=== PATIENT | female | born 1995 ===

== ENCOUNTER 2020-07-28 15:25 | Outpatient (REF) | payer MEDICAID, SELFPAY | END 2020-07-28 15:26 | disposition home or self-care (01) | LOC: HO.LAB 15:25 | PROVIDERS: Visit Provider Internal Medicine | DX: Z20.828 Contact with and (suspected) exposure to other viral communicable diseases (principal) | CPT/HCPCS: C9803; U0003 ==

== ENCOUNTER 2023-10-31 10:09 | Outpatient (REF) | payer MEDICAID, SELFPAY ==
[2023-10-31 11:54] LABS: MANUAL DIFF FLAG NO
[2023-10-31 12:15] LABS: Basophils Percent Auto 0.7 % (0-2); Eosinophils Absolute Auto 0.5 X10*3/uL (0.0-0.4); Eosinophils Percent Auto 7.6 % (0-4); Hematocrit 44.9 % (37.0-47.0); Hemoglobin 14.8 g/dl (12.0-16.0); Imm Gran Abs Auto 0.01 X10*3/uL (0.00-0.03); Imm Gran Pct Auto 0.2 % (0.0-0.4); Lymphocytes Absolute Auto 2.7 X10*3/uL (1.2-4.9); Lymphocytes Percent Auto 45.6 % (20-40); Mean Corpuscular Hemoglobin 27.9 pg (27.0-33.0); Mean Corpuscular Volume 84.7 fL (80.0-98.0); Mean Platelet Volume 9.4 fL (9.4-12.3); Monocytes Absolute Auto 0.4 X10*3/uL (0.1-1.2); Monocytes Percent Auto 6.7 % (2-11); Neutrophils Absolute Auto 2.3 x10*3/uL (2.0-8.3); Neutrophils Percent Auto 39.2 % (45-73); Platelet Count 323 X10*3/uL (160-400); Red Cell Distribution Width 12.3 % (11.0-16.0)
[2023-10-31 13:06] LABS: ~HepC Num1 0.23 S/CO (0.00-0.79); ~Hepatitis C Antibody Nonreactive (Nonreactive)
[2023-10-31 13:27] LABS: Alanine Aminotransferase 26 U/L (0-31); Albumin Level 4.3 g/dL (3.5-5.0); Alkaline Phosphatase 94 U/L (39-117); Anion Gap 12 (12-20); Aspartate Amino Transferase 13 U/L (5-31); Bilirubin Direct 0.2 mg/dL (0.0-0.5); Bilirubin Total 0.3 mg/dL (0.0-1.0); Blood Urea Nitrogen 9 mg/dL (9-16); Calcium 8.9 mg/dL (8.4-10.2); Carbon Dioxide 27 mmol/L (22-29); Chloride 105 mmol/L (96-108); Cholesterol 163 mg/dL (<200); Estimated Glomerular Filt Rate > 60; Glucose Random 78 mg/dL (60-115); HDL Cholesterol 42 mg/dL (>40); LDL Cholesterol Calculated 104 mg/dL (<100); Potassium 3.8 mmol/L (3.3-5.1); Sodium 140 mmol/L (135-145); Total Protein 7.6 g/dL (6.5-8.0); Triglycerides 89 mg/dL (<150)
== END 2023-10-31 10:10 | disposition home or self-care (01) ==
LOC: HO.HHCL 10:09
PROVIDERS: Visit Provider Family Medicine
DX: F64.9 Gender identity disorder, unspecified (principal); Z11.59 Encounter for screening for other viral diseases
CPT/HCPCS: 36415; 80048; 80061; 80076; 85025; 86803

== ENCOUNTER 2024-07-15 11:45 | Outpatient (REF) | payer MEDICAID, SELFPAY ==
[2024-07-15 13:42] LABS: Anion Gap 12 (12-20)
[2024-07-15 13:47] LABS: Albumin Level 4.2 g/dL (3.5-5.0); Aspartate Amino Transferase 17 U/L (5-31); Bilirubin Direct 0.1 mg/dL (0.0-0.5); Bilirubin Total 0.3 mg/dL (0.0-1.0); Blood Urea Nitrogen 12 mg/dL (9-16); Calcium 9.3 mg/dL (8.4-10.2); Carbon Dioxide 26 mmol/L (22-29); Chloride 104 mmol/L (96-108); Estimated Glomerular Filt Rate > 60; Glucose Random 101 mg/dL (60-115); Potassium 4.2 mmol/L (3.3-5.1); Sodium 138 mmol/L (135-145); Total Protein 7.2 g/dL (6.5-8.0)
[2024-07-15 13:57] LABS: Alanine Aminotransferase 27 U/L (0-31); Alkaline Phosphatase 72 U/L (39-117)
[2024-07-16 14:34] LABS: Prolactin 6.9 ng/mL
[2024-07-19 17:53] LABS: Testosterone, Total 28 ng/dL (2-45)
[2024-08-01 14:33] LABS: Estradiol, Ultrasensitive 98 pg/mL
== END 2024-07-15 11:46 | disposition home or self-care (01) ==
LOC: HO.HHCL 11:45
PROVIDERS: Visit Provider Family Medicine
DX: F64.9 Gender identity disorder, unspecified (principal)
CPT/HCPCS: 36415; 80048; 80076; 82670; 82681; 84146; 84403

== ENCOUNTER 2024-07-21 12:09 | Emergency (ER) | payer MEDICAID, SELFPAY ==
[2024-07-21 12:12] VITALS: BP 141/89; PULSE 110; RESP 18; TEMP 36.2; O2SAT 97; BMI 31.8
--- NOTE | 2024-07-21 12:17 | ED_ITS ---
HPI - General Adult General Chief complaint: General Medical Stated complaint: R ear pain jaw pain Time Seen by Provider: 07/21/24 12:27 Source: patient Mode of arrival: ambulatory Limitations: no limitations History of Present Illness ED Provider: Erica Recio NP HPI narrative: patient is a 29-year-old who presents emergency department for evaluation. Endorsing pain to the right ear as well as pain to the jaw. Admits due to have dental extraction for wisdom teeth as well as right upper molar. Has been awaiting a dental appointment over the past few months. Has been taking ib uprofen with minimal relief. Denies any recent dental procedures. Denies associated fevers, chills, headache, neck pain, neck stiffness, sore throat, inability to open the mouth, foul taste, pus-like drainage, bleeding from the gums. Related Data Previous Rx's ?Medication ?Instructions ?Recorded amoxicillin 875 mg-potassium 1 tab PO BID #14 tabs 07/21/24 clavulanate 125 mg tablet ciprofloxacin 0.3 %-dexamethasone 4 drp otic (ears) BID 7 days #7.5 07/21/24 0.1 % ear drops,suspension mL Allergies Allergy/AdvReac Type Severity Reaction Status Date / Time No Known Allergies Allergy Verified 07/21/24 12:17 Review of Systems Review of Systems: Yes all other systems are reviewed and are negative PMFSH Past Medical History Attestation statement: The following information was validated with the patient. Source: old records reviewed Physical Exam ED Vital Signs: Vital Signs - 24 hr 07/21/24 12:12 Temperature 97.2 F Pulse Rate 110 H Respiratory Rate 18 Blood Pressure 141/89 H Pulse Oximetry 97 Oxygen Delivery Method Room Air BMI result Body Mass Index 31.8 Appearance: Alert. Oriented X3. No acute distress. Head: Normal external exam. Normocephalic. Atraumatic. Eyes: PERRLA. EOMI. Conjunctiva and sclera normal. Eyelids normal. ENT: Right external auditory canal with yellow/green exudates, mild edema of the canal. Right TM is erythematous with mild bulging, slightly white opacity. right upper molar #1 dental eulogio at the based abutting the gumline with surrounding erythema, no obvious abscess/fluctuance. Pharynx normal. Uvula midline. Moist mucous membranes.? ?No trismus noted.? No drooling noted.? No muffled voice noted. Neck: Normal inspection. Neck supple. FROM. No adenopathy. No meningeal signs. No neck mass noted.? CVS: Normal heart rate and rhythm. Heart sound normal. No murmurs noted. Pulses normal throughout. Respiratory: No respiratory distress. Lung sounds clear to the apices bilaterally.. Chest nontender. ?No accessory muscle usage noted or decreased air movement noted. Skin: Skin warm and dry.? Normal skin color.? Normal skin turgor. No rashes/lesions/lacerations noted. Extremities: Extremities exhibit normal range of motion.? Extremities nontender. Neuro: Oriented X 3.? No motor deficit.? No sensory deficit.? Reflexes normal. Medical Decision Making Medical Decision Making MDM Narrative: patient is 29 years old presenting for evaluation of right upper dental /jaw pain and right ear pain as per HPI. Overall well-appearing, nontoxic, afebrile. On examination has obvious dental eulogio to tooth #1 mild swelling and erythema to the gingiva without fluctuance to suggest an acute abscess. Denies temperature sensitivity, severe pain/ tenderness of the tooth or purulence to suggest acute pulpitis. no gingival inflammation or bleeding to suggest gingivitis, periodontitis. is already taking a prescribed mouthwash and toothpaste for further management. No trismus, no associated sore throat, no dysphagia, no odynophagia, no hoarseness, no stridor, no dyspnea, low suspicion for paripharyngeal space infection. Uvula is midline, no edema to the soft palate, unlikely peritonsillar abscess. No induration below the angle of the mandible on the neck, nontoxic in appearance, unlikely parapharyngeal abscess. Posterior pharyngeal anatomy is without any evidence of distortion, unlikely retropharyngeal abscess. On examination no tenderness of the floor of the mouth, able to tolerate secretions, no drooling, no nuchal rigidity, no swelling to the neck, unlikely Jovan's angina. On examination of the ear there is otitis externa with mild erythema and bulging of the TM concerning for possible acute otitis media as well. Covering with oral Augmentin as well as Ciprodex drops. No mastoid tenderness to suggest acute mastoiditis. Advised return precautions, outpatient follow-up with PCP/dental provider. All questions answered Differential Diagnosis Differential Diagnoses: The differential diagnosis associated with the presentation includes (See narrative above) External Record Review External record reviewed: Outpatient record Tests considered The following testing was considered but not selected: CT soft tissue neck deferred, see narrative above Prescription Management I considered prescription management with: Pain Medication ( Tylenol/ibuprofen) and Antibiotic Discharge Plan Discharge Clinical Impression: Dental infection Otitis externa Qualifiers: Chronicity: acute Laterality: right Patient Disposition: Home, Self-Care Instructions: Otitis Externa (ED) Additional Instructions: As discussed, it is very important to be persistent and contact your dental office to arrange for follow-up here for excision of the molars as you described. I have sent to prescriptions to your pharmacy, one is an oral antibiotic, in the other is antibiotic drops to put into the ear. Place the drops into the ear as prescribed and you may place a cotton ball on the outside to prevent it from draining. Lie on the opposite side of your head for about 5-10 minutes after insertion of the drops Prescriptions: New amoxicillin-pot clavulanate 875-125 mg tablet 1 tab PO BID Qty: 14 0RF ciprofloxacin-dexamethasone 0.3-0.1 % drops,suspension 4 drp otic (ears) BID 7 Days Qty: 7.5 0RF Referrals: Vannesa Roca MD [Primary Care Provider] - Discharge Date/Time: 07/21/24 12:31 Print Language: Palauan
[2024-07-21 12:30] VITALS: BP 141/89; PULSE 110; RESP 18; TEMP 36.2; O2SAT 97
== END 2024-07-21 12:31 | disposition home or self-care (01) ==
PROVIDERS: Emergency Provider Emergency Medicine; PCP Internal Medicine
DX: H60.91 Unspecified otitis externa, right ear (principal); K02.9 Dental caries, unspecified; H92.01 Otalgia, right ear; R68.84 Jaw pain
CPT/HCPCS: 99282

== ENCOUNTER 2024-08-26 17:49 | Inpatient (IN) | payer MEDICAID, SELFPAY ==
--- NOTE | ~2024-08-26 | CT_ITS ---
CLINICAL HISTORY: tachycardia, chest pain CT angiography chest with contrast. 3D Postprocessing. Comparison: CR - XR CHEST 2V - 08/26/24 19:04 EST Findings: The heart size is normal. RV/LV ratio is normal. The thoracic aorta is normal caliber. No pulmonary artery filling defects. The visualized thyroid and mediastinum are unremarkable. No consolidation or effusion. The upper abdomen is unremarkable. The bones are intact. IMPRESSION: 1. No pulmonary embolus. This document has been electronically signed by: Zeb Murphy MD on 08/26/2024 23:04:19
--- NOTE | ~2024-08-26 | XR_ITS ---
CLINICAL HISTORY: CP 2 view chest x-ray Comparison: None Findings: The lungs are clear. Heart size is normal. No acute fracture. IMPRESSION: 1. No acute findings. This document has been electronically signed by: Zeb Murphy MD on 08/26/2024 19:27:18
--- NOTE | 2024-08-26 17:57 | ECG_ITS ---
Test Reason : CP Blood Pressure : */* mmHG Vent. Rate : 104 BPM Atrial Rate : 104 BPM P-R Int : 156 ms QRS Dur : 140 ms QT Int : 380 ms P-R-T Axes : 63 21 21 degrees QTcB Int : 499 ms Sinus tachycardia Right bundle branch block Abnormal ECG No previous ECGs available Referred By: Nataly Richard Electronically Signed By: ADAL STALLWORTH MD
[2024-08-26 18:36] VITALS: BP 116/80; PULSE 108; RESP 18; TEMP 36.8; O2SAT 99; BMI 31.9
--- NOTE | 2024-08-26 18:36 | ED.GENADULT ---
HPI - General Adult General Chief complaint: Upper Respiratory Symptoms Stated complaint: throat/chest pain Time Seen by Provider: 08/26/24 21:08 Source: patient Mode of arrival: ambulatory Limitations: no limitations History of Present Illness ED Provider: BRENDEN SANTOS narrative: 29 yo patient who is on estrogen therapy had dental infection on 08/14 started on augmentin was able to have the tooth removed then had molar removed by dentist. Finished abx on 08/21. She has done well but then last night developed sharp central chest pain and took ibuprofen. [place] sweaty and hot. Denies dyspnea, nausea, it is not pleuritic. Has no known hx of VTE. Denies any recent travel. Has been on HRT for 6+ months without issue. Denies cough. She notes some pain in her throat as well. MD complaint: chest pain Onset (ago): day(s) (1) Location: mouth and chest Radiation: non-radiation Severity: moderate Quality: stabbing Pain Consistency: intermittent Relieving factors: none Exacerbating factors: none Associated symptoms: fever/chills Treatments prior to arrival: none Related Data Previous Rx's ?Medication ?Instructions ?Recorded amoxicillin 875 mg-potassium 1 tab PO BID #14 tabs 07/21/24 clavulanate 125 mg tablet ciprofloxacin 0.3 %-dexamethasone 4 drp otic (ears) BID 7 days #7.5 07/21/24 0.1 % ear drops,suspension mL Allergies Allergy/AdvReac Type Severity Reaction Status Date / Time No Known Allergies Allergy Verified 08/26/24 18:41 Review of Systems Review of Systems: Constitutional : No Weight loss, No Fever, pos Chills, pos sweats ENT/Mouth : pos sore throat, No Rhinorrhea Eyes: No Eye Pain, No Swelling Cardiovascular : pos Chest Pain, no SOB, no Dyspnea on Exertion, No Orthopnea, No Edema, No Palpitations Respiratory : No Cough, No Sputum Gastrointestinal : no Nausea, No Vomiting, No Diarrhea, No abdominal Pain, No Hematochezia, No Melena Genitourinary : No Dysuria, No Urinary Frequency Musculoskeletal : No joint pain, No Myalgias, No Joint Swelling Skin : No Skin Lesions, No rash Neuro : No Weakness, No Numbness, No Dizziness, No Headache All other systems reviewed and are negative PMFSH Past Medical History Attestation statement: The following information was validated with the patient. Source: old records reviewed Medical History [id number] transgender person Social History Social History Patient Tobacco Use Status: Never used Tobacco Smoked in Last 30 Days: No Use of substances other than those prescribed or required for medical reasons: No Advance Directives: No Advance Directives Information Provided: No Do you have a plan to hurt others: No Plan Patient : No Physical Exam ED Vital Signs: Vital Signs - 24 hr 08/26/24 18:36 08/26/24 21:07 08/26/24 23:02 Temperature 98.3 F Pulse Rate 108 H 93 Respiratory Rate 18 20 Blood Pressure 116/80 131/81 Pulse Oximetry 99 98 98 Oxygen Delivery Method Room Air Room Air Room Air BMI result Body Mass Index 31.9 Appearance: Alert. Oriented X3. No acute distress. Eyes: Pupils equal, round and reactive to light. ENT: Pharynx normal. Neck: Normal inspection. Neck supple. CVS: Normal heart rate and rhythm. Pulses normal. Respiratory: No respiratory distress. Breath sounds normal. Abdomen: Soft and nontender. Skin: Skin warm and dry. Normal skin color. Normal skin turgor. Extremities: No lower extremity edema. No calf ttp Neuro: Oriented X 3. No motor deficit. No sensory deficit. CN2-12 intact Course Course Course Narrative: This is an RME: Additional HPI, ROS, PE not included below will be deferred to primary provider. RME assessment and note performed by: Nataly Richard PA-C This is a 29-year-old who presents to the ER with complaints of chest pain and sore throat since last night. Sxs intermittent. No CP now, resolved after motrin dose. Does report that he had tooth extraction several weeks ago. Plan: Viral swabs, EKG, CXR, labs Medications Administered Generic Name Dose Route Start Last Admin Trade Name Freq PRN Reason Stop Dose Admin Sodium Chloride 3 ml 08/27/24 00:00 08/27/24 00:25 0.9 % Sodium Chloride Flush 3 Ml Syringe IVFLUSH Not Given QSHIFT BRANDEE Discontinued Medications Generic Name Dose Route Start Last Admin Trade Name Freq PRN Reason Stop Dose Admin Aspirin 325 mg 08/26/24 23:12 08/26/24 23:35 Aspirin 325 Mg Tablet PO 08/26/24 23:13 325 mg ONCE ONE Administration Enoxaparin Sodium 90 mg 08/26/24 23:13 08/26/24 23:35 Enoxaparin Sodium 40 Mg/0.4 Ml Syringe SUBCUT 08/26/24 23:14 90 mg ONCE ONE Administration Iohexol 65 ml 08/26/24 22:12 08/26/24 22:13 Iohexol 350 Mg/Ml 100 Ml Infus..Btl IV 08/26/24 22:13 65 ml ONCE ONE Administration Procedures Procedure Narrative Procedure Narrative: limited bedside ECHO no effusion on apical subxiphoid parasterna Medical Decision Making Medical Decision Making [facility] Narrative: 29 yo patient on estrogen therapy now here with c/o sharp stabbing chest pain after recent tooth extraction no hx of childhood murmurs, no IVDA, did have some chills and sweats. At this time, trop x 2 given elevation, likely CTA given possible VTE in setting of estrogen use, slight prodrome could also be myocarditis - no effusion on bedside ECHO. Likely admit Differential Diagnosis Differential Diagnoses: The differential diagnosis associated with the presentation includes VTE, myocarditis, pericarditis, no risk factors for ACS Admission/Observation Consideration of admission/observation: Escalation of care including admission/observation considered admit for trend trop every 6 to 8 hours Consult Healthcare Provider Management of the patient was discussed with: Hospitalist (will admit) and Public Relations Senior Associate (Dr. Lopez aware reccs trend trop) Lab Data [facility] Lab Attestation statement: I reviewed the patient's lab results. 08/26/24 19:26 08/26/24 19:26 Labs: Lab Results 08/26/24 08/26/24 Range/Units 19:26 21:17 WBC 7.4 (4.8-10.8) X10*3/uL RBC 4.85 (4.20-5.50) X10*6/uL Hgb 13.6 (12.0-16.0) g/dl Hct 40.5 (37.0-47.0) % MCV 83.5 (80.0-98.0) fL MCH 28.0 (27.0-33.0) pg MCHC 33.6 (31.0-35.0) g/dl RDW 12.5 (11.0-16.0) % Plt Count 348 (160-400) X10*3/uL MPV 9.1 L (9.4-12.3) fL Immature Gran % (Auto) 0.3 (0.0-0.4) % Neut % (Auto) 69.1 (45-73) % Lymph % (Auto) 20.7 (20-40) % Smith % (Auto) 5.2 (2-11) % Eos % (Auto) 4.2 H (0-4) % Baso % (Auto) 0.5 (0-2) % Lymph # (Auto) 1.5 (1.2-4.9) X10*3/uL [place] # (Auto) 0.4 (0.1-1.2) X10*3/uL Eos # (Auto) 0.3 (0.0-0.4) X10*3/uL Baso # (Auto) 0.0 (0.0-0.2) X10*3/uL Abs Immat Gran (auto) 0.02 (0.00-0.03) X10*3/uL Absolute Neuts (auto) 5.1 (2.0-8.3) x10*3/uL Absolute Nucleated RBC 0.000 (0.0-0.012) X10*3/uL Nucleated RBC % (auto) 0.0 (0.0-0.2) /100WBC ESR 22 H (0-20) MM/HR D-Dimer High Sensitivty 165 NG/ML Sodium 138 (135-145) mmol/L Potassium 4.9 (3.3-5.1) mmol/L Chloride 105 (96-108) mmol/L Carbon Dioxide 25 (22-29) mmol/L Anion Gap 13 (12-20) BUN 12 (9-16) mg/dL Creatinine 0.70 (0.5-1.4) mg/dL Estim Creat Clear Calc 138.4 Estimated GFR > 60 Random Glucose 91 (60-115) mg/dL Lactic Acid 1.0 (0.5-2.0) mmol/L Calcium 8.9 (8.4-10.2) mg/dL Magnesium 2.1 (1.6-2.6) mg/dL Total Bilirubin 0.2 (0.0-1.0) mg/dL Direct Bilirubin < 0.2 (0.0-0.5) mg/dL AST 26 (5-31) U/L ALT 30 (0-31) U/L Alkaline Phosphatase 82 (39-117) U/L Troponin I High Sens 217.8 H* 400.3 H* D (<3.5-17.0) ng/L C-Reactive Protein 1.38 H (< or = 0.50) mg/dL B-Natriuretic Peptide 11 (<100) pg/mL Total Protein 7.7 (6.5-8.0) g/dL Albumin 4.0 (3.5-5.0) g/dL Beta HCG, Quant < 2 mIU/mL Influenza Type A (PCR) NEGATIVE (Negative) Influenza Type B (PCR) NEGATIVE (Negative) RSV RNA Qual (PCR) NEGATIVE (Negative) SARS-CoV-2 RNA (RT-PCR) NEGATIVE (Negative) S. pyogenes GrpA FAWN Negative (Negative) Independent Interpretation I performed an independent interpretation of an: EKG and CT Scan Interpretation: Rate: 104 Rhythm: NSR [place]: normal Normal P waves. Normal BIPIN. RBBB ST T wave : no SANTOS qTC: 499 prior studies: no prior The study has been interpreted contemporaneously by me. . Critical Care Time Critical Care Time Critical Care Time: Yes Total Critical Care Time: 40 Attestation: repeat labs, medical consult, bedside ECHO, VTE work up I attest to this time spent taking care of the patient Discharge Plan Discharge Clinical Impression: Elevated troponin Chest pain Qualifiers: Chest pain type: unspecified Qualified Code(s): R07.9 - Chest pain, unspecified Patient Disposition: Admitted As Inpatient
[2024-08-26 19:32] LABS: MANUAL DIFF FLAG NO
[2024-08-26 19:33] LABS: Basophils Percent Auto 0.5 % (0-2); Eosinophils Absolute Auto 0.3 X10*3/uL (0.0-0.4); Eosinophils Percent Auto 4.2 % (0-4); Hematocrit 40.5 % (37.0-47.0); Hemoglobin 13.6 g/dl (12.0-16.0); Imm Gran Abs Auto 0.02 X10*3/uL (0.00-0.03); Imm Gran Pct Auto 0.3 % (0.0-0.4); Lymphocytes Absolute Auto 1.5 X10*3/uL (1.2-4.9); Lymphocytes Percent Auto 20.7 % (20-40); Mean Corpuscular HGB Conc 33.6 g/dl (31.0-35.0); Mean Corpuscular Volume 83.5 fL (80.0-98.0); Mean Platelet Volume 9.1 fL (9.4-12.3); Monocytes Absolute Auto 0.4 X10*3/uL (0.1-1.2); Monocytes Percent Auto 5.2 % (2-11); Neutrophils Absolute Auto 5.1 x10*3/uL (2.0-8.3); Neutrophils Percent Auto 69.1 % (45-73); Platelet Count 348 X10*3/uL (160-400); Red Blood Count 4.85 X10*6/uL (4.20-5.50); Red Cell Distribution Width 12.5 % (11.0-16.0); White Blood Count 7.4 X10*3/uL (4.8-10.8)
[2024-08-26 19:42] LABS: IDNOW Serial# 08D9AD1C; Strep A Nucleic Acid Negative (Negative)
[2024-08-26 19:50] LABS: Alanine Aminotransferase 30 U/L (0-31); Alkaline Phosphatase 82 U/L (39-117); Anion Gap 13 (12-20); Aspartate Amino Transferase 26 U/L (5-31); Bilirubin Direct < 0.2 mg/dL (0.0-0.5); Bilirubin Total 0.2 mg/dL (0.0-1.0); Blood Urea Nitrogen 12 mg/dL (9-16); Calcium 8.9 mg/dL (8.4-10.2); Carbon Dioxide 25 mmol/L (22-29); Chloride 105 mmol/L (96-108); Creatinine Clr Calc Pharmacy 138.4; Estimated Glomerular Filt Rate > 60; Glucose Random 91 mg/dL (60-115); Magnesium 2.1 mg/dL (1.6-2.6); Potassium 4.9 mmol/L (3.3-5.1); Sodium 138 mmol/L (135-145); Total Protein 7.7 g/dL (6.5-8.0)
[2024-08-26 20:02] LABS: Troponin-I High Sensitivity 217.8 ng/L (<3.5-17.0)
[2024-08-26 20:11] LABS: Influenza A PCR NEGATIVE (Negative); Influenza B PCR NEGATIVE (Negative); Resp Syncy Virus RNA Qual PCR NEGATIVE (Negative); SARS COV2 PCR INHOUSE NEGATIVE (Negative)
[2024-08-26 21:07] VITALS: BP 131/81; PULSE 93; RESP 20; O2SAT 98
--- NOTE | 2024-08-26 21:27 | PC.NURSE ---
pt a&ox4, respirations even and unlabored. pt reporting onset of throat and upper chest pain starting yesterday. pt reports she has been on recent antibiotics for a dental procedure but denies any other medication use. pt reports he has been using tylenol and ibuprofen for pain control. 20G placed in left ac, labs obtained. at bedside. pt normal sinus on tele 80-85bpm.
[2024-08-26 21:37] LABS: D Dimer High Sensitivity 165 NG/ML
[2024-08-26 21:52] LABS: C Reactive Protein 1.38 mg/dL (< or = 0.50); HCG Quantitative < 2 mIU/mL
[2024-08-26 21:54] LABS: Troponin-I High Sensitivity 400.3 ng/L (<3.5-17.0)
[2024-08-26] MEDS: iohexoL 350 MG/ML 100 ML INFUS..BTL 65 ML IV (22:13)
[2024-08-26 22:59] LABS: B Type Natriuretic Peptide 11 pg/mL (<100)
[2024-08-26 23:02] VITALS: O2SAT 98
--- NOTE | 2024-08-26 23:15 | PM.IMHP ---
History of Present Illness Date of Service: 08/26/24 Chief Complaint: Chest pain This is a 29-year-old trans female on estrogen therapy who presents to the emergency department for evaluation of chest pain. Patient states she had sudden onset of chest pain when she was lying down in bed last night. It was while at rest and she took ibuprofen for it. It radiated to the jaw. Patient had a similar episode on the day of presentation around 17:00 in the evening when she was playing video games. This was midsternal, radiated the jaw and associated with sweating. Worse with ambulation but did not relieve with rest. Patient again took ibuprofen for it in the chest pain lasted until she came to the ER. No associated nausea or vomiting. Does not know of any family history of early CAD. Did have tooth removed due to dental infection on 08/14 and completed 7 day course of Augmentin. No fever, chills, shortness of breath, abdominal pain, symptoms of gastroesophageal reflux disease, rash, changes in urinary or bowel habits. In the emergency department, troponin found to be elevated. Cardiology was consulted who requested admission. Review of Systems Cardiovascular: Cardiovascular: Reports chest pain and Reports chest pain at rest [facility] Medical History [id number] transgender person Pertinent family history: Does not know of significant family history Social History Patient Tobacco Use Status: Never used Tobacco Smoked in Last 30 Days: No Use of substances other than those prescribed or required for medical reasons: No Advance Directives: No Advance Directives Information Provided: No Do you have a plan to hurt others: No Plan Patient : No Meds Allergies Allergy/AdvReac Type Severity Reaction Status Date / Time No Known Allergies Allergy Verified 08/26/24 18:41 Physical Exam Vital Signs and Narrative: Vital Signs: Last Vital Signs Temp 98.3 F 08/26/24 18:36 Pulse 93 08/26/24 21:07 Resp 20 08/26/24 21:07 BP 131/81 08/26/24 21:07 Pulse Ox 98 08/26/24 23:02 O2 Del Method Room Air 08/26/24 23:02 BMI result Body Mass Index 31.9 Middle-aged female lying in bed in no distress Neck supple, no JVD Regular rate and rhythm, S1-S2 heard Regular breath sounds bilaterally, no wheezing or crackles appreciated Abdomen soft nontender, no guarding, no rigidity Patient is awake, alert and oriented to self, place, time and person ; no focal motor deficit Psych: Normal mood No pedal edema Results Labs 08/26/24 19:26 08/26/24 19:26 Labs: Laboratory Results - last 24 hr 08/26/24 08/26/24 19:26 21:17 MCV 83.5 MCH 28.0 MCHC 33.6 RDW 12.5 Plt Count 348 MPV 9.1 L Immature Gran % (Auto) 0.3 Neut % (Auto) 69.1 Lymph % (Auto) 20.7 [place] % (Auto) 5.2 Eos % (Auto) 4.2 H Baso % (Auto) 0.5 Lymph # (Auto) 1.5 [place] # (Auto) 0.4 Eos # (Auto) 0.3 Baso # (Auto) 0.0 Abs Immat Gran (auto) 0.02 Absolute Neuts (auto) 5.1 Absolute Nucleated RBC 0.000 Nucleated RBC % (auto) 0.0 D-Dimer High Sensitivty 165 Anion Gap 13 Estim Creat Clear Calc 138.4 Estimated GFR > 60 Random Glucose 91 Lactic Acid 1.0 Calcium 8.9 Magnesium 2.1 Total Bilirubin 0.2 Direct Bilirubin < 0.2 AST 26 ALT 30 Alkaline Phosphatase 82 Troponin I High Sens 217.8 H* 400.3 H* D C-Reactive Protein 1.38 H B-Natriuretic Peptide 11 Total Protein 7.7 Albumin 4.0 Beta HCG, Quant < 2 Influenza Type A (PCR) NEGATIVE Influenza Type B (PCR) NEGATIVE RSV RNA Qual (PCR) NEGATIVE SARS-CoV-2 RNA (RT-PCR) NEGATIVE S. pyogenes GrpA FAWN Negative Assessment and Plan (1) Chest pain: Qualifiers: Chest pain type: unspecified Qualified Code(s): R07.9 - Chest pain, unspecified Status: Acute (2) Elevated troponin: Status: Acute Plan This is a 29-year-old trans female on estrogen therapy who presents to the emergency department for evaluation of chest pain. #. Chest pain with elevated troponin: Will admit patient with cardiac monitoring. Cardiology was consulted from the ER, appreciate assistance. Given aspirin and 1 dose of therapeutic Lovenox in the ER. Echo pending. No fever DVT prophylaxis: Lovenox Full code Admit as inpatient and will require two night minimum hospital stay for evaluation of chest pain and elevated troponin (as above), which is not possible in a lesser acute setting. Cardiology consult pending Quality Stroke Does the patient have a stroke diagnosis?: No VTE Prior VTE?: No VTE Risk Level:: Medical - moderate - high VTE Device Contraindication: Treatment Not Indicated VTE Drug Contraindication: N/A - Med Ordered
[2024-08-26 23:16] LABS: Erythrocyte Sedimentation Rate 22 MM/HR (0-20)
[2024-08-26] MEDS: Aspirin 325 MG TABLET PO (23:35)
[2024-08-26] MEDS: Enoxaparin Sodium 40 MG/0.4 ML SYRINGE 90 MG SUBCUT (23:35)
--- NOTE | 2024-08-26 23:38 | PC.NURSE ---
pt medicated per mar, tolerated well with water.
[2024-08-27 00:57] VITALS: BP 125/79; PULSE 90; RESP 16; TEMP 36.6; O2SAT 99
[2024-08-27 06:11] LABS: Hematocrit 40.9 % (37.0-47.0); Hemoglobin 13.9 g/dl (12.0-16.0); Mean Corpuscular Hemoglobin 28.4 pg (27.0-33.0); Mean Corpuscular Volume 83.6 fL (80.0-98.0); Mean Platelet Volume 9.1 fL (9.4-12.3); Platelet Count 341 X10*3/uL (160-400); Red Blood Count 4.89 X10*6/uL (4.20-5.50); Red Cell Distribution Width 12.6 % (11.0-16.0); White Blood Count 9.4 X10*3/uL (4.8-10.8)
[2024-08-27 06:15] LABS: Anion Gap 10 (12-20); Blood Urea Nitrogen 11 mg/dL (9-16); Carbon Dioxide 28 mmol/L (22-29); Chloride 104 mmol/L (96-108); Creatinine Clr Calc Pharmacy 115.3; Estimated Glomerular Filt Rate > 60; Glucose Random 100 mg/dL (60-115); Potassium 4.2 mmol/L (3.3-5.1); Sodium 138 mmol/L (135-145)
[2024-08-27 06:24] VITALS: BP 113/77; PULSE 88; RESP 17; TEMP 36.5; O2SAT 98
[2024-08-27 06:26] LABS: Troponin-I High Sensitivity 650.6 ng/L (<3.5-17.0)
--- NOTE | 2024-08-27 07:00 | CA_ITS ---
Transthoracic Echocardiogram Patient (Last, First, Middle): Jessica Nicole, Gender: Female Date of : 1995 Age: 29 Procedure Date: 08/27/2024 Procedure Type: Transthoracic Echocardiogram Location: ER Height: 170.18 cm Weight: 92.08 kg BSA: 2.03 m2 Heart Rate: 85 bpm BP: 107 / 77 mmHg Billiard Table Assembler: CURLY Referring MD: Mariana Rosales MD Symptoms: elevated troponin Study Quality: Adequate w contrast ECG Rhythm: Sinus Conclusions: - 1. Normal LV ejection fraction 55-60% with regional wall motion abnormality in RCA territory 2. Normal cardiac valvular Dopplers 3. Normal RV systolic pressure 4. No pericardial effusion Findings Procedure Information Contrast agent, definity, is being given per protocol without apparent complications. Left Ventricle Normal left ventricular size, thickness, and systolic function. The visually estimated ejection fraction is between 55-60%. Diastolic function is normal for age. Wall Motion Rest Echo Findings The basal inferior, mid inferior, apical septum, and mid inferoseptal segments are hypokinetic. All other scored wall segments showed normal motion. Right Ventricle Normal right ventricular cavity size and systolic function. Atria Both atria are normal in size. There is no evidence of interatrial shunt. Aortic Valve Normal aortic valve structure and function. There is no aortic valve stenosis. There is no aortic valve regurgitation. Mitral Valve Normal mitral valve structure and function. There is trace mitral valve regurgitation. There is no mitral valve stenosis. Pulmonic Valve The pulmonic valve is likely normal. Tricuspid Valve Normal tricuspid valve structure. There is trace tricuspid valve regurgitation. The right ventricular systolic pressure is normal. The right ventricular systolic pressure is 10 mmHg. Normal right atrial pressure. There is no evidence of pulmonary hypertension. Great Vessels All visible segments of the aorta are normal in size. The pulmonary artery was not well visualized. There is no dilatation of the ascending aorta measuring 2.60 cm. There is no evidence of plaque in the aorta. Venous The inferior vena cava is normal in size and collapses greater than 50% with inspiration. Pericardium/Pleural There is no evidence of pericardial effusion. Prior Study Comparison No prior study available for comparison. Measurements 2D Linear Measurements IVSd: 1.01 0.6-0.9/0.6-1.0 cm LVIDd: 4.52 3.9-5.3/4.2-5.9 cm LVIDd Index: 2.23 2.4-3.2/2.2-3.1 cm/m2 LVIDs: 2.88 2.0-3.6 cm LVPWd: 0.90 0.7-1.1 cm LA Diam: 3.10 2.7-3.8/3.0-4.0 cm LAIDs Index: 1.53 1.5-2.3 cm/m2 LV Mass: 180.96 67-162/88-224 g LV Mass Index: 89.14 43-95/49-115 g/m2 LVOT Diam: 2.10 3.0+(-)1.3 cm 2D Systolic Function EF 4C: 56.90 >55% EF 2C: 55.40 >55% EF BiP: 56.00 >55% Mitral Valve MV Pk E: 0.90 MV PK A: 0.67 MV Decel Time: 208.00 E/A: 1.40 E'Lateral: 17.10 E'Medial: 9.14 E/E' Med: 9.90 E/E' Lat: 5.30 PHT: 61.00 MVA PHT: 3.61 Decel [place]: 4.35 Aortic Valve AoV Pk Jonel: 1.07 AoV Mn Jonel: 0.80 AoV VTI: 0.22 AoV Pk Grad: 5.00 Aov Mn Grad: 3.00 EME Cont.VTI: 3.08 LVOT LVOT Pk Jonel: 0.98 LVOT Mn Jonel: 0.70 LVOT VTI: 0.20 LVOT Pk Grad: 4.00 LVOT Mn Grad: 2.00 LVOT Diam: 2.10 LVOT Area: 3.46 Diastolic Function MV Pk E: 0.90 MV Pk A: 0.67 E/A: 1.40 E'Medial: 9.14 E/E' Med: 9.90 E' Laterial: 17.10 E/E' Lat: 5.30 Right Ventricle TAPSE (mm): 21.40 TVS' Jonel: 12.20 Tricuspid Valve TR Pk Jonel: 1.36 TR Pk Grad: 7.00 RA Press: 3.00 RVSP: 10.00 Great Vessels Aorta Sinus of Valsalva: 3.10 2.0-3.5 cm Ao Asc: 2.60 2.1-3.4 cm Pulmonary Valve PV Pk Jonel: 0.96 Peak PV Grad: 4.00 Updated in Other Vendor System with Status of Final Pankaj Lopez MD electronically signed on 08/27/2024 11:40:10 AM with status of Final
[2024-08-27 08:19] VITALS: BP 107/77; PULSE 88; RESP 18; TEMP 36.7; O2SAT 99
[2024-08-27] MEDS: 0.9 % Sodium Chloride Flush 3 ML SYRINGE IVFLUSH (08:22)
--- NOTE | 2024-08-27 08:28 | PC.NURSE ---
pt is alert and oriented, skin pwd, respirations even and unlabored, ls clear, pt denies pain at this time, vs stable, ns on the monitor
--- NOTE | 2024-08-27 09:37 | PC.NURSE ---
patient a&ox3, vss, security monitor intact nsr on monitor, rr equal/non labored, lungs clear, pt denying pain/discomfort, call edmond within reach, plan of care ongoing
--- NOTE | 2024-08-27 09:54 | PHA.MEDREC ---
Addendum entered by Mary Anne Prado RPh 08/27/24 10:06: reviewed by [facility]. Original Note: Pharmacy Consult ? Medication Reconciliation Pharmacy has completed the medication reconciliation. Spoke with patient and they were able to confirm their medications. Patient confirmed they finished the Amoxicilin-pot tablet on 08/14 and they finished the Ciprofloxacin tablet about a week before that. They confirmed they were taking the Depo-Estradiol shot once a week but states they have not been able to take it since the first week of August. They confirmed they are alternating between Ibuprofen and Acetaminophen daily as needed for pain. They confirmed they have not taken their medication since yesterday morning.
[2024-08-27 10:14] VITALS: BMI 30.9
--- NOTE | 2024-08-27 10:22 | PC.NURSE ---
updated bed weight obtained, phlebotomy drawing PTT
[2024-08-27 10:37] LABS: INTERNATIONAL NORM RATIO 1.2 (0.9-1.1); Prothrombin Time 13.7 SEC (10.9-12.4)
[2024-08-27 10:40] LABS: PTT Heparin Drip 37.5 SEC (53-77.9)
--- NOTE | 2024-08-27 10:59 | P.CONCA_ITS ---
History of Present Illness History of Present Illness Date of Service: 08/27/24 Requesting physician: Wilver Ortiz Chief complaint: chest pain Narrative: Thank you for referring Jessica in cardiology consultation today. She is a 29-year-old trans female who is currently in the phase of transition. She restarted her estrogen hormonal therapy in June after a lapse of few year. She said in July she was having right ear infection and was treated with antibiotics. She continued to have symptoms and subsequently he was diagnose with infection of the 2nd right upper molar which was then extracted and given another 10 day course of antibiotics. The following day after stopping her antibiotics she had episode of upper retrosternal chest discomfort radiating to the neck felt like pressure. She thought this was inflammation she took Motrin. Symptoms then subsided and she went to better on midnight. Following day in the evening she was playing video games and also having energy drink in his symptoms started again. She then decided take Advil again but symptoms then dissipate and called to come to the emergency room. Came to the emergency room by the time the symptoms were improving and EKG was done which showed no significant ischemia. However troponin was significantly elevated and continue to rise consistent with myocardial injury. Has remained chest pain-free. No fever no chills. No leukocytosis or elevated D-dimers. Cardiology consult was sought due to elevated troponins are chest pain syndrome. Patient denies any other symptoms. Said she has started transitioning in 1999 but then had stopped the hormonal therapy as there was some social situation making her not able to focus on her therapy. She has not had any gender affirming surgery Review of Systems 2 Constitutional: Constitutional: Reports no additional constitutional complaints Eyes: Eyes: Reports no additional eye complaints Cardiovascular: Cardiovascular: Reports chest pain at rest (With diaphoresis), Denies rapid heart rate, Denies leg edema, Denies lightheadedness and Denies dyspnea Respiratory: Respiratory: Denies no additional respiratory complaints and Denies dyspnea Gastrointestinal: Gastrointestinal: Reports no additional gastrointestinal complaints Genitourinary: Genitourinary: Reports no additional female genitourinary complaints Musculoskeletal: Musculoskeletal: Reports no additional musculoskeletal complaints Integumentary/Breasts: Skin/Breast: Reports system reviewed and no additional complaints, except as docu Neurologic: Reports system reviewed and no additional complaints, except as documented [facility] Past Medical History Medical History [id number] transgender person Social History Social History Household Members: Other Household Members Other:: mother Housing: Apartment Do you presently have visiting nurse or other home services: No Patient Tobacco Use Status: Never used Tobacco Smoked in Last 30 Days: No Use of substances other than those prescribed or required for medical reasons: No Have you been hit, kicked, punched, or otherwise hurt by someone within the past year? If so, by whom?: No Is there a partner from a previous relationship who is making you feel unsafe now?: No Are you made to feel afraid or neglected: No Advance Directives: No Advance Directives Information Provided: No Do you have a plan to hurt others: No Plan Recently lost weight without trying: No Nutrition Risks: No Nutritional Risk Patient : No : No Meds Allergies Allergy/AdvReac Type Severity Reaction Status Date / Time No Known Allergies Allergy Verified 08/26/24 18:41 Active Medications: Current Medications Acetaminophen (Acetaminophen 325 Mg Tablet) 650 mg PO Q6H PRN PRN Reason: Pain, Mild 1-3,fever,headache Calcium Carbonate (Calcium Carbonate 750 Mg Tab.Chew) 750 mg PO Q4H PRN PRN Reason: Heartburn Heparin Sodium (Porcine) (Heparin Sodium,Porcine 5,000 Unit/Ml Vial) 3,600 unit 40 unit/kg (3600 unit) IVPUSH PROTOCOL BOLUS PRN; Protocol PRN Reason: 40 unit/kg - Heparin Protocol Heparin Sodium (Porcine) (Heparin Sodium,Porcine 5,000 Unit/Ml Vial) 7,200 unit 80 unit/kg (7200 unit) IVPUSH PROTOCOL BOLUS PRN; Protocol PRN Reason: 80 unit/kg - Heparin Protocol Heparin Sodium/Sodium Chloride (Heparin Sodium,Porcine/1/2ns) 25,000 unit in 250 mls @ 0 mls/hr IVCONT .Q0M [facility]; Protocol Magnesium Hydroxide (Milk Of Magnesia 30 Ml Oral.Susp) 30 ml PO DAILY PRN PRN Reason: Constipation Melatonin (Melatonin 3 Mg Tablet) 6 mg PO BEDTIME PRN PRN Reason: Insomnia Ondansetron HCl (Ondansetron Hcl 4 Mg/2 Ml Vial) 4 mg IVPUSH Q8H PRN PRN Reason: Nausea and Vomiting Sodium Chloride (0.9 % Sodium Chloride Flush 3 Ml Syringe) 3 ml IVFLUSH QSHIFT [facility] Last Admin: 08/27/24 08:22 Dose: 3 ml Home Medications ?Medication ?Instructions ?Recorded ?Confirmed ?Last Taken ?Type acetaminophen 325 mg tablet 325 mg PO DAILY PRN Pain 08/27/24 08/27/24 Unknown History albuterol sulfate 90 mcg/actuation 2 puff inhalation Q4H PRN wheezing 08/27/24 08/27/24 Unknown History aerosol inhaler (Ventolin HFA) estradiol cypionate 5 mg/mL 2 mg IM QWEEK 08/27/24 08/27/24 3 Weeks Ago History intramuscular oil (Depo-Estradiol) ~08/06/24 ibuprofen 400 mg tablet 400 mg PO DAILY PRN Pain 08/27/24 08/27/24 Unknown History spironolactone 50 mg tablet 50 mg PO DAILY 08/27/24 08/27/24 08/26/24 History Physical Exam 2 Vital Signs: Vital Signs: Last Vital Signs Temp 98.0 F 08/27/24 08:19 Pulse 88 08/27/24 08:19 Resp 18 08/27/24 08:19 BP 107/77 08/27/24 08:19 Pulse Ox 99 08/27/24 08:19 O2 Del Method Room Air 08/27/24 08:19 BMI result Body Mass Index 30.9 Const: General: cooperative, comfortable, no acute distress, alert and awake Nutritional Appearance: obese Orientation/consciousness: patient oriented x3 Limitations: no limitations HEENT: Head: Yes normocephalic and Yes atraumatic Neck: Neck: Yes trachea midline, Yes supple and Yes no JVD Resp: Effort & Inspection: normal respiratory effort Auscultation: clear to auscultation bilaterally Cardio: Jugular venous distension: no JVD Palpation: normal PMI Rate: r egular rate Rhythm: regular rhythm Heart sounds: S1 normal heart sound present, S2 normal heart sound present, no click, no gallops, no murmurs and no rubs GI: Auscultation: normal bowel sounds Skin: General skin exam: no rashes or lesions noted Neuro: General: patient oriented x3 and no focal motor deficits Extrem: General: Yes no clubbing, cyanosis or edema Psych: Appearance: grossly normal Objective Labs and Meds 08/27/24 05:47 08/27/24 05:47 Lab results: Laboratory Results - last 24 hr 08/26/24 08/26/24 08/27/24 19:26 21:17 05:47 WBC 7.4 9.4 RBC 4.85 4.89 Hgb 13.6 13.9 Hct 40.5 40.9 MCV 83.5 83.6 MCH 28.0 28.4 MCHC 33.6 34.0 RDW 12.5 12.6 Plt Count 348 341 MPV 9.1 L 9.1 L Immature Gran % (Auto) 0.3 Neut % (Auto) 69.1 Lymph % (Auto) 20.7 Cherry % (Auto) 5.2 Eos % (Auto) 4.2 H Baso % (Auto) 0.5 Lymph # (Auto) 1.5 Cherry # (Auto) 0.4 Eos # (Auto) 0.3 Baso # (Auto) 0.0 Abs Immat Gran (auto) 0.02 Absolute Neuts (auto) 5.1 Absolute Nucleated RBC 0.000 0.000 Nucleated RBC % (auto) 0.0 0.0 ESR 22 H PT INR aPTT Heparin Protocol D-Dimer High Sensitivty 165 Sodium 138 138 Potassium 4.9 4.2 Chloride 105 104 Carbon Dioxide 25 28 Anion Gap 13 10 L BUN 12 11 Creatinine 0.70 0.84 Estim Creat Clear Calc 138.4 115.3 Estimated GFR > 60 > 60 Random Glucose 91 100 Lactic Acid 1.0 Calcium 8.9 9.0 Magnesium 2.1 Total Bilirubin 0.2 Direct Bilirubin < 0.2 AST 26 ALT 30 Alkaline Phosphatase 82 Troponin I High Sens 217.8 H* 400.3 H* D 650.6 H* D C-Reactive Protein 1.38 H B-Natriuretic Peptide 11 Total Protein 7.7 Albumin 4.0 Beta HCG, Quant < 2 Influenza Type A (PCR) NEGATIVE Influenza Type B (PCR) NEGATIVE RSV RNA Qual (PCR) NEGATIVE SARS-CoV-2 RNA (RT-PCR) NEGATIVE S. pyogenes GrpA FAWN Negative 08/27/24 10:21 WBC RBC Hgb Hct MCV MCH MCHC RDW Plt Count MPV Immature Gran % (Auto) Neut % (Auto) Lymph % (Auto) Cherry % (Auto) Eos % (Auto) Baso % (Auto) Lymph # (Auto) Cherry # (Auto) Eos # (Auto) Baso # (Auto) Abs Immat Gran (auto) Absolute Neuts (auto) Absolute Nucleated RBC Nucleated RBC % (auto) ESR PT 13.7 H INR 1.2 H aPTT Heparin Protocol 37.5 L D-Dimer High Sensitivty Sodium Potassium Chloride Carbon Dioxide Anion Gap BUN Creatinine Estim Creat Clear Calc Estimated GFR Random Glucose Lactic Acid Calcium Magnesium Total Bilirubin Direct Bilirubin AST ALT Alkaline Phosphatase Troponin I High Sens C-Reactive Protein B-Natriuretic Peptide Total Protein Albumin Beta HCG, Quant Influenza Type A (PCR) Influenza Type B (PCR) RSV RNA Qual (PCR) SARS-CoV-2 RNA (RT-PCR) S. pyogenes GrpA FAWN Assessment and Plan (1) NSTEMI (non-ST elevated myocardial infarction): Status: Acute Patient without any significant risk factors currently undergoing gender transition with hormonal therapy presents with acute onset chest pain with elevated troponins consistent with myocardial injury consistent with NSTEMI. Possible etiologies include SCAD, plaque rupture and erosion much less likely although possible. Other possibility includes myocarditis given her recent ear infection although this was more than a month ago. I would currently treat her as an NSTEMI with IV heparin, aspirins, statins and metoprolol therapy. I would consider despite her age that she will require further invasive evaluation to evaluate for coronary anatomy and establish cause of her symptoms. Obtain an echocardiogram to assess for wall motion abnormality. Discussed the need for cardiac catheterization including risks, benefits, alternatives. She understands and agrees. Will follow with you. Procedures Date of Service Date of Service: 08/27/24
[2024-08-27] MEDS: Heparin Sodium,Porcine/1/2NS 25,000 UNIT/250 ML IV.SOLN 10 UNIT IVCONT (11:06)
[2024-08-27] MEDS: Heparin Sodium,Porcine 5,000 UNIT/ML VIAL 4000 UNIT IVPUSH (11:08)
--- NOTE | 2024-08-27 11:09 | PC.NURSE ---
heparin drip started per order
--- NOTE | 2024-08-27 11:27 | P.PNIM_ITS ---
Subjective Subjective Date of Service: 08/27/24 Interval History: seen and examined this AM reports feeling slight improvement having formal echo completed no chest pain reported Physical Exam 2 Vital Signs: Vital Signs: Last Vital Signs Temp 98.0 F 08/27/24 08:19 Pulse 88 08/27/24 08:19 Resp 18 08/27/24 08:19 BP 107/77 08/27/24 08:19 Pulse Ox 99 08/27/24 08:19 O2 Del Method Room Air 08/27/24 08:19 BMI result Body Mass Index 30.9 Const: Other: General - no acute distress, appears comfortable, echo being completed Cardiovascular - regular rate and rhythm, S1-S2 Lungs - normal respiratory effort, clear to auscultation bilaterally, no wheezing Abdomen - soft, nontender, no rebound or guarding Extremities - no edema bilaterally Neuro - awake and alert, no focal deficits Objective Data Active Medications Acetaminophen (Acetaminophen 325 Mg Tablet) 650 mg PO Q6H PRN PRN Reason: Pain, Mild 1-3,fever,headache Calcium Carbonate (Calcium Carbonate 750 Mg Tab.Chew) 750 mg PO Q4H PRN PRN Reason: Heartburn Heparin Sodium (Porcine) (Heparin Sodium,Porcine 5,000 Unit/Ml Vial) 3,600 unit 40 unit/kg (3600 unit) IVPUSH PROTOCOL BOLUS PRN; Protocol PRN Reason: 40 unit/kg - Heparin Protocol Heparin Sodium (Porcine) (Heparin Sodium,Porcine 5,000 Unit/Ml Vial) 7,200 unit 80 unit/kg (7200 unit) IVPUSH PROTOCOL BOLUS PRN; Protocol PRN Reason: 80 unit/kg - Heparin Protocol Heparin Sodium/Sodium Chloride (Heparin Sodium,Porcine/1/2ns) 25,000 unit in 250 mls @ 0 mls/hr IVCONT .Q0M [facility]; Protocol Last Admin: 08/27/24 11:06 Dose: 11.17 units/kg/hr, 10 mls/hr Documented By: KAMRON Co-signed By: LESTER Magnesium Hydroxide (Milk Of Magnesia 30 Ml Oral.Susp) 30 ml PO DAILY PRN PRN Reason: Constipation Melatonin (Melatonin 3 Mg Tablet) 6 mg PO BEDTIME PRN PRN Reason: Insomnia Ondansetron HCl (Ondansetron Hcl 4 Mg/2 Ml Vial) 4 mg IVPUSH Q8H PRN PRN Reason: Nausea and Vomiting Sodium Chloride (0.9 % Sodium Chloride Flush 3 Ml Syringe) 3 ml IVFLUSH QSHIFT [facility] Last Admin: 08/27/24 08:22 Dose: 3 ml Documented By: LESTER Labs 08/27/24 05:47 08/27/24 05:47 Labs: Laboratory Results - last 24 hr 08/26/24 08/26/24 08/27/24 19:26 21:17 05:47 MCV 83.5 83.6 MCH 28.0 28.4 MCHC 33.6 34.0 RDW 12.5 12.6 Plt Count 348 341 MPV 9.1 L 9.1 L Immature Gran % (Auto) 0.3 Neut % (Auto) 69.1 Lymph % (Auto) 20.7 [place] % (Auto) 5.2 Eos % (Auto) 4.2 H Baso % (Auto) 0.5 Lymph # (Auto) 1.5 [place] # (Auto) 0.4 Eos # (Auto) 0.3 Baso # (Auto) 0.0 Abs Immat Gran (auto) 0.02 Absolute Neuts (auto) 5.1 Absolute Nucleated RBC 0.000 0.000 Nucleated RBC % (auto) 0.0 0.0 ESR 22 H PT INR aPTT Heparin Protocol D-Dimer High Sensitivty 165 Anion Gap 13 10 L Estim Creat Clear Calc 138.4 115.3 Estimated GFR > 60 > 60 Random Glucose 91 100 Lactic Acid 1.0 Calcium 8.9 9.0 Magnesium 2.1 Total Bilirubin 0.2 Direct Bilirubin < 0.2 AST 26 ALT 30 Alkaline Phosphatase 82 Troponin I High Sens 217.8 H* 400.3 H* D 650.6 H* D C-Reactive Protein 1.38 H B-Natriuretic Peptide 11 Total Protein 7.7 Albumin 4.0 Beta HCG, Quant < 2 Influenza Type A (PCR) NEGATIVE Influenza Type B (PCR) NEGATIVE RSV RNA Qual (PCR) NEGATIVE SARS-CoV-2 RNA (RT-PCR) NEGATIVE S. pyogenes GrpA FAWN Negative 08/27/24 10:21 MCV MCH MCHC RDW Plt Count MPV Immature Gran % (Auto) Neut % (Auto) Lymph % (Auto) [place] % (Auto) Eos % (Auto) Baso % (Auto) Lymph # (Auto) [place] # (Auto) Eos # (Auto) Baso # (Auto) Abs Immat Gran (auto) Absolute Neuts (auto) Absolute Nucleated RBC Nucleated RBC % (auto) ESR PT 13.7 H INR 1.2 H aPTT Heparin Protocol 37.5 L D-Dimer High Sensitivty Anion Gap Estim Creat Clear Calc Estimated GFR Random Glucose Lactic Acid Calcium Magnesium Total Bilirubin Direct Bilirubin AST ALT Alkaline Phosphatase Troponin I High Sens C-Reactive Protein B-Natriuretic Peptide Total Protein Albumin Beta HCG, Quant Influenza Type A (PCR) Influenza Type B (PCR) RSV RNA Qual (PCR) SARS-CoV-2 RNA (RT-PCR) S. pyogenes GrpA FAWN Assessment and Plan (1) NSTEMI (non-ST elevated myocardial infarction): Status: Acute Plan 29 yo F on estrogen therapy admitted for chest pain and found to have elevated HS trop-I consistent with NSTEMI 1. NSTEMI d/w cardiology -- staring asa, statin, bb and iv heparin 2d echo being completed - ddx include myocarditis and SCAD further plans pending results trend trop Full Code Quality Stroke Does the patient have a stroke diagnosis?: No VTE Prior VTE?: No VTE Risk Level:: Medical - moderate - high VTE Device Contraindication: Treatment Not Indicated VTE Drug Contraindication: N/A - Med Ordered
[2024-08-27] MEDS: Atorvastatin Calcium 40 MG TABLET PO (11:42)
[2024-08-27] MEDS: Metoprolol Tartrate 12.5 MG HALFTAB PO ×2 (11:42→15:44)
[2024-08-27 11:44] VITALS: BP 108/65; PULSE 80; RESP 18; TEMP 36.7; O2SAT 95
--- NOTE | 2024-08-27 11:45 | PC.NURSE ---
pt medicated per order
--- NOTE | 2024-08-27 12:04 | MHC.EDTECH ---
@ 12:04 CALL RECEIVED FROM NICHELLE OF [facility] PT PLACEMENT, CHECKING TO SEE IF THE PT IS IN THE ER, STS AWAITING ROOM ASSIGNMENT @ [facility]. T/W WAS NOT AWARE OF THIS.
[2024-08-27 13:12] LABS: Troponin-I High Sensitivity 562.6 ng/L (<3.5-17.0)
--- NOTE | 2024-08-27 13:39 | MHC.CM.PN ---
CM met with Patient at bedside, in the ED. Patient lives in an apartment with her Mother and she is functionally independent. Patient's goal is home/self care via walking vs shuttle, unless a transfer to [facility] is necessary. CM has initiated and will follow for dc planning. PCP is Dr. Ilda Andujar.
--- NOTE | 2024-08-27 14:07 | PC.NURSE ---
BP med Spoke with pharmacy about timing of BP med as first dose was given at 1140 and second dose is scheduled for 1500, per pharmacy suggestion, second dose will be given at approx 4pm.
--- NOTE | 2024-08-27 14:40 | MHC.EDTECH ---
@[phone] CALL RECEIVED FROM FABI OF [facility] PT [place] LINE WITH ROOM ASSIGNMENT MASS [employer], 5 ROOM 30 RN TO RN: [phone] ACCEPTING MD: DR ABRAMS
--- NOTE | 2024-08-27 14:43 | PM.DS ---
DS: Providers Provider Date of Service: 08/27/24 Date of admission: 08/26/24 23:12 Date of discharge: 08/27/24 Primary care physician: Vannesa Roca MD Consults: 08/26/24 23:12 Consult to Cardiology Routine Consulting Provider: [facility] Reason for consultation: NSTEMI Has provider been notified: Yes DS: Diagnosis Discharge Diagnosis (1) NSTEMI (non-ST elevated myocardial infarction): Status: Acute DS: Summary Hospital Course Hospital Course: HPI From admission H&P: This is a 29-year-old trans female on estrogen therapy who presents to the emergency department for evaluation of chest pain. Patient states she had sudden onset of chest pain when she was lying down in bed last night. It was while at rest and she took ibuprofen for it. It radiated to the jaw. Patient had a similar episode on the day of presentation around 17:00 in the evening when she was playing video games. This was midsternal, radiated the jaw and associated with sweating. Worse with ambulation but did not relieve with rest. Patient again took ibuprofen for it in the chest pain lasted until she came to the ER. No associated nausea or vomiting. Does not know of any family history of early CAD. Did have tooth removed due to dental infection on 08/14 and completed 7 day course of Augmentin. No fever, chills, shortness of breath, abdominal pain, symptoms of gastroesophageal reflux disease, rash, changes in urinary or bowel habits. In the emergency department, troponin found to be elevated. Cardiology was consulted who requested admission. Hospital Course: The patient was initiated on Lovenox initially, 1 milligram/kilogram x 1 dose and transitioned to IV heparin after cardiology evaluation on the after admission. Her initial troponins were 217 and peaked at 650, the latest have downtrended to 562. She was also treated with aspirin, statin, beta-blockers in addition to parenteral anticoagulation. She underwent a 2D echo which showed normal LVEF with regional wall motion abnormalities in the RCA territory. Subsequently, Cardiology recommended transfer to [facility] for cardiac catheterization. The patient was accepted and now will be transferred. Patient is also acceptable to transfer. Echo Report: Conclusions: - 1. Normal LV ejection fraction 55-60% with regional wall motion abnormality in RCA territory 2. Normal cardiac valvular Dopplers 3. Normal RV systolic pressure 4. No pericardial effusion Findings Procedure Information Contrast agent, definity, is being given per protocol without apparent complications. Left Ventricle Normal left ventricular size, thickness, and systolic function. The visually estimated ejection fraction is between 55-60%. Diastolic function is normal for age. Wall Motion Rest Echo Findings The basal inferior, mid inferior, apical septum, and mid inferoseptal segments are hypokinetic. All other scored wall segments showed normal motion. Right Ventricle Normal right ventricular cavity size and systolic function. Atria Both atria are normal in size. There is no evidence of interatrial shunt. Aortic Valve Normal aortic valve structure and function. There is no aortic valve stenosis. There is no aortic valve regurgitation. Mitral Valve Normal mitral valve structure and function. There is trace mitral valve regurgitation. There is no mitral valve stenosis. Pulmonic Valve The pulmonic valve is likely normal. Tricuspid Valve Normal tricuspid valve structure. There is trace tricuspid valve regurgitation. The right ventricular systolic pressure is normal. The right ventricular systolic pressure is 10 mmHg. Normal right atrial pressure. There is no evidence of pulmonary hypertension. Great Vessels All visible segments of the aorta are normal in size. The pulmonary artery was not well visualized. There is no dilatation of the ascending aorta measuring 2.60 cm. There is no evidence of plaque in the aorta. Venous The inferior vena cava is normal in size and collapses greater than 50% with inspiration. Pericardium/Pleural There is no evidence of pericardial effusion. Prior Study Comparison No prior study available for comparison. Measurements 2D Linear Measurements IVSd: 1.01 0.6-0.9/0.6-1.0 cm LVIDd: 4.52 3.9-5.3/4.2-5.9 cm LVIDd Index: 2.23 2.4-3.2/2.2-3.1 cm/m2 LVIDs: 2.88 2.0-3.6 cm LVPWd: 0.90 0.7-1.1 cm LA Diam: 3.10 2.7-3.8/3.0-4.0 cm LAIDs Index: 1.53 1.5-2.3 cm/m2 LV Mass: 180.96 67-162/88-224 g LV Mass Index: 89.14 43-95/49-115 g/m2 LVOT Diam: 2.10 3.0+(-)1.3 cm 2D Systolic Function EF 4C: 56.90 >55% EF 2C: 55.40 >55% EF BiP: 56.00 >55% Mitral Valve MV Pk E: 0.90 MV PK A: 0.67 MV Decel Time: 208.00 E/A: 1.40 E'Lateral: 17.10 E'Medial: 9.14 E/E' Med: 9.90 E/E' Lat: 5.30 PHT: 61.00 MVA PHT: 3.61 Decel Wheeler: 4.35 Aortic Valve AoV Pk Jonel: 1.07 AoV Mn Jonel: 0.80 AoV VTI: 0.22 AoV Pk Grad: 5.00 Aov Mn Grad: 3.00 MEE Cont.VTI: 3.08 LVOT LVOT Pk Jonel: 0.98 LVOT Mn Jonel: 0.70 LVOT VTI: 0.20 LVOT Pk Grad: 4.00 LVOT Mn Grad: 2.00 LVOT Diam: 2.10 LVOT Area: 3.46 Diastolic Function MV Pk E: 0.90 MV Pk A: 0.67 E/A: 1.40 E'Medial: 9.14 E/E' Med: 9.90 E' Laterial: 17.10 E/E' Lat: 5.30 Right Ventricle TAPSE (mm): 21.40 TVS' Jonel: 12.20 Tricuspid Valve TR Pk Jonel: 1.36 TR Pk Grad: 7.00 RA Press: 3.00 RVSP: 10.00 Great Vessels Aorta Sinus of Valsalva: 3.10 2.0-3.5 cm Ao Asc: 2.60 2.1-3.4 cm Pulmonary Valve PV Pk Jonel: 0.96 Peak PV Grad: 4.00 Updated in Other Vendor System with Status of Final Pankaj Lopez MD electronically signed on 08/27/2024 11:40:10 AM with status of Final Time Attestation Discharge Coordination Time (in mins): 35 Quality: Safe Use of Opioids Does Pt have an Active Cancer Diagnosis on the Problem List?: No Quality: Stroke Does the patient have a stroke diagnosis?: No Physical Exam Vital Signs: Vital Signs: Last Vital Signs Temp 98.1 F 08/27/24 11:44 Pulse 80 08/27/24 11:44 Resp 18 08/27/24 11:44 BP 108/65 08/27/24 11:44 Pulse Ox 95 08/27/24 11:44 O2 Del Method Room Air 08/27/24 11:44 BMI result Body Mass Index 30.9 Const: Other: General - no acute distress, appears comfortable Cardiovascular - regular rate and rhythm, S1-S2 Lungs - normal respiratory effort, clear to auscultation bilaterally, no wheezing Abdomen - soft, nontender, no rebound or guarding Extremities - no edema bilaterally Neuro - awake and alert, no focal deficits DS: Data Data Completed and Pending Labs on day of discharge: Laboratory Results - last 24 hr 08/26/24 08/26/24 08/27/24 19:26 21:17 05:47 WBC 7.4 9.4 RBC 4.85 4.89 Hgb 13.6 13.9 Hct 40.5 40.9 MCV 83.5 83.6 MCH 28.0 28.4 MCHC 33.6 34.0 RDW 12.5 12.6 Plt Count 348 341 MPV 9.1 L 9.1 L Immature Gran % (Auto) 0.3 Neut % (Auto) 69.1 Lymph % (Auto) 20.7 [place] % (Auto) 5.2 Eos % (Auto) 4.2 H Baso % (Auto) 0.5 Lymph # (Auto) 1.5 [place] # (Auto) 0.4 Eos # (Auto) 0.3 Baso # (Auto) 0.0 Abs Immat Gran (auto) 0.02 Absolute Neuts (auto) 5.1 Absolute Nucleated RBC 0.000 0.000 Nucleated RBC % (auto) 0.0 0.0 ESR 22 H PT INR aPTT Heparin Protocol D-Dimer High Sensitivty 165 Sodium 138 138 Potassium 4.9 4.2 Chloride 105 104 Carbon Dioxide 25 28 Anion Gap 13 10 L BUN 12 11 Creatinine 0.70 0.84 Estim Creat Clear Calc 138.4 115.3 Estimated GFR > 60 > 60 Random Glucose 91 100 Lactic Acid 1.0 Calcium 8.9 9.0 Magnesium 2.1 Total Bilirubin 0.2 Direct Bilirubin < 0.2 AST 26 ALT 30 Alkaline Phosphatase 82 Troponin I High Sens 217.8 H* 400.3 H* D 650.6 H* D C-Reactive Protein 1.38 H B-Natriuretic Peptide 11 Total Protein 7.7 Albumin 4.0 Beta HCG, Quant < 2 Influenza Type A (PCR) NEGATIVE Influenza Type B (PCR) NEGATIVE RSV RNA Qual (PCR) NEGATIVE SARS-CoV-2 RNA (RT-PCR) NEGATIVE S. pyogenes GrpA FAWN Negative 08/27/24 08/27/24 10:21 12:20 WBC RBC Hgb Hct MCV MCH MCHC RDW Plt Count MPV Immature Gran % (Auto) Neut % (Auto) Lymph % (Auto) [place] % (Auto) Eos % (Auto) Baso % (Auto) Lymph # (Auto) [place] # (Auto) Eos # (Auto) Baso # (Auto) Abs Immat Gran (auto) Absolute Neuts (auto) Absolute Nucleated RBC Nucleated RBC % (auto) ESR PT 13.7 H INR 1.2 H aPTT Heparin Protocol 37.5 L D-Dimer High Sensitivty Sodium Potassium Chloride Carbon Dioxide Anion Gap BUN Creatinine Estim Creat Clear Calc Estimated GFR Random Glucose Lactic Acid Calcium Magnesium Total Bilirubin Direct Bilirubin AST ALT Alkaline Phosphatase Troponin I High Sens 562.6 H* C-Reactive Protein B-Natriuretic Peptide Total Protein Albumin Beta HCG, Quant Influenza Type A (PCR) Influenza Type B (PCR) RSV RNA Qual (PCR) SARS-CoV-2 RNA (RT-PCR) S. pyogenes GrpA FAWN Discharge Plan Discharge Anticipated Discharge Date/Time: 08/27/24 14:41 Patient Disposition: Xfer Acute Care Hospital Discharge Diagnosis: NSTEMI Referrals: Vannesa Roca MD [Primary Care Provider] - 1 Week Discharge Medications: New heparin (porcine) 5,000 unit/mL Solution 3,600 unit IVPUSH PROTOCOL BOLUS PRN (Reason: 40 Unit/Kg - Heparin Protocol) Qty: 1 0RF heparin (porcine) 5,000 unit/mL Solution 7,200 unit IVPUSH PROTOCOL BOLUS PRN (Reason: 80 Unit/Kg - Heparin Protocol) Qty: 1 0RF aspirin 81 mg Tablet,Chewable 81 mg PO DAILY Qty: 1 0RF metoprolol tartrate 25 mg tablet 12.5 mg PO TID Qty: 1 0RF heparin(porcine) in 0.45% NaCl 25,000 unit/250 mL Parenteral Solution 25,000 unit continuous IV infusion .Q0M Qty: 1 0RF metoprolol tartrate 25 mg tablet 12.5 mg PO TID Qty: 1 0RF atorvastatin 40 mg Tablet 40 mg PO DAILY Qty: 1 0RF Continued albuterol sulfate [Ventolin HFA] 90 mcg/actuation HFA aerosol inhaler 2 puff INHALATION Q4H PRN (Reason: wheezing) acetaminophen 325 mg Tablet 325 mg PO DAILY PRN (Reason: Pain) Depo-Estradiol 5 mg/mL oil 2 mg IM QWEEK ibuprofen 400 mg tablet 400 mg PO DAILY PRN (Reason: Pain) Held spironolactone 50 mg tablet 50 mg PO DAILY Hold Instructions: Resume on 08/28/24. pending eval at [facility] Diet: Advance to usual diet Activity on Discharge: As tolerated Stand Alone Forms: Patient Portal Discharge page Print Language: Malay Care Plan Goals: Transfer to [facility] for further cardiac evaluation Health Concerns: NSTEMI Plan of Treatment: transfer to [facility] Assessment: see d/c summary
--- NOTE | 2024-08-27 15:01 | PC.NURSE ---
Report called to Elisabet on MM5
[2024-08-27 15:42] VITALS: BP 112/62; PULSE 79; RESP 16; TEMP 36.9; O2SAT 98
--- NOTE | 2024-08-27 15:45 | PC.NURSE ---
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
[2024-08-27 16:59] VITALS: BP 114/63; PULSE 76; RESP 16; TEMP 36.8; O2SAT 98
== END 2024-08-27 16:56 | disposition short-term general hospital (02) | DRG 190 ==
LOC: HO.ED 23:13 → HO.EDOVER 08-27 00:37
PROVIDERS: Physician Assistant Medical; Admitting Provider Student in an Organized Health Care Education/Training Program; Emergency Provider Emergency Medicine; PCP Internal Medicine; Visit Provider Family Medicine
DX: I21.4 Non-ST elevation (NSTEMI) myocardial infarction (principal); F64.0 Transsexualism; Z79.82 Long term (current) use of aspirin; Z79.899 Other long term (current) drug therapy
CPT/HCPCS: 0241U; 36415; 71046; 71275; 80048; 80076; 83605; 83735; 83880; 84484; 84702; 85025; 85027; 85379; 85610; 85652; 85730; 86140; 87040; 87651; 93005; 93306; 99285; J1644; J1650; Q9957; Q9967

== ENCOUNTER → 2024-08-26 17:57 | Outpatient (BNV) | payer MEDICAID, SELFPAY | PROVIDERS: Admitting Provider Student in an Organized Health Care Education/Training Program; Emergency Provider Emergency Medicine; PCP Internal Medicine; Visit Provider Internal Medicine Cardiovascular Disease | DX: R94.31 Abnormal electrocardiogram [ECG] [EKG] (principal) | CPT/HCPCS: 93010 ==

== ENCOUNTER → 2024-08-26 18:39 | Outpatient (BNV) | payer MEDICAID, SELFPAY | PROVIDERS: PCP Internal Medicine; Visit Provider Radiology Diagnostic Radiology | DX: R07.9 Chest pain, unspecified (principal); R00.0 Tachycardia, unspecified | CPT/HCPCS: 71046; 71275 ==

== ENCOUNTER → 2024-08-26 21:24 | Outpatient (BNV) | payer MEDICAID, SELFPAY | PROVIDERS: Emergency Provider Emergency Medicine; PCP Internal Medicine; Visit Provider Student in an Organized Health Care Education/Training Program | DX: R07.9 Chest pain, unspecified (principal); R79.89 Other specified abnormal findings of blood chemistry; I21.4 Non-ST elevation (NSTEMI) myocardial infarction | CPT/HCPCS: 99222; 99239; 99499 ==

== ENCOUNTER 2024-08-26 23:12 | Outpatient (BNV) | payer MEDICAID, SELFPAY | END 2024-08-27 07:00 | PROVIDERS: Admitting Provider Student in an Organized Health Care Education/Training Program; Emergency Provider Emergency Medicine; PCP Internal Medicine; Visit Provider Internal Medicine Cardiovascular Disease | DX: I42.8 Other cardiomyopathies (principal) | CPT/HCPCS: 93306 ==

== ENCOUNTER → 2024-08-26 23:12 | Outpatient (BNV) | payer MEDICAID, SELFPAY | PROVIDERS: Admitting Provider Student in an Organized Health Care Education/Training Program; Emergency Provider Emergency Medicine; PCP Internal Medicine; Visit Provider Internal Medicine Cardiovascular Disease | DX: I21.4 Non-ST elevation (NSTEMI) myocardial infarction (principal) | CPT/HCPCS: 99222 ==

== ENCOUNTER → 2024-08-29 23:59 | Outpatient (BNV) | payer MEDICAID, SELFPAY | PROVIDERS: PCP Internal Medicine; Visit Provider Internal Medicine Cardiovascular Disease | DX: I21.4 Non-ST elevation (NSTEMI) myocardial infarction (principal) | CPT/HCPCS: 93458; 99152 ==

== ENCOUNTER 2024-09-12 13:44 | Emergency (ER) | payer MEDICAID, SELFPAY ==
--- NOTE | ~2024-09-12 | XR_ITS ---
EXAMINATION: XR CHEST CLINICAL INFORMATION: sob COMPARISON: August 26, 2024. TECHNIQUE: Frontal view of the chest was obtained. FINDINGS: No consolidation, pleural effusion or pneumothorax. Cardiomediastinal silhouette is normal in size. Osseous structures are intact. XR/XR chest 1V IMPRESSION: No acute airspace disease. Electronically signed by: Mehdi Cheatham MD 09/12/2024 02:19 PM [facility]
[2024-09-12 13:49] VITALS: BP 125/85; PULSE 122; RESP 24; TEMP 36.6; O2SAT 98; BMI 29.8
--- NOTE | 2024-09-12 14:02 | ECG_ITS ---
Test Reason : SOB Blood Pressure : */* mmHG Vent. Rate : 109 BPM Atrial Rate : 109 BPM P-R Int : 144 ms QRS Dur : 146 ms QT Int : 366 ms P-R-T Axes : 48 23 14 degrees QTcB Int : 492 ms Sinus tachycardia Right bundle branch block Abnormal ECG When compared with ECG of 26-Aug-2024 18:03, No significant change was found Referred By: Criss Adame Electronically Signed By: Wilberto Smith
--- NOTE | 2024-09-12 14:08 | ED_ITS ---
HPI - SOB/Dyspnea General Chief Complaint: Dyspnea Stated Complaint: diff breathing Time Seen by Provider: 09/12/24 14:02 Source: patient Mode of arrival: ambulatory Limitations: no limitations History of Present Illness ED Provider: Gabriel Adame PA-C HPI Narrative: 29 yo transgender male to female recently off of estrogen therapy due to NSTEMI in August who presents to the ER for evaluation of SOB and increased WOB and SOB that started yesterday after she had 3 wisdom teeth removed. She was sent home with amoxicillin and prn oxycodone. She states she woke up today having to use more effort to breathe. She has had a slight cough and a sore throat with pain upon swallowing. she is able to eat and drink after the extraction. She reports subjective fevers and chills. No abdominal pain, N/V/D. She reports the swelling in her face is getting better with ice. She has no chest pain. She denies LE swelling or pain. She reports her coronary arteries were normal when she went there for catheterization. MD elicited complaint: shortness of breath Pertinent past history: asthma Onset (ago): day(s) (1) Context: recent illness and trauma/injury Timing: progressively worsening Severity: moderate Exacerbating factors: nothing Relieving factors: nothing Known history of: asthma Associated symptoms: denies other symptoms Treatment prior to arrival: none Related Data Home oxygen amount: none Home Medications ?Medication ?Instructions ?Recorded ?Confirmed acetaminophen 325 mg tablet 325 mg PO DAILY PRN Pain 08/27/24 08/27/24 albuterol sulfate 90 mcg/actuation 2 puff inhalation Q4H PRN wheezing 08/27/24 08/27/24 aerosol inhaler (Ventolin HFA) estradiol cypionate 5 mg/mL 2 mg IM QWEEK 08/27/24 08/27/24 intramuscular oil (Depo-Estradiol) ibuprofen 400 mg tablet 400 mg PO DAILY PRN Pain 08/27/24 08/27/24 spironolactone 50 mg tablet 50 mg PO DAILY 08/27/24 08/27/24 Previous Rx's ?Medication ?Instructions ?Recorded aspirin 81 mg chewable tablet 81 mg PO DAILY #1 tab 08/27/24 atorvastatin 40 mg tablet 40 mg PO DAILY #1 tab 08/27/24 heparin (porcine) 25,000 unit/250 25,000 unit (250 mL) continuous IV 08/27/24 mL in 0.45 % sodium chloride IV infusion .Q0M #1 mL soln heparin (porcine) 5,000 unit/mL 3,600 unit (0.72 mL) IVPUSH 08/27/24 injection solution PROTOCOL BOLUS PRN 40 Unit/Kg - Heparin Protocol #1 mL heparin (porcine) 5,000 unit/mL 7,200 unit (1.44 mL) IVPUSH 08/27/24 injection solution PROTOCOL BOLUS PRN 80 Unit/Kg - Heparin Protocol #1 mL metoprolol tartrate 25 mg tablet 12.5 mg (1/2 x 25 mg) PO TID #1 tab 08/27/24 Allergies Allergy/AdvReac Type Severity Reaction Status Date / Time No Known Allergies Allergy Verified 09/12/24 13:52 Review of Systems 2 Review of Systems: Yes all other systems are reviewed and are negative [facility] Past Medical History Medical History [id number] transgender person Social History Social History Household Members: Other Household Members Other:: mother Housing: Apartment Do you presently have visiting nurse or other home services: No Patient Tobacco Use Status: Never used Tobacco Smoked in Last 30 Days: No Use of substances other than those prescribed or required for medical reasons: No Advance Directives: No Advance Directives Information Provided: Yes Do you have a plan to hurt others: No Plan Patient : No service: No Physical Exam 2 Vital Signs: Vital Signs: Last Vital Signs Temp 99.4 F 09/12/24 18:13 Pulse 101 H 09/12/24 18:13 Resp 20 09/12/24 18:13 BP 112/65 09/12/24 18:13 Pulse Ox 97 09/12/24 18:13 O2 Del Method Room Air 09/12/24 18:13 BMI result Body Mass Index 29.8 Appearance: Alert. Oriented X3. No acute distress. Head/face: normocephalic, moderate facial swelling bilaterally Eyes: Pupils equal, round and reactive to light. ENT: Pharynx with moist mucus membranes, limited ROM of the jaw/mandible. unable to visualize the posterior oropharynx Neck: tender and swollen mandible bilaterally. no anterior next swelling. CVS: tachycardic, rapid rate 120, no murmur. Pulses normal Respiratory: No respiratory distress. Breath sounds normal, no wheezing or rales. Abdomen: Soft and nontender. +BS x4 Skin: Skin warm and dry. Normal skin color. Normal skin turgor. No rashes. Extremities: No lower extremity edema. No joint swelling. negative ritchie's sign Neuro/psych: Oriented X 3. No motor deficit. No sensory deficit. CN II-XII intact. Normal speech and cognition. Medications Administered Discontinued Medications Generic Name Dose Route Start Last Admin Trade Name Yaya PRN Reason Stop Dose Admin Dexamethasone Sodium Phosphate 8 mg 09/12/24 15:41 09/12/24 15:58 Dexamethasone Sod Phosphate 4 Mg/Ml Vial IVPUSH 09/12/24 15:42 8 mg ONCE ONE Administration Sodium Chloride 1,000 mls @ 999 mls/hr 09/12/24 14:45 09/12/24 15:59 Ns IV 09/12/24 15:45 999 mls/hr .Q1H1M BRANDEE Administration Ketorolac Tromethamine 30 mg 09/12/24 15:41 09/12/24 15:58 Ketorolac Tromethamine 30 Mg/Ml Vial IVPUSH 09/12/24 15:42 30 mg ONCE ONE Administration Lidocaine HCl 15 ml 09/12/24 15:41 09/12/24 15:59 Lidocaine Hcl Viscous 2 % 15 Ml Solution MUCOUS MEM 09/12/24 15:42 15 ml ONCE ONE Administration Medical Decision Making Medical Decision Making MDM Narrative: 29 yo transgender male to female no longer on hormonal therapy due to recent NSTEMI (question viral in etiology per her report) who presents to the ER for evaluation of SOB that started yesterday and got worse today. had wisdom teeth extracted yesterday and has been on amoxicillin and oxycodone. tachycardic 130 with increased WOB on arrival, anxious. SPO2 100% with clear lungs. EKG is unchanged from prior. no chest pain. lungs clear so unlikely asthma exacerbation. she has had some cough and subjective fever/chills so could be viral etiology. labs showing negative troponin, no leukocytosis. patient given IVF. toradol for pain along w/ decadron for swelling. she is feeling much better. no longer SOB. admits to anxiety attack yesterday w/ crying and feeling out of control. could have contributed today as well. HR improved, WOB resolved. comfortable with discharge home with outpatient follow up. Differential Diagnosis Differential Diagnoses: The differential diagnosis associated with the presentation includes strep, covid, flu, rsv, other viral syndrome, bronchitis, pneumonia, PE, ACS Admission/Observation Consideration of admission/observation: Escalation of care including admission/observation considered Lab Data [facility] Lab Attestation statement: I reviewed the patient's lab results. mild leukocytosis, negative troponin 09/12/24 14:41 09/12/24 14:41 Labs: Lab Results 09/12/24 Range/Units 14:41 WBC 11.6 H (4.8-10.8) X10*3/uL RBC 4.89 (4.20-5.50) X10*6/uL Hgb 13.6 (12.0-16.0) g/dl Hct 39.5 (37.0-47.0) % MCV 80.8 (80.0-98.0) fL MCH 27.8 (27.0-33.0) pg MCHC 34.4 (31.0-35.0) g/dl RDW 12.9 (11.0-16.0) % Plt Count 290 (160-400) X10*3/uL MPV 9.0 L (9.4-12.3) fL Immature Gran % (Auto) 0.4 (0.0-0.4) % Neut % (Auto) 84.5 H (45-73) % Lymph % (Auto) 9.4 L (20-40) % [place] % (Auto) 4.8 (2-11) % Eos % (Auto) 0.7 (0-4) % Baso % (Auto) 0.2 (0-2) % Lymph # (Auto) 1.1 L (1.2-4.9) X10*3/uL [place] # (Auto) 0.6 (0.1-1.2) X10*3/uL Eos # (Auto) 0.1 (0.0-0.4) X10*3/uL Baso # (Auto) 0.0 (0.0-0.2) X10*3/uL Abs Immat Gran (auto) 0.05 H (0.00-0.03) X10*3/uL Absolute Neuts (auto) 9.8 H (2.0-8.3) x10*3/uL Absolute Nucleated RBC 0.000 (0.0-0.012) X10*3/uL Nucleated RBC % (auto) 0.0 (0.0-0.2) /100WBC PT 19.2 H D (10.9-12.4) SEC INR 1.6 H (0.9-1.1) APTT 24.8 L (26.0-36.8) SEC Sodium 134 L (135-145) mmol/L Potassium 3.4 (3.3-5.1) mmol/L Chloride 105 (96-108) mmol/L Carbon Dioxide 20 L (22-29) mmol/L Anion Gap 12 (12-20) BUN 9 (9-16) mg/dL Creatinine 0.78 (0.5-1.4) mg/dL Estim Creat Clear Calc 119.9 Estimated GFR > 60 Random Glucose 136 H (60-115) mg/dL Calcium 9.4 (8.4-10.2) mg/dL Magnesium 1.7 (1.6-2.6) mg/dL Total Bilirubin 1.3 H (0.0-1.0) mg/dL Direct Bilirubin 0.5 (0.0-0.5) mg/dL AST 17 (5-31) U/L ALT 38 H (0-31) U/L Alkaline Phosphatase 85 (39-117) U/L Troponin I High Sens < 2.7 D (<3.5-17.0) ng/L Total Protein 7.9 (6.5-8.0) g/dL Albumin 4.4 (3.5-5.0) g/dL Influenza Type A (PCR) NEGATIVE (Negative) Influenza Type B (PCR) NEGATIVE (Negative) RSV RNA Qual (PCR) NEGATIVE (Negative) SARS-CoV-2 RNA (RT-PCR) NEGATIVE (Negative) Independent Interpretation I performed an independent interpretation of an: EKG and Plain X-Ray Interpretation: ekg with sinus tachycardia, HR 109, RBBB which is unchanged from prior CXR clear with no focal infiltrate or effusion Radiology Impression Discussion of test interpretation with radiology: I have reviewed the radiologist's reading. Radiologist Impression: XR/XR chest 1V IMPRESSION: No acute airspace disease. Independent Historian Clinical information obtained from an independent historian. History obtained from or confirmed by: Parent External Record Review External record reviewed: Inpatient record Tests considered The following testing was considered but not selected: CTA considered Prescription Management I considered prescription management with: Pain Medication and Antibiotic Chronic Conditions Patient?s care impacted by: Other (NSTEMI) Critical Care Time Critical Care Time Critical Care Time: No Discharge Plan Discharge Clinical Impression: Shortness of breath Patient Disposition: Home, Self-Care Instructions: Shortness of Breath (ED) Additional Instructions: Your workup today was reassuring Your chest x-ray was normal Your EKG was unchanged from prior You tested negative for COVID, Flu and RSV You were given IV fluids and medications to help pain and swelling associated with your teeth extractions Continue your previously prescribed antibiotic and pain medication Take motrin and tylenol as needed for mild to moderate pain Drink plenty of fluids and stay hydrated Follow up with your dentist/oral surgeon next week Follow up with your PCP and Demi Chef If you develop new or worsening symptoms call 911 or come back to the ER for further evaluation. Prescriptions: No Action albuterol sulfate [Ventolin HFA] 90 mcg/actuation HFA aerosol inhaler 2 puff INHALATION Q4H PRN (Reason: wheezing) spironolactone 50 mg tablet 50 mg PO DAILY acetaminophen 325 mg Tablet 325 mg PO DAILY PRN (Reason: Pain) Depo-Estradiol 5 mg/mL oil 2 mg IM QWEEK ibuprofen 400 mg tablet 400 mg PO DAILY PRN (Reason: Pain) atorvastatin 40 mg Tablet 40 mg PO DAILY Qty: 1 0RF heparin (porcine) 5,000 unit/mL Solution 3,600 unit IVPUSH PROTOCOL BOLUS PRN (Reason: 40 Unit/Kg - Heparin Protocol) Qty: 1 0RF heparin (porcine) 5,000 unit/mL Solution 7,200 unit IVPUSH PROTOCOL BOLUS PRN (Reason: 80 Unit/Kg - Heparin Protocol) Qty: 1 0RF heparin(porcine) in 0.45% NaCl 25,000 unit/250 mL Parenteral Solution 25,000 unit continuous IV infusion .Q0M Qty: 1 0RF metoprolol tartrate 25 mg tablet 12.5 mg PO TID Qty: 1 0RF aspirin 81 mg Tablet,Chewable 81 mg PO DAILY Qty: 1 0RF Referrals: Vannesa Roca MD [Primary Care Provider] - Interventions: ED Discharge Assessment Last Done: 09/12/24 18:13 Print Language: Swedish
[2024-09-12 14:18] VITALS: BP 125/87; PULSE 115; RESP 16; O2SAT 99
--- OUTSIDE RECORDS SUMMARY | 2024-09-12 14:43 | XMS_ITS | Encounter Summary ---
Author Organization [employer] Address [address] [place] [address] Care Team Providers Care Fixed Interest Dealer Name Role Phone Ilda Andujar MD Primary Care Provider [phone] Pankaj Lopez MD Unavailable Reason for Visit * Reason Comments Transition Of Care (Tcm) HDF unscheduled Encounter Details Date Type Department Care Team (Late st Contact Info) Description 08/28/2024 Patient Outreach [facility] [address] [place] [address] Ilda Andujar MD [address], [place] [phone] Transition Of Care (Tcm) (HDF unscheduled) Social History Tobacco Use Types Packs/Day Years Used Date Smoking Tobacco: Never Passive Smoke Exposure: Never Smokeless Tobacco: Never Alcohol Use Standard Drinks/Week Comments Yes 0 (1 standard drink = 0.6 oz pur e alcohol) social Alcohol Answer Date Recorded How often do you have a drink containing alcohol ? 1 06/07/2024 Average Number of Drinks Not on file 024 Frequency of Binge Drinking Not on file 08/2023 Depression Answer Date Recorded Patient Health Questionnaire-9 Score 13 04/24/2024 Patient Health Questionnaire-9 Score 13 04/24/2024 Last PHQ-9: Questionnaire Data Not on file 0 04/24/2024 Housing Stability Answer Date Recorded What is your housing situation today? I have leona valencia 05/30/[address] you li ve. Do you have problems with any of the following? None of the above 05/30/2023 Food Insecurity Answer Date Recorded Within the past 12 months, y ou worried that your food would run out before you got money to buy more: Never True 05/30/2023 Within the past 12 months,th e food you bought just didn't last and you didn't have enough money to get more: Never True Transportation Answer Date Recorded In the past 12 months, has l ack of transportation kept you from medical appts, meetings, work or from getting things needed for daily living? No 05/30/2023 Utilities Answer Date Recorded In the past 12 months, has t he electric, gas, oil or water company threatened to shut off services in your home? No 05/30/2023 Depression Answer Date Recorded Patient Health Questionnaire-2 Score 6 04/24/2024 Sex and Gender Information Value Date Recorded Sex Assigned at Male 06/06/2022 10:14 AM EDT Legal Sex Female 10:14 AM EDT Gender Identity Female 10/16/2023 10:06 AM EDT Sexual Orientation Choose not to disclose 2021 10:14 AM EDT documented as of this encounter Miscellaneous Notes * Significant Event - Mary Cheung - 08/28/2024 8:24 AM EST 08/28/24 0823 Hospital Discharges and Admission for [facility] Type of Visit Hospital Admission Date of Admission/Visit 08/26/24 Date of Discharge 08/27/24 Facility [facility] Diagnosis chest pain Disposition Admitted Follow-Up Actions Follow-Up Needed Provider appointment Follow-Up Outcome Spoke to Patient Initial Contact Date 08/28/24 LC Hernandez placed outbound call to patient for HDF outreach. After appearing in medical collective list as seen at [facility] for chest pain CC placing call to offer patient with an HDF appointment with provider. Patient's name and were confirmed. Patient was educated on the importance of following up with provider following an inpatient admission. Patient reports I am currently hospitalized at [facility] now for cardiac concerns and will be having a surgical procedure related to the heart tomorrow Patient educated on extended clinic hours on Mondays and Wednesdays, and Walk-In Urgent Care Located in [facility]. Patient provided with after-hours line for [facility], , which offer night time triage service and option to transfer to programmable logic controller assembler provider if needed. [facility] discharge summary has been scanned into patient chart for review. CC will monitor medical collective list for discharge of [facility] to follow up with patient. documented in this encounter Plan of Treatment Upcoming Encounters Date Type Department Care Team (Late st Contact Info) Description 09/18/2024 9:00 AM EST Office Visit [facility] [address] [place] [address] Ilda Andujar MD [address] [place] [phone] 10/03/2024 2:00 PM EST Office Visit [facility] [address] [place] [phone] Bre Van documented as of this encounter Visit Diagnoses Not on filedocumented in this encounter Additional Health Concerns Assessment Noted Time PHQ-9 Depression Total Score: 13 04/24/ 024 3:33 PM EDT documented as of this encounter Care Teams Fixed Interest Dealer Relationship Specialty Start Date End Date Ilda Andujar MD [address] [place] [phone] PCP - General Family Medicine 07/20/17 Pankaj Lopez MD [address] [place] [address] [address] [place] [address] Cardiology 08/27/24 documented as of this encounter
--- OUTSIDE RECORDS SUMMARY | 2024-09-12 14:43 | XMS_ITS | Clinical Summary ---
Author Organization [employer] Address [address] [place] [address] Care Team Providers Care Technologist Development Name Role Phone Ilda Andujar MD Primary Care Provider [phone] Pankaj Lopez MD Unavailable Allergies No known active allergies Medications * This document contains information received from the source organization and may not represent a complete record from that organization. spironolactone (Aldactone) 50 MG tabletIndicatio ns:Gender dysphoria Take 1 tablet (50 mg) by mouth Once per day. 30 tablet 11 06/07/20 24 025 Active albuterol 108 (90 Base) MCG/ACT inhalerIndicati ons:Mild intermittent asthma without complication Inhale 2 puffs every 4 (four) hours if needed for wheezing. 18 g 06/25/20 24 025 Active aspirin 81 MG EC tabletIndicatio ns:NSTEMI (non-ST elevated myocardial infarction) (CMS/HCC) Take 81 mg by mouth Once per day. 08/27/19 25 Active atorvastatin (Lipitor) 40 MG tabletIndicatio ns:NSTEMI (non-ST elevated myocardial infarction) (CMS/HCC) Take 40 mg by mouth Once per day. 08/27/19 25 Active colchicine 0.6 MG tabletIndicatio ns:NSTEMI (non-ST elevated myocardial infarction) (CMS/HCC) Take 0.6 mg by mouth 2 times daily. 08/30/19 25 Active amoxicillin (Amoxil) 500 MG capsuleIndicati ons:History of third molar tooth extraction, unspecified edentulism class Take 1 capsule (500 mg) by mouth every 8 (eight) hours for 7 days. 21 capsule 09/11/19 25 025 Active ibuprofen 600 MG tabletIndicatio ns:History of third molar tooth extraction, unspecified edentulism class Take 1 tablet (600 mg) by mouth every 6 (six) hours if needed for mild pain for up to 10 days. 15 tablet 09/11/19 25 025 Active oxyCODONE (Roxicodone) 5 MG immediate release tabletIndicatio ns:History of third molar tooth extraction, unspecified edentulism class Take 1 tablet (5 mg) by mouth every 6 (six) hours if needed for severe pain for up to 5 days. 15 tablet 09/11/19 25 025 Active Sod Fluoride-Potass ium Nitrate 1.1-5 % paste [place] teeth for 2 minutes, morning and night. Spit, do not rinse. Do not eat or drink anything for 30 minutes following brushing. 112 g 3 04/04/20 24 025 Discontinued(Me d list cleanup (will not trigger notification to Pharmacy)) Needle, Disp, (BD ECLIPSE) 25G X 1-2 miscIndications :Gender dysphoria 1 each every 14 (fourteen) days. 24 each 3 06/07/20 24 025 Discontinued(Me d list cleanup (will not trigger notification to Pharmacy)) Syringe, Disposable, (Syringe 2-3 ML) 3 ML miscIndications :Gender dysphoria 1 each every 14 (fourteen) days. 24 each 2 06/07/20 24 025 Discontinued(Me d list cleanup (will not trigger notification to Pharmacy)) estradiol cypionate (Depo-Estradiol ) 5 MG/ML injectionIndica tions:Gender dysphoria Inject 0.4 mL (2 mg) into the muscle every 7 (seven) days. 1.6 mL 1 06/07/20 24 025 Discontinued(Di scontinued by another clinician) amoxicillin-cla vulanate (Augmentin) 875-125 MG tablet Take 1 tablet by mouth 2 times daily for 7 days. 14 tablet 08/09/19 25 025 Discontinued(Me d list cleanup (will not trigger notification to Pharmacy)) ibuprofen 400 MG tablet Take 1 tablet (400 mg) by mouth every 6 (six) hours if needed for mild pain for up to 15 doses. 15 tablet 08/09/19 25 025 Discontinued(Me d list cleanup (will not trigger notification to Pharmacy)) ibuprofen 600 MG tabletIndicatio ns:History of third molar tooth extraction, unspecified edentulism class Take 1 tablet (600 mg) by mouth every 6 (six) hours if needed for mild pain for up to 10 days. 15 tablet 08/14/19 25 025 spironolactone (Aldactone) 50 MG tabletIndicatio ns:Gender dysphoria Take 50 mg by mouth 2 times daily. 08/27/19 025 Discontinued(Me d list cleanup (will not trigger notification to Pharmacy)) Hospital, Clinic, or Other Facility Administered Medication Ordered Dose Route Frequency Start Date End Date Status estradiol cypionate (Depo-estradiol) injection 2 mgIndications:Gender dysphoria 2 mg IM Weekly 06/17/2024 09/09/2024 Discontinued Active Problems Problem Noted Date Diagnosed Date Class 1 obesity due to exces s calories without serious comorbidity with body mass index (BMI) of 31.0 to 31.9 in adult 09/09/2024 Exercise counseling 09/09/2024 Dietary counseling 09/09/2024 HTN (hypertension) 09/09/2024 Hyperlipidemia 09/09/2024 Otitis externa 09/09/2024 NSTEMI (non-ST elevated myocardial infarction) 0 08/27/2024 Overview (09/09/2024): NSTEMI 08/27/24, Per seal skinner Dr. Lopez, Patient without any significant risk factors currently undergoing gender transition with hormonal therapy presents with acute onset chest pain with elevated troponins consistent with myocardial injury consistent with NSTEMI. Possible etiologies include SCAD, plaque rupture and erosion much less likely although possible. Other possibility includes myocarditis given her recent ear infection although this was more than a month ago. I would currently treat her as an NSTEMI with IVheparin, aspirins, statins and metoprolol therapy. Found to have wall motion abnormalities in the RCA territory on echocardiogram Transferred to [facility]. -in [facility] troponin peaked at 73. EKG without ST elevation, ESR and CRP slightly elevated. -s/p cardia cath with Dr. Smith 08/29/24 minimal disease in the LAD unsure if this is related to spasm. No obstructive disease noted to explain troponin elevation. -aggressive primary risk factor modification if BP elevated favor calcium channel blockers. Consider work up with cardiac MRI. -Cardiology though symptoms most likely secondary from myopericardidits. -continue ASA, atrovastatin 40 and colchicine 0.6mg bid for x months (started 08/30/24 -follow up cardiology Assessment & Plan (09/09/2024 2:22 PM EST): NSTEMI 08/27/24, Per seal skinner Dr. Lopez, Patient without any significant risk factors currently undergoing gender transition with hormonal therapy presents with acute onset chest pain with elevated troponins consistent with myocardial injury consistent with NSTEMI. Possible etiologies include SCAD, plaque rupture and erosion much less likely although possible. Other possibility includes myocarditis given her recent ear infection although this was more than a month ago. I would currently treat her as an NSTEMI with IVheparin, aspirins, statins and metoprolol therapy. Found to have wall motion abnormalities in the RCA territory on echocardiogram Transferred to [facility]. -in [facility] troponin peaked at 73. EKG without ST elevation, ESR and CRP slightly elevated. -s/p cardia cath with Dr. Smith 08/29/24 minimal disease in the LAD unsure if this is related to spasm. No obstructive disease noted to explain troponin elevation. -aggressive primary risk factor modification if BP elevated favor calcium channel blockers. Consider work up with cardiac MRI. -Cardiology though symptoms most likely secondary from myopericardidits. -continue ASA, atrovastatin 40 and colchicine 0.6mg bid for x months (started 08/30/24 -follow up cardiology Post traumatic stress disorder (PTSD) 04/24/2024 Overview (04/24/2024): -[facility] dx pt with social anxiety disorder and PTSD on 12/05/23 -referred to behavioral health 04/24/24 Assessment & Plan (04/24/2024 3:39 PM EDT): -[facility] dx pt with social anxiety disorder and PTSD on 12/05/23 -referred to behavioral health 04/24/24 Social anxiety disorder 04/24/2024 Overview (04/24/2024): -[facility] dx pt with social anxiety disorder and PTSD on 12/05/23 -referred to behavioral health 04/24/24 Assessment & Plan (05/01/2024 2:32 PM EDT): During IBH Consult Jessica presenting with depressed mood, Tearful, hopelessness, irritable mood, loss of interests/pleasure , sense of isolation/loneliness , isolating, change in appetite or weight reduce appetite, changes in sleep difficulty falling asleep and difficulty staying asleep , psychomotor retardation, fatigue/loss of energy, indecisiveness; for a period of 18+ mo, for some symptoms in the context of family issues and financial concern. Pt reports feeling depressed lately; Jessica carries a diagnosis for PTSD, Social Anxiety and Gender Dysphoria per her medical chart. He was referred to [facility] in the past for autism evaluation. Pt reports he is waiting for results. Difficulty focusing and keeping up with appointments is main barrier to access services. Pt reports due to lack of concentration he keeps missing calls and lacking engagement. Financial concern is also a significant barrier. Pt lost some SSI benefits. Referral for CM will be placed to assist pt with resources and urgent SDOH needs. clinician engaged patient with active/reflective listening. Reviewed and assessed for risk, current stressors and protective factors. Provided information for [facility] and [facility] help line. clinician will place referrals for Psychiatry services and OP individual therapy. Pt is aware of importance of connecting with services. Provided coping mechanisms to incorporate into daily routine. Assessment & Plan (04/24/2024 3:39 PM EDT): -[facility] dx pt with social anxiety disorder and PTSD on 12/05/23 -referred to behavioral health 04/24/24 Pain 04/24/2024 Gender dysphoria 10/16/2023 Overview (09/09/2024): -Pt uses she/her pronouns -Has been on medication but declines at this time due to difficulties taking medications -Given the number for [facility] [employer] [facility] hair [facility] [phone] on 10/16/2023 - Given a list of voice coaches on 10/16/2023 -pt has therapist -she would like to restart estrogen she has been off since 2019 -start estradiol cypionate 5mg/ml, 0.4 ml q week (2mg) started on 06/07/24 -given pt had NSTEMI, will stop estrogen and refer to hematology to see if hypercoagulable work up indicated. If pt average risk, consider restarting estradiol patches for safer side effect profile. Assessment & Plan (09/09/2024 2:23 PM EST): -Pt uses she/her pronouns -Has been on medication but declines at this time due to difficulties taking medications -Given the number for [facility] [phone] on 10/16/2023 - Given a list of voice coaches on 10/16/2023 -pt has therapist -she would like to restart estrogen she has been off since 2018 -start estradiol cypionate 5mg/ml, 0.4 ml q week (2mg) started on 06/07/24 -given pt had NSTEMI, will stop estrogen and refer to hematology to see if hypercoagulable work up indicated. If pt average risk, consider restarting estradiol patches for safer side effect profile. Assessment & Plan (06/07/2024 12:24 PM EDT): -Pt uses she/her pronouns -Has been on medication but declines at this time due to difficulties taking medications -Given the number for [facility] [phone] on 10/16/2023 - Given a list of voice coaches on 10/16/2023 -pt has therapist -she would like to restart estrogen she has been off since 2019 -start estradiol cypionate 5mg/ml, 0.4 ml q week (2mg) started on 06/07/24 -check labs in 1 month Assessment & Plan (10/16/2023 10:27 AM EDT): -Pt uses she/her pronouns -Has been on medication but declines at this time due to difficulties taking medications -Given the number for [facility] [phone] on 10/16/2023 - Given a list of voice coaches on 10/16/2023 Muscle cramping 04/19/2023 Overview (04/19/2023): Magnesium given 04/19/2023. Assessment & Plan (04/19/2023 11:19 AM EDT): Magnesium given 04/19/2023. Other specified health status 04/17/2023 Overview (08/15/2024): -next physical exam due after 10/15/2024 -eye care referral to [facility] on 10/16/2023 -dental home is [facility] -health care proxy paper work filed 10/16/23 Assessment & Plan (10/16/2023 10:50 AM EDT): -next physical exam due after 10/15/2024 -eye care referral to [facility] on 10/16/2023, pt wants to discuss getting new frames -dental home is [facility] Dental - Health care proxy paperwork provided to the patient Lipoma of right upper extremity 11/16/2022 Overview (04/19/2023): -reassurance given -continue to monitor Assessment & Plan (11/16/2022 11:24 AM EDT): Reassurance given. -Continue to monitor. Other social stressor 11/16/2022 Dandruff 11/16/2022 Overview (04/19/2023): -selenium sulfide shampoo prn Assessment & Plan (11/16/2022 11:32 AM EDT): Shampoo sent. Current moderate episode of major depressive disorder without prior episode 11/16/2022 Overview (04/19/2023): Evaluated by behavior [facility] 11/24/2022. -Refered to empowerment project by [facility] Assessment & Plan (05/01/2024 10:26 AM EDT): During IBH Consult Jessica presenting with depressed mood, Tearful, hopelessness, irritable mood, loss of interests/pleasure , sense of isolation/loneliness , isolating, change in appetite or weight reduce appetite, changes in sleep difficulty falling asleep and difficulty staying asleep , psychomotor retardation, fatigue/loss of energy, indecisiveness; for a period of 18+ mo, for some symptoms in the context of family issues and financial concern. Pt reports feeling depressed lately; Jessica carries a diagnosis for PTSD, Social Anxiety and Gender Dysphoria per her medical chart. He was referred to [facility] in the past for autism evaluation. Pt reports he is waiting for results. Difficulty focusing and keeping up with appointments is main barrier to access services. Pt reports due to lack of concentration he keeps missing calls and lacking engagement. Financial concern is also a significant barrier. Pt lost some SSI benefits. Referral for CM will be placed to assist pt with resources and urgent SDOH needs. clinician engaged patient with active/reflective listening. Reviewed and assessed for risk, current stressors and protective factors. Provided information for [facility] and [facility] help line. clinician will place referrals for Psychiatry services and OP individual therapy. Pt is aware of importance of connecting with services. Provided coping mechanisms to incorporate into daily routine. Assessment & Plan (10/16/2023 10:37 AM EDT): Evaluated by behavior [facility] 11/24/2022. -Refered to empowerment project by [facility] Assessment & Plan (04/19/2023 10:56 AM EDT): Evaluated by [facility] 11/24/2022. -Refered to empowerment project by [facility] Autistic behavior 11/15/2022 Overview (06/07/2024): Pt presents as autistic and is having difficulties interacting. Pt would like to be evaluated in hopes they may have social training therapy. -Sent to [facility] for autism screening 11/24/2022. -Pt will see Iqra Mabry with behavioral health. -Referal done to behavioral health 04/19/2023 for adult autism teting done at [facility]. -Has an appointment at [facility] on 10/24/2023 at 2PM -ADOS did not meet criteria for Autism spectrum disorder. [facility] dx pt with social anxiety disorder and PTSD on 2023. -patient has behaviors consistent with Autisim Assessment & Plan (04/24/2024 3:38 PM EDT): Pt presents as autistic and is having difficulties interacting. Pt would like to be evaluated in hopes they may have social training therapy. -Sent to [facility] for autism screening 11/24/2022. -Pt will see Iqra Mabry with behavioral health. -Referal done to behavioral health 04/19/2023 for adult autism teting done at [facility]. -Has an appointment at [facility] on 10/24/2023 at 2PM -[facility] dx pt with social anxiety disorder and PTSD on 12/05/23 Assessment & Plan (10/16/2023 10:21 AM EDT): Pt presents as autistic and is having difficulties interacting. Pt would like to be evaluated in hopes they may have social training therapy. -Sent to [facility] for autism screening 11/24/2022. -Pt will see Iqra Mabry with behavioral health. -Referal done to behavioral health 04/19/2023 for adult autism teting done at [facility]. -Has an appointment at [facility] on 10/24/2023 at 2PM Assessment & Plan (04/19/2023 11:17 AM EDT): Pt presents as autistic and is having difficulties interacting. Pt would like to be evaluated in hopes they may have social training therapy. -Sent to behavioral [facility] for autism screening 11/24/2022. -Pt will see Iqra Mabry with behavioral health. -Referal done to behavioral health 04/19/2023 for adult autism teting done at [facility]. Assessment & Plan (11/16/2022 11:50 AM EDT): Pt presents as autistic and is having difficulties interacting. I have been encouraging her to seek diagnosis as it may help with the difficulties she is having in the community such as looking for a job. Pt would like to be evaluated in hopes they may have social training therapy. -Will send for autism screening. -Pt will see Iqra Mabry with behavioral health. Mild intermittent asthma 11/15/2022 Overview (04/19/2023): -well controlled on albuterol prn Assessment & Plan (04/24/2024 3:38 PM EDT): -well controlled on albuterol prn Resolved Problems Problem Noted Date Diagnosed Date Resolved Date Ear discomfort, bilateral 04/19/2023 Encounters Date Type Department Care Team Description 09/11/2024 10:30 AM EST Office Visit [facility] [address] [place] [address] David Solis DMD History of third molar tooth extraction, unspecified edentulism class (Primary Dx) 09/09/2024 11:00 AM EST Office Visit [address] [address] Ilda Andujar MD NSTEMI (non-ST elevated myocardial infarction) ([facility]) (Primary Dx); Gender dysphoria; Autistic behavior; Mild intermittent asthma without complication; Class 1 obesity due to excess calories without serious comorbidity with body mass index (BMI) of 31.0 to 31.9 in adult; Dietary counseling; Exercise counseling; Other specified health status 09/09/[address] [address] Ilda Andujar MD Appointment Request 09/09/2024 Travel 09/09/[address] [address] Ilda Andujar MD Chart Prep 09/02/2024 Patient Outreach [address] [address] Ilda Andujar MD Transition Of Care (Tcm) (HDF scheduled) 08/28/2024 Patient Outreach [address] [address] Ilda Andujar MD Transition Of Care (Tcm) (HDF unscheduled) 08/26/2024 Orders Only [facility] External Provider, [facility] 08/14/2024 10:30 AM EST Office Visit [facility] [address] [place] [address] David Solis DMD History of third molar tooth extraction, unspecified edentulism class (Primary Dx) 08/09/2024 11:00 AM EST Office Visit [facility] [address] [place] [address] Jenise Aguillon 08/08/2024 1:30 PM EST Clinical Support [address] [address] Jany Wilson, FAVIAN Gender dysphoria 08/06/2024 12:00 PM EST Office Visit [facility] AD[facility] [address] [place] [address] KahlilKimi Dental calculus (Primary Dx); Dental plaque 08/01/[address] [facility] [address] [place] [address] Jenise Aguillon rs appt 07/29/2024 1:00 PM EST Clinical Support [address] [address] Jany Wilson, FAVIAN Gender dysphoria 07/29/2024 Travel 07/22/2024 11:30 AM EST Clinical Support [address] [address] Sheri Wilkes RN Gender dysphoria 07/22/2024 Travel 07/15/2024 11:30 AM EST Clinical Support [address] [address] Kian Carter RN Gender dysphoria [F64.9] 07/15/2024 Travel 07/08/2024 11:00 AM EST Clinical Support [address] [address] Jany Wilson RN Gender dysphoria 07/08/2024 Travel 07/01/2024 11:00 AM EST Clinical Support [facility] [address] [place] [address] Jany Wilson RN Gender dysphoria 07/01/2024 Travel 06/25/[address] [facility] [place] [address] Ilda Andujar MD Mild intermittent asthma without complication (Primary Dx) 06/24/2024 10:30 AM EST Clinical Support [address] [address] Jany Wilson RN Gender dysphoria 06/24/[address] [address] Jany Wilson RN Med Refill 06/24/2024 Travel 06/17/2024 11:30 AM EST Clinical Support [address] [address] Jany Wilson RN Gender dysphoria 06/17/2024 Travel from Last 3 Months Immunizations Name Administration Dates Next Due Hep B, adult 10/20/2023,05/19/2023,04/19/2023 Influenza injectable quadriv alent IIV4 with preservative 06/22/2017,04/22/2015 Influenza injectable quadriv alent preservative free 04/19/2023,05/24/2022,05/02/2019 Influenza, seasonal, injecta ble, preservative free 04/24/2024 Pfizer Covid-19 Vaccine 12+ 06/07/2024,,02/08/2021 Pfizer Covid-19 Vaccine 12+ Bivalent 03/01/2021, 02/08/2021 Pneumococcal Conjugate PCV 20 04/24/2024 Tdap 06/22/2017 Social History Tobacco Use Types Packs/Day Years Used Date Smoking Tobacco: Never Passive Smoke Exposure: Never Smokeless Tobacco: Never Tobacco Cessation:Counseling Given: Not Answered Alcohol Use Standard Drinks/Week Comments Yes 0 [...] not to disclose 2021 10:14 AM EDT Last Filed Vital Signs Vital Sign Reading Time Taken Comments Blood Pressure 112/78 09/11/2024 10:29 AM EST Pulse 90 09/09/2024 11:01 AM EST Temperature 35.9 ??C (96.7 ??F) 09/09/2024 11:[address] Respiratory Rate 20 09/09/2024 11:01 AM EST Oxygen Saturation 96% 09/09/2024 11:01 AM EST Inhaled Oxygen Concentration - - Weight 92.5 kg (204 lb) 09/09/2024 11:01 AM EST Height 170.2 cm (5' 7 ) 09/09/2024 11:01 AM EST Body Mass Index 31.95 09/09/2024 11:01 AM EST Plan of Treatment Upcoming Encounters Date Type Department Care Team (Late st Contact Info) Description 09/18/2024 9:00 AM EST Office Visit [facility] [address] [place] [address] Ilda Andujar MD [address] [place] [address] 10/03/2024 2:00 PM EST Office Visit [facility] ADULT D[facility] [address] [place], [place] [phone] [facility] Maintenance Due Date Last Done Comments Dental X-Ray: Bitewings 1995 Dental X-Ray: Full Mouth 1995 Dental Oral Exam 11/18/2023 05/18/2023 SDOH Screening 08/30/2024 08/30/2023 Depression Monitoring (PHQ-9) 10/22/2024 04/24/2024, 04/24/2024 Dental Prophylaxis 02/04/2025 08/06/2024, 0 01/16/2024, 06/01/2023 Depression Screening 04/24/2025 04/24/2024, 04/24/20 Alcohol/Substance Use Screening 06/07/2025 06/07/2024 Family Planning (PISQ) 09/09/2025 09/09/2024 Tobacco Screening 09/09/2025 09/09/2024 DTaP/Tdap/Td Vaccines (2 - Td or Tdap) 07/02/2027 06/22/2017 Postponed from 06/22/2027 (Other Medical Reasons) Lipid Panel 10/30/2028 10/31/2023, 01/16/2017 Zoster Vaccines (1 of 2) 2045 RSV Patients and Patients Aged 60 years or older (1 - 1-dose 75+ series) 2070 HIV Screening Completed 01/16/2017 Hepatitis B Vaccines Completed 10/20/2023, 05/19/2023, 04/19/2023 Hepatitis C Screening Completed 10/31/2023 Influenza Vaccine Completed 04/24/2024, , 05/24/2022, Additional history exists Pneumococcal Vaccine: Pediatrics (0 to 5 Years) and At-Risk Patients (6 to 49) Years) Completed 04/24/2024 COVID-19 Vaccine Completed 06/07/2024, , 03/01/2021, Additional history exists HIB Vaccines Aged Out No longer eligi ble based on patient's age to complete this topic HPV Vaccines Aged Out No longer eligi ble based on patient's age to complete this topic Hepatitis A Vaccines Aged Out No long er eligible based on patient's age to complete this topic IPV Vaccines Aged Out No longer eligi ble based on patient's age to complete this topic Meningococcal Vaccine Aged Out No jeanie mariya eligible based on patient's age to complete this topic RSV under 20 months Aged Out No longe r eligible based on patient's age to complete this topic Rotavirus Vaccines Aged Out No longer eligible based on patient's age to complete this topic Procedures Procedure Name Priority Date/Time Associated Diagnosis Comments XR CHEST 1 VIEW Routine 09/12/2024 2:07 PM EST 32 ORAL & MAXILLOFACIAL SURGERY - EXTRACTIONS (INCLUDES LOCAL ANESTHESIA, SUTURING, IF NEEDED, AND ROUTINE POSTOPERATIVE CARE) - REMOVAL OF IMPACTED TOOTH - COMPLETELY BONY Routine 09/11/2024 10:30 AM EST 16 ORAL & MAXILLOFACIAL SURGERY - EXTRACTIONS (INCLUDES LOCAL ANESTHESIA, SUTURING, IF NEEDED, AND ROUTINE POSTOPERATIVE CARE) - REMOVAL OF IMPACTED TOOTH - COMPLETELY BONY Routine 09/11/2024 10:30 AM EST 17 ORAL & MAXILLOFACIAL SURGERY - EXTRACTIONS (INCLUDES LOCAL ANESTHESIA, SUTURING, IF NEEDED, AND ROUTINE POSTOPERATIVE CARE) - REMOVAL OF IMPACTED TOOTH - COMPLETELY BONY Routine 09/11/2024 10:30 AM EST CTA CHEST PE PROTOCAL Routine 08/26/2024 11:04 PM EST B TYPE NATRIURETIC PEPTIDE (BNP) Routine 08/26/2024 9:17 PM EST HIGH SENSITIVITY TROPONIN I Routine 08/26/2024 9:17 PM EST LACTIC ACID Routine 08/26/2024 9:17 PM EST D DIMER HIGH SENSITIVITY Routine 08/26/2024 9:17 PM EST XR CHEST 2 VIEWS Routine 08/26/2024 7:27 PM EST SED RATE BY MODIFIED WESTERGREN Routine 08/26/2024 7:26 PM EST HCG, TOTAL, QN Routine 08/26/2024 7:26 PM EST C-REACTIVE PROTEIN Routine 08/26/2024 7: 26 PM EST HIGH SENSITIVITY TROPONIN I Routine 08/26/2024 7:26 PM EST MAGNESIUM Routine 08/26/2024 7:26 PM EST BASIC METABOLIC PANEL Routine 08/26/2024 7:26 PM EST HEPATIC FUNCTION PANEL Routine 08/26/2024 7:26 PM EST CBC WITH AUTO DIFFERENTIAL Routine 08/26/2024 7:26 PM EST SARS COV2/INFLUENZA A/B AND RSV RNA QL NAAT Routine 08/26/2024 7:26 PM EST STREP A NUCLEIC ACID Routine 08/26/2024 7:26 PM EST 1 ORAL & MAXILLOFACIAL SURGERY - EXTRACTIONS (INCLUDES LOCAL ANESTHESIA, SUTURING, IF NEEDED, AND ROUTINE POSTOPERATIVE CARE) - REMOVAL OF IMPACTED TOOTH - COMPLETELY BONY Routine 08/14/2024 10:30 AM EST 2 EXTRACTION, ERUPTED TOOTH OR EXPOSED ROOT (ELEVATION AND/OR FORCEPS REMOVAL) Routine 08/14/2024 10:30 AM EST ADJUNCTIVE GENERAL SERVICES - UNCLASSIFIED TREATMENT - PALLIATIVE TREATMENT OF DENTAL PAIN - PER VISIT Routine 08/09/2024 11:00 AM EST CONSULTATION - DIAGNOSTIC SERVICE PROVIDED BY DENTIST OR PHYSICIAN OTHER THAN REQUESTING DENTIST OR PHYSICIAN Routine 08/09/2024 11:00 AM EST PROPHYLAXIS - ADULT Routine 08/06/2024 1 2:00 PM EST Dental calculus Dental plaque ORAL HYGIENE INSTRUCTIONS Routine 08/06/2024 12:00 PM EST Dental calculus Dental plaque ADJUNCTIVE GENERAL SERVICES - PROFESSIONAL VISITS - CASE PRESENTATION, SUBSEQUENT TO DETAILED AND EXTENSIVE TREATMENT PLANNING Routine 08/06/2024 12:00 PM EST ESTRADIOL, FREE Routine 07/15/2024 11:50 AM EST Mild intermittent asthma without complication BASIC METABOLIC PANEL Routine 07/15/2024 11:50 AM EST Gender dysphoria TESTOSTERONE, TOTAL, MALES (ADULT), IA Routine 07/15/2024 11:50 AM EST Gender dysphoria HEPATIC FUNCTION PANEL Routine 07/15/2024 11:50 AM EST Gender dysphoria PROLACTIN Routine 07/15/2024 11:50 AM EST Gender dysphoria HEPATITIS C AB W/REFL TO HCV RNA, QN, PCR Routine 10/31/2023 10:10 AM EDT Encounter for hepatitis C screening test for low risk patient LIPID PANEL, STANDARD Routine 10/31/2023 10:10 AM EDT Gender dysphoria COMPREHENSIVE ORAL EVALUATION - NEW OR ESTABLISHED PATIENT Routine 05/18/2023 2:30 PM EDT HIV-1 ANTIBODY, EIA Routine 01/16/2017 from Last 3 Months or Most Recently Relevant to Health Maintenance Results * XR Chest 1 View (09/12/2024 2:07 PM EST) Anatomical Region Laterality Modality Chest Radiographic Amna ging 09/12/2024 2:07 PM EST Narrative 09/12/2024 2:22 PM EST ? [facility] ?[address] ?[place] [address] ?XRay Report ? Signed ? Patient: Nicole,Roshelly ?MR#: [id number] ?? 362 ? : 1995 ?Acct:[id number] ? Age/Sex: 29 / F ?ADM Date: 02/06/25 ? Loc: HO.ED ? Attending Dr: ? Ordering Physician: Criss Adame ?? Date of Service: 09/12/24 ?? Procedure(s): XR chest 1V ?? Accession Number(s): [id number] ? cc: Vannesa Roca MD; Criss Adame ? EXAMINATION: ?? XR CHEST ? CLINICAL INFORMATION: ?? sob ? COMPARISON: ?? August 26, 2024. ? TECHNIQUE: ?? Frontal view of the chest was obtained. ? FINDINGS: ?? No consolidation, pleural effusion or pneumothorax. ?? Cardiomediastinal silhouette is normal in size. Osseous structures are ?? intact. ? XR/XR chest 1V ?? IMPRESSION: ?? No acute airspace disease. ? Electronically signed by: ??Mehdi Cheatham MD ??09/12/2024 02:19 PM ?? EST RP ? Dictated By: ?Mehdi Brewster MD ? Signed By: ?<Electronically signed by Mehdi Wilson MD in OV> ? 09/12/24 1419 ? DD/ 1407 ? TD/TT: 09/12/24 1411 ? Electrical And Instrument Engineer: ? Procedure Note Luc, Image - 09/12/[address] [address] XRay Report Signed Patient: Jessica NicoleMR#: [id number] 362 : 1995Acct:[id number] Age/Sex: 29 FADM Date: 09/12/24 Loc: .ED Attending Dr: Ordering Physician: Criss Adame Date of Service: 09/12/24 Procedure(s): XR chest 1V Accession Number(s): [id number] cc: Vannesa Roca MD; Criss Adame EXAMINATION: XR CHEST CLINICAL INFORMATION: sob COMPARISON: August 26, 2024. TECHNIQUE: Frontal view of the chest was obtained. FINDINGS: No consolidation, pleural effusion or pneumothorax. Cardiomediastinal silhouette is normal in size. Osseous structures are intact. XR/XR chest 1V IMPRESSION: No acute airspace disease. Electronically signed by: Mehdi Cheatham MD 09/12/2024 02:19 PM EST Dictated By: Mehdi Brewster MD Signed By: <Electronically signed by Mehdi Wilson MDin OV> 09/12/24 1419 DD/ 1407 TD/TT: 09/12/24 1411 Electrical And Instrument Engineer: [facility] External Provider IMG XR PROCEDURES Final Result * CTA Chest PE Protocal (08/26/2024 11:04 PM EST) Anatomical Region Laterality Modality Body, Chest Computed Tomogra phy 08/26/2024 11:0 4 PM EST Narrative 08/26/2024 11:06 PM EST ? [facility] ?[address] ?[place] [address] ? CT Scan Report ? Signed ? Patient: Nicole,Roshelly ?MR#: [id number] ?? 362 ? : 1995 ?Acct:[id number] ? Age/Sex: 29 / F ?ADM Date: 08/26/24 ? Loc: HO.ED ? Attending Dr: ? Ordering Physician: Vickie Soares DO ?? Date of Service: 08/26/24 ?? Procedure(s): CT angio chest PE protocol ?? Accession Number(s): [id number] ? cc: Vannesa Roca MD; Vickie Soares DO ? Report Number: ?? [id number]: Total DLP = ??285.00 mGy-cm ? CLINICAL HISTORY: tachycardia, chest pain ? CT angiography chest with contrast. 3D Postprocessing. ? Comparison: CR - XR CHEST 2V - 08/26/24 19:04 EST ? Findings: ?? The heart size is normal. RV/LV ratio is normal. ?? The thoracic aorta is normal caliber. ?? No pulmonary artery filling defects. ?? The visualized thyroid and mediastinum are unremarkable. ? No consolidation or effusion. ? The upper abdomen is unremarkable. ?? The bones are intact. ? IMPRESSION: ?? 1. No pulmonary embolus. ? This document has been electronically signed by: Zeb Murphy MD on ?? 08/26/2024 23:04:19 ? Dictated By: ?Zeb Murphy MD ? Signed By: ?<Electronically signed by Zeb Murphy MD in OV> ? 08/26/242304 ? DD/ 03 ? TD/TT: 08/26/242303 ? Electrical And Instrument Engineer: ? Procedure Note Donotuseinterpreter, Image - 08/26/[address] [address] [address] Scan Report Signed Patient: Terri Nicole#: [id number] 362 : 1995Acct:[id number] Age/Sex: 29 / FADM Date: 08/26/24 Loc: HO.ED Attending Dr: Ordering Physician: Vickie Soares DO Date of Service: 08/26/24 Procedure(s): CT angio chest PE protocol Accession Number(s): [id number] cc: Vannesa Roca MD; Vickie Soares DO Report Number: [id number]: Total DLP = 285.00 mGy-cm CLINICAL HISTORY: tachycardia, chest pain CT angiography chest with contrast. 3D Postprocessing. Comparison: CR - XR CHEST 2V - 08/26/24 19:04 EST Findings: The heart size is normal. RV/LV ratio is normal. The thoracic aorta is normal caliber. No pulmonary artery filling defects. The visualized thyroid and mediastinum are unremarkable. No consolidation or effusion. The upper abdomen is unremarkable. The bones are intact. IMPRESSION: 1. No pulmonary embolus. This document has been electronically signed by: Zeb Murphy MD on 08/26/2024 23:04:19 Dictated By: Zeb Murphy MD Signed By: <Electronically signed by Zeb Murphy MD in OV> 08/26/242304 DD/ 03 TD/TT: 08/26/242303 Electrical And Instrument Engineer: us [facility] External Provider IMG CT PROCEDURES Final Result * D Dimer High Sensitivity (08/26/2024 9:17 PM EST) D Dimer High Sensitivity 165 NG/ML [facility] Comment:D-DIMER HS REFERENCE RANGENote: Our assay reports D-Dimer Units (D- DU).The cut-off value for venous thromboembolic (VTE) disease is230 ng/mL. This value has a very high negative predictivevalue when the patient has a low to moderate clinicalprobability of VTE.The upper limit of normal is 243 ng/mL. 08/26/2024 9:17 PM EST 08/26/2024 9:23 PM EST Generic External Data Provider LAB BLOOD ORDERAB LES Final Result Performing Organization Address City/[facility] Co de Phone Number [facility] [address] [place] [phone] * (ABNORMAL) High Sensitivity Troponin I (08/26/2024 9:17 PM EST) Only the most recent of2 resultswithin the time period is included. Pathologist [facility] TROPONIN I HIGH SENSITIVITY 400.3(HH) <3.5 - 17.0 ng/L [facility] Comment:Critical value for t est(s): TROP Results called to and readback by: KERON Person calling: SCIDIANELYS Date:08/26/24 Time: Wells high sensitivity Troponin-I results should beused in conjunction with other diagnostic information suchas ECG, clinical observations and information, and patientsymptoms to aid in the diagnosis of IL. 08/26/2024 9:17 PM EST 08/26/2024 9:23 PM EST Generic External Data Provider LAB BLOOD ORDERAB LES Final Result Performing Organization Address City/[facility]/ZIP Co de Phone Number [facility] [address] [place] [phone] * B Type Natriuretic Peptide (BNP) (08/26/2024 9:17 PM EST) Pathologist [facility] B Type Natriuretic Peptide 11 <100 pg/mL [facility] Comment:For those patients w ho are being treated with Natrecor(nesiritide, recombinant BNP), BNP testing should beperformed at least two hours post treatment in order toensure that only endogenous levels of BNP are detected. 08/26/2024 9:17 PM EST 08/26/2024 9:23 PM EST us Generic External Data Provider LAB BLOOD ORDERAB LES Final Result Performing Organization Address [facility] de Phone Number [facility] [address] [place] [phone] * Lactic Acid (08/26/2024 9:17 PM EST) Lactic Acid 1.0 0.5 - 2.0 mmol/L [facility] 08/26/2024 9:17 PM EST 08/26/2024 9:23 PM EST Generic External Data Provider LAB BLOOD ORDERAB LES Final Result Performing Organization Address [facility] Phone Number [facility] [address] [place] [phone] * XR Chest 2 Views (08/26/2024 7:27 PM EST) Anatomical Region Laterality Modality Chest Radiographic Amna ging 08/26/2024 7:27 PM EST Narrative 08/26/2024 7:29 PM EST ? [facility] ?[address] ?[place] [address] ?XRay Report ? Signed ? Patient: Nicole,Maria Lly ?MR#: [id number] ?? 362 ? : 1995 ?Acct:[id number] ? Age/Sex: 29 / F ?ADM Date: 08/26/24 ? Loc: HO.ED ? Attending Dr: ? Ordering Physician: Nataly Richard ?? Date of Service: 08/26/24 ?? Procedure(s): XR chest 2V ?? Accession Number(s): [id number] ? cc: Vannesa Roca MD; Nataly Richard ? CLINICAL HISTORY: CP ? 2 view chest x-ray ? Comparison: None ? Findings: ?? The lungs are clear. ?? Heart size is normal. ?? No acute fracture. ? IMPRESSION: ?? 1. No acute findings. ? This document has been electronically signed by: Zeb Murphy MD on ?? 08/26/2024 19:27:18 ? Dictated By: ?Zeb Murphy MD ? Signed By: ?<Electronically signed by Zeb Murphy MD in OV> ? 08/26/241927 ? DD/ 26 ? TD/TT: 08/26/241926 ? Electrical And Instrument Engineer: ? Procedure Note Donotcamiloter, Image - 08/26/[address] [address] XRay Report Signed Patient: Jessica NicoleMR#: [id number] 362 : 1995Acct:[id number] Age/Sex: Date: 08/26/24 Loc: HO.ED Attending Dr: Ordering Physician: Nataly Richard Date of Service: 08/26/24 Procedure(s): XR chest 2V Accession Number(s): [id number] cc: Vannesa Roca MD; Nataly Richard CLINICAL HISTORY: CP 2 view chest x-ray Comparison: None Findings: The lungs are clear. Heart size is normal. No acute fracture. IMPRESSION: 1. No acute findings. This document has been electronically signed by: Zeb Murphy MD on 08/26/2024 19:27:18 Dictated By: Zeb Murphy MD Signed By: <Electronically signed by Zeb Murphy MD in OV> 08/26/241927 DD/ 26 TD/TT: 08/26/241926 Electrical And Instrument Engineer: [facility] External Provider IMG XR PROCEDURES Final Result * Strep A Nucleic Acid (08/26/2024 7:26 PM EST) IDNOW SERIAL# [id number] [facility] Strep A Nucleic Acid Negative Negative [facility] Comment:All test results mus t be correlated with clinical findings.This test has not been evaluated for monitoring treatment ofinfection.Additional follow-up testing using the culture method isrequired if the result is negative and clinical symptomspersist, or in the event of an acute rheumatic feveroutbreak. 08/26/2024 7:26 PM EST 08/26/2024 7:31 PM EST Generic External Data Provider LAB MICROBIOLOGY - GENERAL ORDERABLES Final Result Performing Organization Address [facility]/ZIP Co de Phone Number [facility] [address] [place] [phone] * SARS-CoV-2 RNA, Influenza A/B, and RSV RNA, Ql NAAT (08/26/2024 7:26 PM EST) Influenza A PCR NEGATIVE Negative [facility] Influenza B PCR NEGATIVE Negative [facility] Resp Syncy Virus RNA Qual PCR NEGATIVE Negative [facility] SARS COV2 PCR NEGATIVE Negative [facility] Comment:All test results mus t be correlated with clinical findings.Negative results do not preclude SARS-CoV2, influenza Avirus, influenza B virus and/or RSV infectionand should not be used as the sole basis for treatment orother patient management decisions. Negative results must becombined with clinical observations, patient history, andepidemiological information.This test has not been evaluated for monitoring treatment ofinfection.This test has been authorized by the FDA under an EmergencyUse Authorization (EUA) for use by authorized laboratories.Testing performed on the [employer] GeneXpert utilizingreal-time RT-PCR.All SARS CoV2 and positive influenza A/B results arereported to [facility]. 08/26/2024 7:26 PM EST 08/26/2024 7:31 PM EST Generic External Data Provider LAB MICROBIOLOGY - GENERAL ORDERABLES Final Result Performing Organization Address [facility]/ZIP Co de Phone Number [facility] [address] [place] [phone] * (ABNORMAL) CBC auto differential (08/26/2024 7:26 PM EST) White Blood Count 7.4 4.8 - 10.8 X10*3/uL [facility] Red Blood Count 4.85 4.20 - 5.50 X10*6/uL [facility] Hemoglobin 13.6 12.0 - 16.0 g/dl [facility] Hematocrit 40.5 37.0 - 47.0 % [facility] Mean Corpuscular Volume 83.5 80.0 - 98.0 fL [facility] Mean Corpuscular Hemoglobin 28.0 27.0 - 33.0 pg [facility] Mean Corpuscular HGB Conc 33.6 31.0 - 35.0 g/dl [facility] Red Cell Distribution Width 12.5 11.0 - 16.0 % [facility] Platelet Count 348 160 - 400 X10*3/uL [facility] Mean Platelet Volume 9.1(L) 9.4 - 12.3 fL [facility] Neutrophils Percent Auto 69.1 45 - 73 % [facility] Imm Gran Pct Auto 0.3 0.0 - 0.4 % [facility] Lymphocytes Percent Auto 20.7 20 - 40 % [facility] Monocytes Percent Auto 5.2 2 - 11 % [facility] Eosinophils Percent Auto 4.2(H) 0 - 4 % [facility] Basophils Percent Auto 0.5 0 - 2 % [facility] NRBC Pct Auto 0.0 0.0 - 0.2 /100WBC [facility] Neutrophils Absolute Auto 5.1 2.0 - 8.3 x10*3/uL [facility] Imm Gran Abs Auto 0.02 0.00 - 0.03 X10*3/uL [facility] Lymphocytes Absolute Auto 1.5 1.2 - 4.9 X10*3/uL [facility] Monocytes Absolute Auto 0.4 0.1 - 1.2 X10*3/uL [facility] Eosinophils Absolute Auto 0.3 0.0 - 0.4 X10*3/uL [facility] Basophils Absolute Auto 0.0 0.0 - 0.2 X10*3/uL [facility] NRBC Abs Auto 0.000 0.0 - 0.012 X10*3/uL [facility] 08/26/2024 7:26 PM EST 08/26/2024 7:31 PM EST us Generic External Data Provider LAB BLOOD ORDERAB LES Final Result [facility] [address] [place] [phone] * (ABNORMAL) Sed Rate by Modified Westergren (08/26/2024 7:26 PM EST) Erythrocyte Sedimentation Rate 22(H) 0 - 20 MM/HR [facility] Comment:Patients with polycy themia and many hemoglobin abnormalitiesmay have depressed sed rates whereas patients with anemiamay have elevated sed rates. 08/26/2024 7:26 PM EST 08/26/2024 9:33 PM EST us Generic External Data Provider LAB BLOOD ORDERAB LES Final Result Performing Organization Address City/[facility]/ZIP Co de Phone Number [facility] [address] [place] [phone] * (ABNORMAL) C-reactive Protein (08/26/2024 7:26 PM EST) C Reactive Protein 1.38(H) < or = 0.50 mg/dL [facility] 08/26/2024 7:26 PM EST 08/26/2024 7:31 PM EST us Generic External Data Provider LAB BLOOD ORDERAB LES Final Result Performing Organization Address City/[facility]/ZIP Co de Phone Number [facility] [address] [place] [phone] * hCG, Total, Quantitative (08/26/2024 7:26 PM EST) HCG Quantitative <2 mIU/mL [facility] Comment:Weeks post LMP Appro ximate hCG(Last Menstrual Period) Range (mIU/ml)3 - 4 weeks 9 - 1304 - 5 weeks 75 - 2,6005 - 6 weeks 850 - 20,8006 - 7 weeks 4000 - 100,2007 - 12 weeks 11,500 - 289,76711 - 16 weeks 18,300 - 137,08598 - 29 weeks (2nd trimester) 1,400 - 53,43501 - 41 weeks (3rd trimester) 940 - 60,000The Wells B- hCG assay is used for the early detection ofpregnancy; it cannot be used to diagnose any conditionunrelated to . If a B-hCG level is not supportedby the clinical evidence, results should be confirmed by analternative method (qualitative urine hCG, for example). 08/26/2024 7:26 PM EST 08/26/2024 7:31 PM EST Generic External Data Provider LAB BLOOD ORDERAB LES Final Result Performing Organization Address [facility] Co de Phone Number [facility] [address] [place] [phone] * Magnesium (08/26/2024 7:26 PM EST) Magnesium 2.1 1.6 - 2.6 mg/dL [facility] 08/26/2024 7:26 PM EST 08/26/2024 7:31 PM EST Generic External Data Provider LAB BLOOD ORDERAB LES Final Result Performing Organization Address [facility] de Phone Number [facility] [address] [place] [phone] * Hepatic Function Panel (08/26/2024 7:26 PM EST) Only the most recent of2 resultswithin the time period is included. Bilirubin, Total 0.2 0.0 - 1.0 mg/dL [facility] Bilirubin, Direct <0.2 0.0 - 0.5 mg/dL [facility] Aspartate Amino Transferase 26 5 - 31 U/L [facility] Comment:Slight Hemolysis.Int erpret result with caution. Alanine Aminotransferase 30 0 - 31 U/L [facility] Total Protein 7.7 6.5 - 8.0 g/dL [facility] Albumin Level 4.0 3.5 - 5.0 g/dL [facility] Alkaline Phosphatase 82 39 - 117 U/L [facility] 08/26/2024 7:26 PM EST 08/26/2024 7:31 PM EST us Generic External Data Provider LAB BLOOD ORDERAB LES Final Result [facility] [address] [place] [phone] * Basic Metabolic Panel (08/26/2024 7:26 PM EST) Only the most recent of2 resultswithin the time period is included. Sodium 138 135 - 145 mmol/L [facility] Potassium 4.9 3.3 - 5.1 mmol/L [facility] Comment:Slight Hemolysis.Int erpret result with caution. Chloride 105 96 - 108 mmol/L [facility] Carbon Dioxide 25 22 - 29 mmol/L [facility] Anion Gap 13 12 - 20 [facility] Urea Nitrogen (BUN) 12 9 - 16 mg/dL [facility] Creatinine, Serum 0.70 0.5 - 1.4 mg/dL [facility] Creatinine Clr Calc Pharmacy 138.4 [facility] Comment:Provided height and weight: 170.18 cm,92.4 kg.eGFR (calculated from the MDRD study equation) and eCrCl(calculated from the Cockcroft-Gault equation) are based ondifferent parameters and may not yield comparable results.If eCrCl result is absurd, please check patient'sheight/weight. Estimated Glomerular Filt Rate >60 [facility] Comment:Chronic Kidney Disea se: Estimated GFR < 60 mL/min/1.93q9Cqvkut Kidney Disease: Estimated GFR < 15 mL/min/1.73m2 Glucose 91 60 - 115 mg/dL [facility] Calcium 8.9 8.4 - 10.2 mg/dL [facility] 08/26/2024 7:26 PM EST 08/26/2024 7:31 PM EST us Generic External Data Provider LAB BLOOD ORDERAB LES Final Result Performing Organization Address [facility] Co de Phone Number [facility] [address] [place] [phone] * Estradiol, Free (07/15/2024 11:50 AM EST) Estradiol, Free TNP pg/mL [facility] Comment:TEST(S) NOT PERFORME D: ESTRADIOL, FREEUnable to report due topossible interfering substances.THIS TEST WAS PERFORMED AT:[employer] [id number] [facility] [phone] NOVOA MD,PHD,DUTCH Estradiol, Ultrasensitive, LC/MS 98 pg/mL [facility] Comment:Female Reference Ran ges for Estradiol, Ultrasensitive (pg/mL): Follicular Phase: 39-375 Luteal Phase: 48-440 Postmenopausal Phase: < or = 10This test was developed and its analytical performancecharacteristics have been determined by [employer].It has not been cleared or approved by FDA. This assay hasbeen validated pursuant to the CLIA regulations and is usedfor clinical purposes. 07/15/2024 11:5 0 AM EST 07/15/2024 1:07 PM EST us Ilda Andujar MD LAB BLOOD ORDERABLES Final Result Performing Organization Address [facility] Co de Phone Number [facility] [address] [place] [phone] * Prolactin (07/15/2024 11:50 AM EST) Prolactin 6.9 ng/mL [facility] Comment:Reference Range Fema les Non- 3.0-30.0 10.0-209.0 Postmenopausal 2.0-20.0THIS TEST WAS PERFORMED AT:[employer] [address] [phone] ARSHAD MD Blood Venous blood specimen / Unknown 07/15/2024 11:50 AM EST 07/15/2024 1:07 PM EST Ilda Andujar MD LAB BLOOD ORDERABLES Final Result Performing Organization Address [facility] Co de Phone Number [facility] [address] [place] [phone] * Testosterone, Total, males (Adult), IA (07/15/2024 11:50 AM EST) Testosterone, Total 28 2 - 45 ng/dL [facility] Comment:For additional infor mation, please refer [email or web address]/faq/[email or web address](This link is being provided for informational/educational purposes only.)This test was developed and its analytical performancecharacteristics have been determined by [employer] [place], [place]. It hasnot been cleared or approved by the U.S. Food and DrugAdministration. This assay has been validated pursuantto the CLIA regulations and is used for clinicalpurposes.THIS TEST WAS PERFORMED AT:[employer] [employer] [place] [id number] REYES MD,PHD Blood Venous blood specimen / Unknown 07/15/2024 11:50 AM EST 07/15/2024 1:07 PM EST Ilda Andujar MD LAB BLOOD ORDERABLES Final Result Performing Organization Address [facility]/[employer] de Phone Number [facility] [address] [place] [phone] * Hepatitis C Antibody with Reflex to HCV, RNA, Quantitative, Real-Time PCR (10/31/2023 10:10 AM EDT) Hepatitis C Antibody Nonreactive Nonreactive [facility] Comment:Antibodies to HCV no t detected; does not exclude early acuteHCV infection. Blood Venous blood specimen / Unknown 10/31/2023 10:10 AM EDT 10/31/2023 11:53 AM EDT Ilda Andujar MD LAB BLOOD ORDERABLES Final Result Performing Organization Address [facility]/[employer] Co de Phone Number [facility] [address] [place] [phone] * (ABNORMAL) Lipid Panel, Standard (10/31/2023 10:10 AM EDT) Triglycerides 89 <150 mg/dL [facility] Comment:Desirable Triglyceri de: less than 150 mg/dLBorderline High Triglyceride 150-199 mg/dLHigh Triglyceride: 200-499 mg/dLVery High Triglyceride: greater than or equal to 5OO mg/dL Cholesterol 163 <200 mg/dL [facility] Comment:Desirable Cholestero l: less than 200 mg/dLBorderline High Cholesterol: 200-239 mg/dLHigh Cholesterol: greater than 239 mg/dL LDL Cholesterol Calculated 104(H) <100 mg/dL [facility] Comment:Desirable LDL: less than 100 mg/dLNear Optimal/Above Optimal LDL: 110- 129 mg/dLBorderline High LDL: 130-159 mg/dLHigh LDL: 160-189 mg/dLVery High LDL: greater than or equal to 190 mg/dL HDL Cholesterol 42 >40 mg/dL [facility] Comment:Desirable HDL: great er than 40 mg/dL Note: This HDL assay may give artificially low results in patients with liver disease. Blood Venous blood specimen / Unknown 10/31/2023 10:10 AM EDT 10/31/2023 11:53 AM EDT Ilda Andujar MD LAB BLOOD ORDERABLES Final Result Performing Organization Address [facility] [employer] de Phone Number [facility] [address] [place] [phone] * HIV-1 antibody, EIA (01/16/2017) External HIV-1 Antibody Negative Blood Venous blood specimen / Unknown us Historical Provider LAB BLOOD ORDERABLES Lou l Result from Last 3 Months or Most Recently Relevant to Health Maintenance Insurance [facility] C3 HSN PARTIAL DENTAL-[facility] MEDICAID STAND ADULT Advance Directives Documents on File Type Date Recorded Patient Elementary Assistant Principal Expl anation Advance Directives and Living Will 04/25/2024 11:16 AM Health Care Proxy Care Teams Technologist Development Relationship Specialty Start Date End Date [place], [place] Ilda [address] [place] [phone] PCP - General Family Medicine 07/20/17 Pankaj Lopez MD [address] [place] [address] 3rd [place] [address] Cardiology 08/27/24
--- OUTSIDE RECORDS SUMMARY | 2024-09-12 14:43 | XMS_ITS | Encounter Summary ---
Author Organization [employer] Address [address] 7[address] [place] [address] Care Team Providers Care Hand Painter Name Role Phone Ilda Andujar MD Primary Care Provider +1- [phone] Reason for Visit * Reason Comments Extraction #2 Encounter Details Date Type Department Care Team ([facility] st Contact Info) Description 08/14/2024 10:30 AM EST Office Visit [facility] [address] [place], [place] [phone] David Solis, DMD [address] [place] [address] History of third molar tooth extraction, unspecified edentulism class (Primary Dx) Social History Tobacco Use Types Packs/Day Years [...] AM EDT documented as of this encounter Last Filed Vital Signs Vital Sign Reading Time Taken Comments Blood Pressure 104/72 08/14/2024 11:05 AM EST Pulse - - Temperature - - Respiratory Rate - - Oxygen Saturation - - Inhaled Oxygen Concentration - - Weight - - Height - - Body Mass Index - - documented in this encounter Progress Notes * David Solis DMD - 08/14/2024 10:30 AM EST Pt presents for evaluation for extraction of full bone impacted tooth 1 and tooth 2; Cx of pain PMHx, Medications and allergies reviewed and appreciated; no changes from 09/06/23 Dx: full bone impacted tooth 1 and deep deca tooth 2 R/B/I/A for extraction of full bone impacted tooth 1 and tooth 2 under local anesthesia reviewed, consent obtained from patient Tx: after obtaining appropriate consent, the patient was placed in a semi reclined position. Topical anesthesia was placed, then 1 carpule of 4% articaine with 1;200k epi was administered as infiltration for teeth 1, 2. A full thickness buccal flap revealed full bone impacted tooth 1. Necessary osteoplasty was performed with hand instruments. Teeth 1, 2 were then extracted with elevator and forceps with the apices intact. The sockets were debrided, the area of tooth 1 was closed with 3.0 chromic gut suture and a gauze pack was placed at the site. There were no complications and the patient tolerated the procedure well. Written and verbal post operative instructions were given to the patient NV: dental care as scheduled documented in this encounter Plan of Treatment Upcoming Encounters Date Type Department Care Team (Late st Contact Info) Description 09/18/2024 9:00 AM EST Office Visit [facility] MED[facility] [address] [place] [address] [phone] Ilda Andujar MD [address] [place] [address] [phone] 10/03/2024 2:00 PM EST Office Visit [facility] ADULT DENTAL [address] [place] [address] [phone] Bre Van documented as of this encounter Procedures Procedure Name Priority Date/Time Associated Diagnosis Comments 1 ORAL & MAXILLOFACIAL SURGERY - EXTRACTIONS (INCLUDES LOCAL ANESTHESIA, SUTURING, IF NEEDED, AND ROUTINE POSTOPERATIVE CARE) - REMOVAL OF IMPACTED TOOTH - COMPLETELY BONY Routine 08/14/2024 10:30 AM EST 2 EXTRACTION, ERUPTED TOOTH OR EXPOSED ROOT (ELEVATION AND/OR FORCEPS REMOVAL) Routine 08/14/2024 10:30 AM EST documented in this encounter Visit Diagnoses Diagnosis History of third molar tooth extraction, unspecified edentulism class- Primary documented in this encounter Additional Health Concerns Assessment Noted Time PHQ-9 Depression Total Score: 13 09/2 024 3:33 PM EDT documented as of this encounter Care Teams Hand Painter Relationship Specialty Start Date End Date Ilda Andujar MD [address] [place] [phone] PCP - General Family Medicine 07/20/17 documented as of this encounter
--- OUTSIDE RECORDS SUMMARY | 2024-09-12 14:43 | XMS_ITS | Encounter Summary ---
Author Organization [employer] Address [address] 7t [place] [address] Care Team Providers Care Chartered Accountant Name Role Phone Ilda Andujar MD Primary Care Provider +1- [phone] Pankaj Lopez MD Unavailable Reason for Visit * Reason Onset Date Comments rs appt 08/01/2024 Encounter Details Date Type Department Care Team ([facility] st Contact Info) Description 08/01/2024 Telephone [facility] [address] [place], [place] [phone] Michel Aguillonpreralph [address] [place] [address] rs appt Social History Tobacco Use Types Packs/Day Years [...] Frequency of Binge Drinking Not on file 0 08/2023 Depression Answer Date Recorded Patient Health [...] AM EDT documented as of this encounter Plan of Treatment Upcoming Encounters Date Type Department Care Team (Late st Contact Info) Description 09/18/2024 9:00 AM EST Office Visit [facility] MED[facility] [address] [place] [phone] Ilda Andujar MD [address] [place] [address] 10/03/2024 2:00 PM EST Office Visit [facility] ADULT DENTAL [address] [place] [phone] Bre Van documented as of this encounter Visit Diagnoses Not on filedocumented in this encounter Additional Health Concerns Assessment Noted Time PHQ-9 Depression Total Score: 13 024 3:33 PM EDT documented as of this encounter Care Teams Chartered Accountant Relationship Specialty Start Date End Date Ilda Andujar MD [address] [place] [phone] PCP - General Family Medicine 07/20/17 Pankaj Lopez MD [address] 3rd [place] [address] Cardiology 08/27/24 documented as of this encounter
--- OUTSIDE RECORDS SUMMARY | 2024-09-12 14:43 | XMS_ITS | Encounter Summary ---
Author Organization [employer] Address [address] [place] [address] Care Team Providers Care Patient Admitting Clerk Name Role Phone Ilda Andujar MD Primary Care Provider +1- [phone] Pankaj Lopez MD Unavailable Reason for Visit * Reason Onset Date Comments Appointment Request 09/09/2024 Encounter Details Date Type Department Care Team ([facility] st Contact Info) Description 09/09/2024 Telephone [facility] [address] [place], [place] [phone] Ilda Andujar MD [address] [place] [address] Appointment Request Social History Tobacco Use Types Packs/Day Years [...] as of this encounter Miscellaneous Notes * Telephone Encounter - Korin Marcelo [place] - 09/09/2024 11:54 AM EST Contacted [facility] in regards to a f/u appt that is either scheduled or needs to be scheduled.Tried calling them 3x but each time it kept sending me to voicemail. LVM to give pt a call in regards to scheduling a f/u appt with or to at least make her aware of an expected appt. LB documented in this encounter Plan of Treatment Upcoming Encounters Date Type Department Care Team (Late st Contact Info) Description 09/18/2024 9:00 AM EST Office Visit [facility] [address] [place] [address] Ilda Andujar MD [address] [place] [address] 10/03/2024 2:00 PM EST Office Visit [facility] ADULT DENTAL [address] [place] [address] Bre Van documented as of this encounter Visit Diagnoses Not on filedocumented in this encounter Additional Health Concerns Assessment Noted Time PHQ-9 Depression Total Score: 13 04/24/ 024 3:33 PM EDT documented as of this encounter Care Teams Patient Admitting Clerk Relationship Specialty Start Date End Date Ilda Andujar MD [address] [place] [phone] PCP - General Family Medicine 07/20/17 Pankaj Lopez MD [address] [place] [address] [address] [place] [address] Cardiology 08/27/24 documented as of this encounter
--- OUTSIDE RECORDS SUMMARY | 2024-09-12 14:43 | XMS_ITS | Encounter Summary ---
Author Organization [employer] Address [address] 7[address] [place] [address] Care Team Providers Care Type Soldering Machine Tender Name Role Phone Ilda Andujar MD Primary Care Provider +1- [phone] Pankaj Lopez MD Unavailable Reason for Visit * Reason Comments Extraction Encounter Details Date Type Department Care Team ([facility] Contact Info) Description 09/11/2024 10:30 AM EST Office Visit [facility] ADULT [facility] [address] [place] [address] David Solis, DMD [address] [place] [address] History of third molar tooth extraction, unspecified [...] the past 12 months, has t he [employer], gas, oil or water company threatened to [...] Pressure 112/78 09/11/2024 10:29 AM EST Pulse - - Temperature - - Respiratory Rate - - Oxygen Saturation - - Inhaled Oxygen Concentration - - Weight - - Height - - Body Mass Index - - documented in this encounter Progress Notes * David Solis, DMD - 09/11/2024 10:30 AM EST Pt presents for extraction of full bone impacted teeth 16, 17, 32 PMHx, Medications and allergies reviewed and appreciated Dx: full bone impacted teeth 16, 17, 32 R/B/I/A for extraction of full bone impacted teeth 16, 17, 32 under local anesthesia reviewed, consent obtained from patient Tx: after obtaining appropriate consent, the patient was placed in a semi reclined position. Topical anesthesia was placed, then 3 carpule of 4% articaine with 1;200k epi was administered as infiltration for tooth 16 and as infiltration and bilateral [place] block for teeth 17, 32. Tooth 16: full thickness buccal flap revealed full bone impacted tooth 16. Necessary osteoplasty was performed with handinstruments. Tooth Tooth 16 was then extracted with elevator and forceps with the apices intact. The socket was debrided and closed with 3.0 chromic gut suture. Teeth 17, 32: full thickness buccal flap revealed full bone impacted teeth 17, 32. Necessary osteoplasty and sectioning was performed with an air impact drill under direct visualization and copious irrigation. Teeth 17, 32 were then extracted with elevator and forceps with the apices intact. The sockets were debrided and closed with 3.0 chromic gut suture. Gauze packs were placed at the surgical sites. There were no complications andthe patient tolerated the procedure well. Written and verbal post operative instructions were given to the patient NV: dental care as scheduled documented in this encounter Plan of Treatment Upcoming Encounters Date Type Department Care Team (Late st Contact Info) Description 09/18/2024 9:00 AM EST Office Visit [facility] MEDICINE [address] [place] [phone] Ilda Andujar MD [address] [place], [place] [phone] 10/03/2024 2:00 PM EST Office Visit [facility] ADULT DENTAL [address] [place] [address] Bre Van documented as of this encounter Procedures Procedure Name Priority Date/Time Associated Diagnosis Comments 32 ORAL & MAXILLOFACIAL SURGERY - EXTRACTIONS [...] COMPLETELY BONY Routine 09/11/2024 10:30 AM EST documented in this encounter Visit Diagnoses Diagnosis History of third molar tooth extraction, unspecified edentulism class- Primary documented in this encounter Additional Health Concerns Assessment Noted Time PHQ-9 Depression Total Score: 13 04/24/2 024 3:33 PM EDT documented as of this encounter Care Teams Type Soldering Machine Tender Relationship Specialty Start Date End Date Ilda Andujar MD [address] [place] [address] PCP - General Family Medicine 07/20/17 Pankaj Lopez MD [address] [place] [address] 3rd [place] [address] Cardiology 08/27/24 documented as of this encounter
--- OUTSIDE RECORDS SUMMARY | 2024-09-12 14:43 | XMS_ITS | Encounter Summary ---
Author Organization [employer] Address [address] [place] [address] Care Team Providers Care Telegraph Messenger Name Role Phone Ilda Andujar MD Primary Care Provider +1- [phone] Pankaj Lopez MD Unavailable Reason for Visit * Reason Comments Transition Of Care (Tcm) HDF scheduled Encounter Details Date Type Department Care Team (Late st Contact Info) Description 09/02/2024 Patient Outreach [facility] [address] [place] [address] Ilda Andujar MD [address] [place] [address] Transition Of Care (Tcm) (HDF scheduled) Social History Tobacco Use Types Packs/Day Years [...] the past 12 months, has t he [employer], gas, oil or water company threatened to [...] * Significant Event - Mary Cheung - 09/02/2024 11:48 AM EST 09/02/24 1148 Hospital Discharges and Admission for [facility] Type of Visit Hospital Admission Date of Admission/Visit 08/27/24 Date of Discharge 08/30/24 Facility [facility] Diagnosis HTN Disposition Discharged Home Follow-Up Actions Follow-Up Needed Provider appointment Follow-Up Outcome Spoke to Patient Initial Contact Date 09/02/24 LC Hernandez placed outbound call to patient for HDF outreach. CC placing call to offer patient with an HDF appointment with provider. Patient's name and were confirmed. Patient was educated on the importance of following up with provider following an inpatient admission. Patient offered an HDF appt. Patient is agreeable to an appointment and has been scheduled for at 09/18/2024 with 9:00 am insurance verified prior to scheduling. Patient advised to bring to appointment a photo id and insurance card. Biggest concerns at appointment at this time is none Patient provided with education on contacting the Health Center with any questions or concerns prior to the scheduled appointment. Patient educated on extended clinic hours on Mondays and Wednesdays, and Walk-In Urgent Care Located in [facility]. Patient provided with after-hours line for [facility], , which offer night time triage service and option to transfer to tongue and groove machine feeder provider if needed. [facility] discharge summary has been scanned into patient chart for review documented in this encounter Plan of Treatment Upcoming Encounters Date Type Department Care Team (Late st Contact Info) Description 09/18/2024 9:00 AM EST Office Visit [facility] MED[facility]INE [address] [place] [address] Ilda Andujar MD [address] [place], [place] [phone] 10/03/2024 2:00 PM EST Office Visit [facility] ADULT DENTAL [address] [place], [place] [phone] Bre Van documented as of this encounter Visit Diagnoses Not on filedocumented in this encounter Additional Health Concerns Assessment Noted Time PHQ-9 Depression Total Score: 13 024 3:33 PM EDT documented as of this encounter Care Teams Telegraph Messenger Relationship Specialty Start Date End Date Ilda Andujar MD [address] [place] [address] [phone] PCP - General Family Medicine 07/20/17 Pankaj Lopez MD [address]rd [place] [address] Cardiology 08/27/24 documented as of this encounter
--- OUTSIDE RECORDS SUMMARY | 2024-09-12 14:43 | XMS_ITS | Encounter Summary ---
Author Organization [employer] Address [address] 7[address] [place] [address] Care Team Providers Care Service Desk Agent Name Role Phone Ilda Andujar MD Primary Care Provider +1- [phone] Pankaj Lopez MD Unavailable Encounter Details Date Type Department Care Team (Latest Contact Info) Description 09/09/2024 Travel Social History Tobacco Use Types Packs/Day Years [...] Description 09/18/2024 9:00 AM EST Office Visit [facility] MEDICINE [address] [place] [phone] Ilda Andujar MD [address] [place] [address] 10/03/2024 2:00 PM EST Office Visit [facility] ADULT DENTAL [address] [place] [phone] Bre Van documented as of this encounter Visit Diagnoses Not on filedocumented in this encounter Additional Health Concerns Assessment Noted Time PHQ-9 Depression Total Score: 13 024 3:33 PM EDT documented as of this encounter Care Teams Service Desk Agent Relationship Specialty Start Date End Date Ilda Andujar MD [address] [place] [phone] PCP - General Family Medicine 07/20/17 Pankaj Lopez MD [address] 3rd [place] [address] Cardiology 08/27/24 documented as of this encounter
--- OUTSIDE RECORDS SUMMARY | 2024-09-12 14:43 | XMS_ITS | Encounter Summary ---
Author Organization [employer] Address [address] [place] [address] Care Team Providers Care Technical Coordinator Name Role Phone Ilda Andujar MD Primary Care Provider +1- [phone] Encounter Details Date Type Department Care Team ([facility] st Contact Info) Description 08/26/2024 Orders Only [facility] External Provider, [facility] Social History Tobacco Use Types Packs/Day Years [...] Description 09/18/2024 9:00 AM EST Office Visit [facility] MEDICINE [address] [place], [place] [phone] Ilda Andujar MD [address] [place], [place] [phone] 10/03/2024 2:00 PM EST Office Visit [facility] ADULT DENTAL [address], [place] [phone] Bre Van documented as of this encounter Procedures Procedure Name Priority Date/Time Associated Diagnosis Comments XR CHEST 1 VIEW Routine 09/12/2024 2:07 PM EST CTA CHEST PE PROTOCAL Routine 08/26/2024 11:04 PM EST D DIMER HIGH SENSITIVITY Routine 08/26/2024 9:17 PM EST HIGH SENSITIVITY TROPONIN I Routine 08/26/2024 9:17 PM EST B TYPE NATRIURETIC PEPTIDE (BNP) Routine 08/26/2024 9:17 PM EST LACTIC ACID Routine 08/26/2024 9:17 PM EST XR CHEST 2 VIEWS Routine 08/26/2024 7:27 PM EST STREP A NUCLEIC ACID Routine 08/26/2024 7:26 PM EST HIGH SENSITIVITY TROPONIN I Routine 08/26/2024 7:26 PM EST SARS COV2/INFLUENZA A/B AND RSV RNA QL NAAT Routine 08/26/2024 7:26 PM EST CBC WITH AUTO DIFFERENTIAL Routine 08/26/2024 7:26 PM EST SED RATE BY MODIFIED WESTERGREN Routine 08/26/2024 7:26 PM EST C-REACTIVE PROTEIN Routine 08/26/2024 7: 26 PM EST HCG, TOTAL, QN Routine 08/26/2024 7:26 PM EST MAGNESIUM Routine 08/26/2024 7:26 PM EST HEPATIC FUNCTION PANEL Routine 08/26/2024 7:26 PM EST BASIC METABOLIC PANEL Routine 08/26/2024 7:26 PM EST documented in this encounter Results * XR Chest 1 View (09/12/2024 2:07 PM EST) Anatomical Region Laterality Modality Chest Radiographic Amna ging 09/12/2024 2:07 PM EST Narrative 09/12/2024 2:22 PM EST ? [facility] ?[address] ?[place] [address] ?XRay Report ? Signed ? Patient: Nicole,Roshelly ?MR#: [id number] ?? 362 ? : 1995 ?Acct:[id number] ? Age/Sex: 29 / F ?ADM Date: 02/06/25 ? Loc: HO.ED ? Attending Dr: ? Ordering Physician: Criss Adame ?? Date of Service: 09/12/24 ?? Procedure(s): XR chest 1V ?? Accession Number(s): [id number] ? cc: Vannesa Roca MD; Criss Adame [...] acute airspace disease. ? Electronically signed by: ??Mehid Cheatham MD ??09/12/2024 02:19 PM ?? EST RP ? Dictated By: ?Mehdi Brewster MD ? Signed By: ?<Electronically signed by Mehdi Wilson MD in OV> ? 09/12/24 1419 ? DD/ 1407 ? TD/TT: 09/12/24 1411 ? Concert Promoter: ? Procedure Note Donotgarrettinterpreter, Image - 09/12/2024 [place] [address] XRay Report Signed Patient: Jessica NicoleMR#: [id number] 362 : 1995Acct:[id number] Age/Sex: Date: 09/12/24 Loc: .ED Attending Dr: Ordering Physician: Criss Adame Date of Service: 09/12/24 Procedure(s): XR chest 1V Accession Number(s): [id number] cc: Vannesa Roca MD; Criss Adame EXAMINATION: [...] 09/12/24 1419 DD/ 1407 TD/TT: 09/12/24 1411 Concert Promoter: us [facility] External Provider IMG XR PROCEDURES Final Result * CTA Chest PE Protocal (08/26/2024 11:04 PM EST) Anatomical Region Laterality Modality Body, Chest Computed Tomogra phy 08/26/2024 11:0 4 PM EST Narrative 08/26/2024 11:06 PM EST ? [facility] ?[address] ?[place], [place] [address] ? CT Scan Report ? Signed ? Patient: Jessica Nicole ?MR#: [id number] ?? 362 ? : 1995 ?Acct:[id number] ? Age/Sex: 29 / F ?ADM Date: 08/26/24 ? Loc: HO.ED ? Attending Dr: ? Ordering Physician: Vickie Soares DO ?? Date of Service: 08/26/24 ?? Procedure(s): CT angio chest PE protocol ?? Accession Number(s): [id number] ? cc: Vannesa Roca MD; Vickie Soares DO ? Report Number: ?? [id number]: Total DLP = ??285.00 mGy-cm ? CLINICAL [...] by Zeb Murphy MD in OV> ? 08/26/24 2305 ? DD/ 2304 ? TD/TT: 08/26/24 2304 ? Concert Promoter: ? Procedure Note Luc Image - 08/26/[address] [address] [address] Scan Report Signed Patient: Terri Nicole#: [id number] 362 : 1995Acct:[id number] Age/Sex: 29 / FADM Date: 08/26/24 Loc: HO.ED Attending Dr: Ordering Physician: Vickie Soares DO Date of Service: 08/26/24 Procedure(s): CT angio chest PE protocol Accession Number(s): [id number] cc: Vannesa Roca MD; Vickie Soares DO Report Number: [id number]: Total DLP = 285.00 mGy-cm CLINICAL HISTORY: [...] in OV> 08/26/242304 DD/ 03 TD/TT: 08/26/242303 Concert Promoter: [facility] External Provider IMG CT PROCEDURES Final Result * B Type Natriuretic Peptide (BNP) (08/26/2024 9:17 PM EST) B Type Natriuretic Peptide 11 <100 pg/mL [facility] Comment:For those patients w ho are being treated with Natrecor(nesiritide, recombinant BNP), BNP testing should beperformed at least two hours post treatment in order toensure that only endogenous levels of BNP are detected. 08/26/2024 9:17 PM EST 08/26/2024 9:23 PM EST Generic External Data Provider LAB BLOOD ORDERAB LES Final Result Performing Organization Address [facility] Co de Phone Number [facility] [address] [place] [phone] * (ABNORMAL) High Sensitivity Troponin I (08/26/2024 9:17 PM EST) Pathologist [facility] TROPONIN I HIGH SENSITIVITY 400.3(HH) <3.5 - 17.0 ng/L [facility] Comment:Critical value for t est(s): TROP Results called to and readback by: KERON Person calling: SCIARROSAURA Date:08/26/24 Time: Wells high sensitivity Troponin-I results should beused in conjunction with other diagnostic information suchas ECG, clinical observations and information, and patientsymptoms to aid in the diagnosis of CO. 08/26/2024 9:17 PM EST 08/26/2024 9:23 PM EST Generic External Data Provider LAB BLOOD ORDERAB LES Final Result Performing Organization Address [facility] Co de Phone Number [facility] [address] [place] [phone] * Lactic Acid (08/26/2024 9:17 PM EST) [facility] Lactic Acid 1.0 0.5 - 2.0 mmol/L [facility] 08/26/2024 9:17 PM EST 08/26/2024 9:23 PM EST Generic External Data Provider LAB BLOOD ORDERAB LES Final Result Performing Organization Address [facility] Co de Phone Number [facility] [address] [place] [phone] * D Dimer High Sensitivity (08/26/2024 9:17 PM EST) Pathologist [facility] D Dimer High Sensitivity 165 NG/ML [facility] Comment:D-DIMER HS REFERENCE RANGENote: Our assay [...] Provider LAB BLOOD ORDERAB LES Final Result [facility] [address] [place] [phone] * XR Chest 2 Views (08/26/2024 7:27 PM EST) Anatomical Region Laterality Modality Chest Radiographic Amna ging 08/26/2024 7:27 PM EST Narrative 08/26/2024 7:29 PM EST ? [facility] ?[address] ?[place] [address] ?XRay Report ? Signed ? Patient: Jessica Nicole ?MR#: [id number] ?? 362 ? : 1995 ?Acct:[id number] ? Age/Sex: 29 / F ?ADM Date: 08/26/24 ? Loc: HO.ED ? Attending Dr: ? Ordering Physician: Nataly Richard ?? Date of Service: 08/26/24 ?? Procedure(s): XR chest 2V ?? Accession Number(s): [id number] ? cc: Vannesa Roca MD; Nataly Richard [...] ? DD/ 26 ? TD/TT: 08/26/241926 ? Concert Promoter: ? Procedure Note Donotuseinterpreter, Image - 08/26/2024 [facility] [address] [place] [address] XRay Report Signed Patient: Jessica NicoleMR#: [id number] 362 : 1995Acct:[id number] Age/Sex: 29 / FADM Date: 08/26/24 Loc: HO.ED Attending Dr: Ordering Physician: Nataly Richard Date of Service: 08/26/24 Procedure(s): XR chest 2V Accession Number(s): [id number] cc: Vannesa Roca MD; Nataly Richard CLINICAL [...] in OV> 08/26/241927 DD/ 26 TD/TT: 08/26/241926 Concert Promoter: [facility] External Provider IMG XR PROCEDURES Final Result * (ABNORMAL) Sed Rate by Modified Alexaren (08/26/2024 7:26 PM EST) Erythrocyte Sedimentation Rate 22(H) 0 - 20 MM/HR [facility] Comment:Patients with polycy themia and many hemoglobin abnormalitiesmay have depressed sed rates whereas patients with anemiamay have elevated sed rates. 08/26/2024 7:26 PM EST 08/26/2024 9:33 PM EST Generic External Data Provider LAB BLOOD ORDERAB LES Final Result [facility] [address] [place] [phone] [phone] * hCG, Total, Quantitative (08/26/2024 7:26 PM EST) HCG Quantitative <2 mIU/mL [facility] Comment:Weeks post LMP Appro ximate hCG(Last Menstrual Period) Range (mIU/ml)3 - 4 weeks 9 - 1304 - 5 weeks 75 - 2,6005 - 6 weeks 850 - 20,8006 - 7 weeks 4000 - 100,2007 - 12 weeks 11,500 - 289,80054 - 16 weeks 18,300 - 137,19743 - 29 weeks (2nd trimester) 1,400 - 53,05456 - 41 weeks (3rd trimester) 940 - [...] ORDERAB LES Final Result Performing Organization Address City/[facility]/ZIP Co de Phone Number [facility] [address] [place] [phone] * (ABNORMAL) C-reactive Protein (08/26/2024 7:26 PM EST) Pathologist [facility] C Reactive Protein 1.38(H) < or = 0.50 mg/dL [facility] 08/26/2024 7:26 PM EST 08/26/2024 7:31 PM EST Generic External Data Provider LAB BLOOD ORDERAB LES Final Result Performing Organization Address [facility] Co de Phone Number [facility] [address] [place] [phone] * SARS-CoV-2 RNA, Influenza A/B, and RSV RNA, Ql NAAT (08/26/2024 7:26 PM EST) Pathologist [facility] Influenza A PCR NEGATIVE Negative [facility] Influenza B PCR NEGATIVE Negative [facility] Resp Syncy Virus RNA Qual PCR NEGATIVE Negative [facility] SARS COV2 PCR NEGATIVE Negative [facility] Comment:All test results mus t [...] use by authorized laboratories.Testing performed on the [employer] GeneXpert utilizingreal-time RT-PCR.All SARS CoV2 and positive influenza A/B results arereported to [facility]. 08/26/2024 7:26 PM EST 08/26/2024 7:31 PM EST us Generic External Data Provider LAB MICROBIOLOGY - GENERAL ORDERABLES Final Result [facility] [address] [place] [phone] * (ABNORMAL) High Sensitivity Troponin I (08/26/2024 7:26 PM EST) Pathologist [facility] TROPONIN I HIGH SENSITIVITY 217.8(HH) <3.5 - 17.0 ng/L [facility] Comment:Critical value for t est(s): HS-TNL Results called to fletcher back by: ROXIE Person calling: [facility] Date: 08/26/24Time: 1999The [place] high sensitivity Troponin-I results should beused in conjunction with other diagnostic information suchas ECG, clinical observations and information, and patientsymptoms to aid in the diagnosis of CO. 08/26/2024 7:26 PM EST 08/26/2024 7:31 PM EST us Generic External Data Provider LAB BLOOD ORDERAB LES Final Result Performing Organization Address City/[facility]/ZIP Co de Phone Number [facility] [address] [place] [phone] * Magnesium (08/26/2024 7:26 PM EST) Magnesium 2.1 1.6 - 2.6 mg/dL [facility] 08/26/2024 7:26 PM EST 08/26/2024 7:31 PM EST Generic External Data Provider LAB BLOOD ORDERAB LES Final Result Performing Organization Address [facility] de Phone Number [facility] [address] [place] [phone] * Basic Metabolic Panel (08/26/2024 7:26 PM EST) Sodium 138 135 - 145 mmol/L [facility] Potassium 4.9 3.3 - 5.1 mmol/L [facility] Comment:Slight Hemolysis.Int erpret result with caution. Chloride 105 96 - 108 mmol/L [facility] Carbon Dioxide 25 22 - 29 mmol/L [facility] Anion Gap 13 12 - 20 [facility] Urea Nitrogen (BUN) 12 9 - 16 mg/dL [facility] Creatinine, Serum 0.70 0.5 - 1.4 mg/dL [facility] Creatinine Clr Calc Pharmacy 138.4 [facility] Comment:Provided height and weight: 170.18 cm,92.4 kg.eGFR (calculated from the MDRD study equation) and eCrCl(calculated from the Cockcroft-Gault equation) are based ondifferent parameters and may not yield comparable results.If eCrCl result is absurd, please check patient'sheight/weight. Estimated Glomerular Filt Rate >60 [facility] Comment:Chronic Kidney Disea se: Estimated GFR < 60 mL/min/1.92p3Stcqni Kidney Disease: Estimated GFR < 15 mL/min/1.73m2 Glucose 91 60 - 115 mg/dL [facility] Calcium 8.9 8.4 - 10.2 mg/dL [facility] 08/26/2024 7:26 PM EST 08/26/2024 7:31 PM EST Generic External Data Provider LAB BLOOD ORDERAB LES Final Result Performing Organization Address [facility] Phone Number [facility] [address] [place] [phone] * Hepatic Function Panel (08/26/2024 7:26 PM EST) Pathologist [facility] Bilirubin, Total 0.2 0.0 - 1.0 mg/dL [facility] Bilirubin, Direct <0.2 0.0 - 0.5 mg/dL [facility] Aspartate Amino Transferase 26 5 - 31 U/L [facility] Comment:Slight Hemolysis.Int erpret result with caution. Alanine Aminotransferase 30 0 - 31 U/L [facility] Total Protein 7.7 6.5 - 8.0 g/dL [facility] Albumin Level 4.0 3.5 - 5.0 g/dL [facility] Alkaline Phosphatase 82 39 - 117 U/L [facility] 08/26/2024 7:26 PM EST 08/26/2024 7:31 PM EST Generic External Data Provider LAB BLOOD ORDERAB LES Final Result Performing Organization Address [facility] Co de Phone Number [facility] [address] [place] [phone] * Strep A Nucleic Acid (08/26/2024 7:26 PM EST) [employer]NOW SERIAL# [id number] [facility] Strep A Nucleic Acid Negative Negative [facility] Comment:All test results mus t be correlated with clinical findings.This test has not been evaluated for monitoring treatment ofinfection.Additional follow-up testing using the culture method isrequired if the result is negative and clinical symptomspersist, or in the event of an acute rheumatic feveroutbreak. 08/26/2024 7:26 PM EST 08/26/2024 7:31 PM EST us Generic External Data Provider LAB MICROBIOLOGY - GENERAL ORDERABLES Final Result [facility] [address] [place] [phone] * (ABNORMAL) CBC auto differential (08/26/2024 7:26 PM EST) White Blood Count 7.4 4.8 - 10.8 X10*3/uL [facility] Red Blood Count 4.85 4.20 - 5.50 X10*6/uL [facility] Hemoglobin 13.6 12.0 - 16.0 g/dl [facility] Hematocrit 40.5 37.0 - 47.0 % [facility] Mean Corpuscular Volume 83.5 80.0 - 98.0 fL [facility] Mean Corpuscular Hemoglobin 28.0 27.0 - 33.0 pg [facility] Mean Corpuscular HGB Conc 33.6 31.0 - 35.0 g/dl [facility] Red Cell Distribution Width 12.5 11.0 - 16.0 % [facility] Platelet Count 348 160 - 400 X10*3/uL [facility] Mean Platelet Volume 9.1(L) 9.4 - 12.3 fL [facility] Neutrophils Percent Auto 69.1 45 - 73 % [facility] Imm Gran Pct Auto 0.3 0.0 - 0.4 % [facility] Lymphocytes Percent Auto 20.7 20 - 40 % [facility] Monocytes Percent Auto 5.2 2 - 11 % [facility] Eosinophils Percent Auto 4.2(H) 0 - 4 % [facility] Basophils Percent Auto 0.5 0 - 2 % [facility] NRBC Pct Auto 0.0 0.0 - 0.2 /100WBC [facility] Neutrophils Absolute Auto 5.1 2.0 - 8.3 x10*3/uL [facility] Imm Gran Abs Auto 0.02 0.00 - 0.03 X10*3/uL [facility] Lymphocytes Absolute Auto 1.5 1.2 - 4.9 X10*3/uL [facility] Monocytes Absolute Auto 0.4 0.1 - 1.2 X10*3/uL [facility] Eosinophils Absolute Auto 0.3 0.0 - 0.4 X10*3/uL [facility] Basophils Absolute Auto 0.0 0.0 - 0.2 X10*3/uL [facility] NRBC Abs Auto 0.000 0.0 - 0.012 X10*3/uL [facility] 08/26/2024 7:26 PM EST 08/26/2024 7:31 PM EST us Generic External Data Provider LAB BLOOD ORDERAB LES Final Result Performing Organization Address City/State/[facility] Co de Phone Number [facility] [address] [place] [phone] documented in this encounter Visit Diagnoses Not on filedocumented in this encounter Additional Health Concerns Assessment Noted Time PHQ-9 Depression Total Score: 13 04/24/2 024 3:33 PM EDT documented as of this encounter Care Teams Technical Coordinator Relationship Specialty Start Date End Date Ilda Andujar MD [address] [place] [phone] PCP - General Family Medicine 07/20/17 documented as of this encounter
--- OUTSIDE RECORDS SUMMARY | 2024-09-12 14:43 | XMS_ITS | Encounter Summary ---
Author Organization [employer] Address [address] 7t [place] [address] Care Team Providers Care Fish And Wildlife Technician Name Role Phone Ilda Andujar MD Primary Care Provider [phone]- [phone] Pankaj Lopez MD Unavailable Encounter Details Date Type Department Care Team (Late Contact Info) Description 11/15/2022 Abstract [facility] MEDICINE [address] [place] [phone] Ilda Andujar MD [address] [place] [phone] Social History Tobacco Use Types Packs/Day Years Used Date Smoking Tobacco: Never Smokeless Tobacco: Never Tobacco Cessation:Counseling Given: Not Answered Alcohol Use Standard Drinks/Week Comments Never 0 (1 standard drink = 0.6 oz pur e alcohol) Sex and Gender Information Value Date Recorded Sex Assigned at Male 06/06/2022 10:14 AM EDT Legal Sex Female 10:14 AM EDT Gender Identity Female 10/16/2023 10:06 AM EDT Sexual Orientation Choose not to disclose 2021 10:14 AM EDT COVID-19 Exposure Response Date Recorded In the last 10 days, have yo u been in contact with someone who was confirmed or suspected to have Coronavirus/COVID-19? No / Unsure 11/16/2022 10:45 AM EDT documented as of this encounter Plan of Treatment Upcoming Encounters Date Type Department Care Team ([facility] Contact Info) Description 09/18/2024 9:00 AM EST Office Visit [facility] MED[facility] [address] [place] [phone] Ilda Andujar MD [address] [place] [address] 10/03/2024 2:00 PM EST Office Visit [facility] ADULT DENTAL [address] [facility] [place] [address] Bre Van documented as of this encounter Procedures Procedure Name Priority Date/Time Associated Diagnosis Comments HIV-1 ANTIBODY, EIA Routine 01/16/2017 LIPID PANEL, STANDARD Routine 01/16/2017 documented in this encounter Results * HIV-1 antibody, EIA (01/16/2017) External HIV-1 Antibody Negative Blood Venous blood specimen / Unknown us Historical Provider LAB BLOOD ORDERABLES Lou l Result * Lipid Panel, Standard (01/16/2017) Triglycerides 62 40 - 160 mg/dL Cholesterol 168 0 - 200 mg/dL HDL Cholesterol 39 35 - 70 mg/dL LDL Cholesterol 111 mg/dL Blood Venous blood specimen / Unknown Historical Provider LAB BLOOD ORDERABLES Lou l Result documented in this encounter Visit Diagnoses Not on filedocumented in this encounter Care Teams Fish And Wildlife Technician Relationship Specialty Start Date End Date Ilda Andujar MD [address] [facility] [place] [address] PCP - General Family Medicine 07/20/17 Pankaj Lopez MD [address]rd [place] [address] Cardiology 08/27/24 documented as of this encounter
--- OUTSIDE RECORDS SUMMARY | 2024-09-12 14:43 | XMS_ITS | Encounter Summary ---
Author Organization [employer] Address [address] [place] [address] Care Team Providers Care Textbook Associate Name Role Phone Ilda Andujar MD Primary Care Provider +1- [phone] Pankaj Lopez MD Unavailable Encounter Details Date Type Department Care Team (Late st Contact Info) Description 07/05/2023 Abstract [facility] MEDICINE [address] [place], [place] [phone] Kaycee Ribeiro Social History Tobacco Use Types Packs/Day Years Used Date Smoking Tobacco: Never Passive Smoke Exposure: Never Smokeless Tobacco: Never Alcohol Use Standard Drinks/Week Comments Yes 0 (1 standard drink = 0.6 oz pur e alcohol) social Depression Answer Date Recorded Patient Health Questionnaire-9 Score 3 04/19/2023 Housing Stability Answer Date Recorded What is your housing situation today? I have leonaalonzo valencia 05/30/[address] you [...] Answer Date Recorded Patient Health Questionnaire-2 Score 2 04/19/2023 Sex and Gender Information Value Date Recorded [...] Description 09/18/2024 9:00 AM EST Office Visit [facility] [address] [place] [address] Ilda Andujar MD [address] [place] [phone] 10/03/2024 2:00 PM EST Office Visit [facility] ADULT DENTAL [address] [place] [address] Bre Van documented as of this encounter Visit Diagnoses Not on filedocumented in this encounter Additional Health Concerns Assessment Noted Time PHQ-9 Depression Total Score: 3 04/19/20 23 10:58 AM EDT documented as of this encounter Care Teams Textbook Associate Relationship Specialty Start Date End Date Ilda Andujar MD [address] [place] [phone] PCP - General Family Medicine 07/20/17 Pankaj Lopez MD [address] [place] [address] 3rd [place] [address] Cardiology 08/27/24 documented as of this encounter
--- OUTSIDE RECORDS SUMMARY | 2024-09-12 14:44 | XMS_ITS | Encounter Summary ---
Author Organization [employer] Address [address] [place] [address] Care Team Providers Care Double Head Machine Operator Name Role Phone Ilda Andujar MD Primary Care Provider +1- [phone] Pankaj Lopez MD Unavailable Reason for Visit * Reason Onset Date Comments Chart Prep 09/09/2024 Encounter Details Date Type Department Care Team ([facility] st Contact Info) Description 09/09/2024 Telephone [facility] [address] [place], [place] [phone] Ilda Andujar MD [address] [place], [place] [phone] Chart Prep Social History Tobacco Use Types Packs/Day Years [...] Encounter - Korin Marcelo [place] - 09/09/2024 9:02 AM EST Chart Prep Labs: done Images: not applicable Vaccines due: Updated Referrals: Not Applicable Screenings: Not Applicable Overdue care gaps: SDOH and Oral Health Chart prep for upcoming appt with complete. LB documented in this encounter Plan of Treatment Upcoming Encounters Date Type Department Care Team (Late st Contact Info) Description 09/18/2024 9:00 AM EST Office Visit [facility] [address] [place] [address] Ilda Andujar MD [address] [place] [address] 10/03/2024 2:00 PM EST Office Visit [facility] ADULT DENTAL [address] [place] [address] Bre Van documented as of this encounter Visit Diagnoses Not on filedocumented in this encounter Additional Health Concerns Assessment Noted Time PHQ-9 Depression Total Score: 13 024 3:33 PM EDT documented as of this encounter Care Teams Double Head Machine Operator Relationship Specialty Start Date End Date Ilda Andujar MD [address] [place] [phone] PCP - General Family Medicine 07/20/17 Pankaj Lopez MD [address] [place] [address] 3rd [place] [address] Cardiology 08/27/24 documented as of this encounter
--- OUTSIDE RECORDS SUMMARY | 2024-09-12 14:44 | XMS_ITS | Encounter Summary ---
Author Organization [employer] Address 75 [facility] 7t [place] [address] Care Team Providers Care Buttonhole Tacker Name Role Phone Ilda Andujar MD Primary Care Provider [phone] Pankaj Lopez MD Unavailable Reason for Referral * Consultation (Routine) - Authorized Specialty Diagnoses / Procedures Referred By Contac t Referred To Contact Hematology and Oncology Diagnoses Gender dysphoria NSTEMI (non-ST elevated myocardial infarction) (CMS/HCC) Ilda Andujar MD [address] [place] [address] Phone: tel: fax: [facility] Referral ID Status Reason Start Date Expiration Date Visits Requested Visits Authorized [id number] Authorized Specialty Services Required 09/11/2024 09/11/2025 6 6 Reason for Visit * Reason Comments Follow-up Ear infection Encounter Details Date Type Department Care Team (Late st Contact Info) Description 09/09/2024 11:00 AM EST Office Visit [facility] [address] [place] [address] Ilda Andujar MD [address] [place], [place] [phone] NSTEMI (non-ST elevated myocardial infarction) (CMS/HCC) (Primary Dx); Gender dysphoria; Autistic behavior; Mild intermittent asthma without complication; Class 1 obesity due to excess calories without serious comorbidity with body mass index (BMI) of 31.0 to 31.9 in adult; Dietary counseling; Exercise counseling; Other specified health status Social History Tobacco Use Types Packs/Day Years [...] Sign Reading Time Taken Comments Blood Pressure 110/70 09/09/2024 11:43 AM EST Pulse 90 09/09/2024 11:01 AM [...] Mass Index 31.95 09/09/2024 11:01 AM EST documented in this encounter Progress Notes * Ilda Andujar MD - 09/09/2024 11:00 AM EST Subjective Patient ID: Jessica Nicole is a 29 y.o. adult with past medical history of Autistic behavior, Mildintermittent asthma, Depression and Gender dysphoria who presents for recent otitis externa, resolved and hospitalization for NSTEMI. NSTEMI 08/27/24, Per carbonation equipment tender Dr. Lopez, Patient without any significant risk [...] the RCA territory on echocardiogram Transferred to [facility]. -in [facility] troponin peaked at 73. EKG without ST [...] x months (started 08/30/24 -follow up cardiology Review of Systems Constitutional: Negative for fatigue, fever and unexpected weight change. Respiratory: Negative for cough. Cardiovascular: Negative for chest pain. Gastrointestinal: Negative for abdominal pain. Genitourinary: Negative for difficulty urinating. Objective Visit Vitals BP 110/70 Pulse 90 Temp 96.7 ??F (35.9 ??C) (Oral) Resp 20 Body mass index is 31.95 kg/m??. Physical Exam Constitutional: Appearance: Normal appearance. Cardiovascular: Rate and Rhythm: Normal rate and regular rhythm. Heart sounds: Normal heart sounds. Pulmonary: Effort: Pulmonary effort is normal. Breath sounds: Normal breath sounds. Abdominal: General: Abdomen is flat. Palpations: Abdomen is soft. Tenderness: There is no abdominal tenderness. Musculoskeletal: Cervical back: Normal range of motion and neck supple. Lymphadenopathy: Cervical: No cervical adenopathy. Skin: General: Skin is warm and dry. Neurological: Mental Status: Mental status is at baseline. Psychiatric: Behavior: Behavior normal. Problem List Items Addressed This Visit NSTEMI (non-ST elevated myocardial infarction) (CMS/HCC) - Primary NSTEMI 08/27/24, Per carbonation equipment tender Dr. Lopez, Patient without any significant risk [...] the RCA territory on echocardiogram Transferred to [facility]. -in [facility] troponin peaked at 73. EKG without ST [...] x months (started 08/30/24 -follow up cardiology Relevant Medications aspirin 81 MG EC tablet atorvastatin (Lipitor) 40 MG tablet colchicine 0.6 MG tablet Other Relevant Orders Referral to Hematology / Oncology Gender dysphoria -Pt uses she/her pronouns -Has been on medication but declines at this time due to difficulties taking medications -Given the number for [employer] for hair removal [phone] on 10/16/2023 - Given a list of [...] estradiol patches for safer side effect profile. Relevant Orders Referral to Hematology / Oncology Autistic behavior Mild intermittent asthma Class 1 obesity due to excess calories without serious comorbidity with body mass index (BMI) of 31.0 to 31.9 in adult Dietary counseling Exercise counseling Other specified health status No follow-ups on file. I, Sukhdev Rm, am serving as a scribe to document services personally performed by Dr. Pettit, based on the patient's response to questions by provider and providers statements to me. documented in this encounter Miscellaneous Notes * Assessment & Plan Note - Ilda Andujar MD - 09/09/2024 2:23 PM EST Associated Problem(s): Gender dysphoria -Pt uses she/her pronouns -Has been on medication but declines at this time due to difficulties taking medications -Given the number for [employer] for hair removal [phone] on 10/16/2023 - Given a list of [...] estradiol patches for safer side effect profile. * Assessment & Plan Note - Ilda Andujar MD - 09/09/2024 2:22 PM EST Associated Problem(s): NSTEMI (non-ST elevated myocardial infarction) (CMS/HCC) NSTEMI 08/27/24, Per carbonation equipment tender Dr. Lopez, Patient without any significant risk [...] the RCA territory on echocardiogram Transferred to [facility]. -in [facility] troponin peaked at 73. EKG without ST [...] x months (started 08/30/24 -follow up cardiology documented in this encounter Plan of Treatment Upcoming Encounters Date Type Department Care Team (Late st Contact Info) Description 09/18/2024 9:00 AM EST Office Visit [facility] [address] [place] [address] Ilda Andujar MD [address] [place] [address] 10/03/2024 2:00 PM EST Office Visit [facility] [address] [place] [address] Bre Van Scheduled Referrals Name Type Priority Associated Diagnoses Order Schedule Referral to Hematology / Oncology Outpatient Referral Routine Gender dysphoria NSTEMI (non-ST elevated myocardial infarction) (CMS/HCC) Expected: 09/09/2024 (Approximate), Expires: 09/09/2025 documented as of this encounter Visit Diagnoses Diagnosis NSTEMI (non-ST elevated myocardial infarction) ([facility])- Primary Acute myocardial infarction, subendocardial infarction, episode of care unspecified Gender dysphoria Autistic behavior Mild intermittent asthma without complication Class 1 obesity due to excess calories without serious comorbidity with body mass index (BMI) of 31.0 to 31.9 in adult Dietary counseling Dietary surveillance and counseling Exercise counseling Other specified health status documented in this encounter Additional Health Concerns Assessment Noted Time PHQ-9 Depression Total Score: 13 024 3:33 PM EDT documented as of this encounter Care Teams Buttonhole Tacker Relationship Specialty Start Date End Date Pratima, MD Ilda [address] [place] [address] PCP - General Family Medicine 07/20/17 Pankaj Lopez MD [address] [place] [address] [address] [place] [address] Cardiology 08/27/24 documented as of this encounter
[2024-09-12 14:47] LABS: Basophils Percent Auto 0.2 % (0-2); Eosinophils Absolute Auto 0.1 X10*3/uL (0.0-0.4); Eosinophils Percent Auto 0.7 % (0-4); Hematocrit 39.5 % (37.0-47.0); Hemoglobin 13.6 g/dl (12.0-16.0); Imm Gran Abs Auto 0.05 X10*3/uL (0.00-0.03); Imm Gran Pct Auto 0.4 % (0.0-0.4); Lymphocytes Absolute Auto 1.1 X10*3/uL (1.2-4.9); Lymphocytes Percent Auto 9.4 % (20-40); MANUAL DIFF FLAG NO; Mean Corpuscular HGB Conc 34.4 g/dl (31.0-35.0); Mean Corpuscular Hemoglobin 27.8 pg (27.0-33.0); Mean Corpuscular Volume 80.8 fL (80.0-98.0); Monocytes Absolute Auto 0.6 X10*3/uL (0.1-1.2); Monocytes Percent Auto 4.8 % (2-11); Neutrophils Absolute Auto 9.8 x10*3/uL (2.0-8.3); Neutrophils Percent Auto 84.5 % (45-73); Platelet Count 290 X10*3/uL (160-400); Red Blood Count 4.89 X10*6/uL (4.20-5.50); Red Cell Distribution Width 12.9 % (11.0-16.0); White Blood Count 11.6 X10*3/uL (4.8-10.8)
[2024-09-12 14:55] LABS: INTERNATIONAL NORM RATIO 1.6 (0.9-1.1); Prothrombin Time 19.2 SEC (10.9-12.4)
[2024-09-12 14:58] LABS: Partial Thromboplastin Time 24.8 SEC (26.0-36.8)
[2024-09-12 15:07] LABS: Albumin Level 4.4 g/dL (3.5-5.0); Alkaline Phosphatase 85 U/L (39-117); Anion Gap 12 (12-20); Aspartate Amino Transferase 17 U/L (5-31); Bilirubin Direct 0.5 mg/dL (0.0-0.5); Bilirubin Total 1.3 mg/dL (0.0-1.0); Blood Urea Nitrogen 9 mg/dL (9-16); Calcium 9.4 mg/dL (8.4-10.2); Carbon Dioxide 20 mmol/L (22-29); Chloride 105 mmol/L (96-108); Creatinine Clr Calc Pharmacy 119.9; Estimated Glomerular Filt Rate > 60; Glucose Random 136 mg/dL (60-115); Magnesium 1.7 mg/dL (1.6-2.6); Potassium 3.4 mmol/L (3.3-5.1); Sodium 134 mmol/L (135-145); Total Protein 7.9 g/dL (6.5-8.0)
[2024-09-12 15:09] LABS: Troponin-I High Sensitivity < 2.7 ng/L (<3.5-17.0)
[2024-09-12 15:20] LABS: Alanine Aminotransferase 38 U/L (0-31)
[2024-09-12 15:25] LABS: Influenza A PCR NEGATIVE (Negative); Influenza B PCR NEGATIVE (Negative); Resp Syncy Virus RNA Qual PCR NEGATIVE (Negative); SARS COV2 PCR INHOUSE NEGATIVE (Negative)
[2024-09-12] MEDS: dexAMETHasone sod phosphate 4 MG/ML VIAL 8 MG IVPUSH (15:58)
[2024-09-12] MEDS: Ketorolac Tromethamine 30 MG/ML VIAL IVPUSH (15:58)
[2024-09-12] MEDS: 0.9 % Sodium Chloride 1,000 ML 999 ML IV (15:59)
[2024-09-12] MEDS: Lidocaine HCl Viscous 2 % 15 ML SOLUTION MUCOUS MEM (15:59)
[2024-09-12 17:29] VITALS: BP 112/65; PULSE 101; RESP 20; TEMP 37.4; O2SAT 97
[2024-09-12 18:13] VITALS: BP 112/65; PULSE 101; RESP 20; TEMP 37.4; O2SAT 97
== END 2024-09-12 18:27 | disposition home or self-care (01) ==
PROVIDERS: Physician Assistant; Emergency Provider Emergency Medicine; PCP Internal Medicine
DX: R06.02 Shortness of breath (principal); J45.909 Unspecified asthma, uncomplicated; R00.0 Tachycardia, unspecified; F41.9 Anxiety disorder, unspecified; Z79.899 Other long term (current) drug therapy; Z03.818 Encounter for observation for suspected exposure to other biological agents ruled out
CPT/HCPCS: 0241U; 36415; 71045; 80048; 80076; 83735; 84484; 85025; 85610; 85730; 93005; 96374; 96375; 99284; 99285; J1100; J1885

== ENCOUNTER → 2024-09-12 14:02 | Outpatient (BNV) | payer MEDICAID, SELFPAY | PROVIDERS: Emergency Provider Emergency Medicine; PCP Internal Medicine; Visit Provider Internal Medicine Cardiovascular Disease | DX: R94.31 Abnormal electrocardiogram [ECG] [EKG] (principal) | CPT/HCPCS: 93010 ==

== ENCOUNTER → 2024-09-12 14:03 | Outpatient (BNV) | payer MEDICAID, SELFPAY | PROVIDERS: Emergency Provider Emergency Medicine; PCP Internal Medicine; Visit Provider Radiology Diagnostic Radiology | DX: R06.02 Shortness of breath (principal) | CPT/HCPCS: 71045 ==

== ENCOUNTER → 2024-10-15 13:07 | Outpatient (BNV) | payer MEDICAID, SELFPAY | PROVIDERS: PCP Family Medicine; Referring Provider Family Medicine; Visit Provider Internal Medicine Medical Oncology | DX: D68.59 Other primary thrombophilia (principal) | CPT/HCPCS: 99204 ==

== ENCOUNTER 2024-10-30 11:52 | Outpatient (AMB) | payer MEDICAID, SELFPAY ==
--- NOTE | 2024-10-30 13:13 | MHC.OFFVIS ---
Vital Signs 10/30/24 13:14 Height 5 ft 7 in Weight 200 lb 9.93 oz BMI 31.4 BP 110/70 Blood Pressure Location Lt brachial Position Sitting Pulse 84 Pulse Source Pulse Oximeter Intake Visit Reasons: follow up s/p Cardiac cath (NS) Kier Pleater Required: No Accompanied by: Self / Same As Patient Allergies No Known Allergies Allergy (Verified 10/15/24 13:23) Medication List - Last Reconciled 10/30/24 by Jarad Soria NP acetaminophen 325 mg PO DAILY PRN albuterol sulfate 90 mcg/actuation (Ventolin HFA) 2 puffs inhalation Q4H PRN aspirin 81 mg PO DAILY atorvastatin 40 mg PO DAILY ibuprofen 400 mg PO DAILY PRN HPI Comments Details: This is a 29-year-old trans male presenting for a follow-up visit. Patient has a history of undergoing gender transition which she started in 2018 and could not finish it for unclear reasons. However she was hospitalized in August for acute chest pain with elevated troponins. The patient reports that the chest discomfort with a it is radiation to the neck started after completing a course of antibiotics following to distraction. During the hospitalization, the patient was treated with IV heparin and transferred to [facility] for cardiac catheterization with Dr. Smith. The patient missed up the follow-up appointment after discharge. Today the patient reports feeling well overall and denies any exertional chest pain, shortness of breath, palpitations, dizziness, fatigue, orthopnea, PND, leg edema, presyncope, or syncope. The patient reports being compliant with all the medications. [facility] Medical History [id number] transgender person Surgical History History of cardiac cath Family History Other No pertinent family history Social History Household Members: Other Household Members Other:: mother Housing: Apartment Do you presently have visiting nurse or other home services: No Alcohol intake: current Alcohol intake frequency: holidays/special occasions only Patient Tobacco Use Status: Never used Tobacco service: No Review of Systems Const Denies chills, Denies fatigue, Denies fever(s), Denies weight gain and Denies weight loss ENT Denies dizziness Card Denies chest pain, Denies leg edema, Denies lightheadedness, Denies palpitations, Denies dyspnea on exertion, Denies orthopnea and Denies other Resp Denies cough and Denies dyspnea on exertion GI Denies hematochezia and Denies change in stool character Musc Denies abnormal gait, Denies muscle weakness, Denies numbness, Denies radiating pain into limb and Denies tingling Neuro Denies abnormal gait, Denies dizziness, Denies numbness and Denies tingling Endo Denies fatigue and Denies palpitations Physical Exam Vital Signs: Last Vital Signs Pulse 84 10/30/24 13:14 BP 110/70 10/30/24 13:14 BMI result Body Mass Index 31.4 Const General: cooperative, healthy appearing, comfortable and no acute distress Orientation/consciousness: patient oriented x3 HEENT Head: Yes normal to inspection Neck Neck: Yes normal visual inspection, Yes trachea midline and Yes supple Chest Chest palpation & inspection: normal inspection of the chest Resp Effort & Inspection: normal respiratory effort Auscultation: clear to auscultation bilaterally, no crackles, no rales, no rhonchi and no wheezes Cardio Jugular venous distension: no JVD Palpation: normal PMI Rate: regular rate Rhythm: regular rhythm Heart sounds: S1 normal heart sound present, S2 normal heart sound present, no click, no gallops, no murmurs and no rubs Peripheral pulses: Peripheral pulses 2+ throughout GI Inspection: Yes normal to inspection Palpation (GI): Soft to palpation Auscultation: normal bowel sounds Skin General skin exam: no rashes or lesions noted Neuro General: patient oriented x3 Extrem General: Yes normal to inspection, No no pedal edema and No calf tenderness Psych Appearance: grossly normal Mental Status: mental status grossly normal Speech and movement: Normal speech and movement present Assessment & Plan Assessment & Plan (1) NSTEMI (non-ST elevated myocardial infarction): Code(s): I21.4 - Non-ST elevation (NSTEMI) myocardial infarction Category: Medical (2) Status post cardiac catheterization: Code(s): Z98.890 - Other specified postprocedural states Category: Medical (3) Hospital discharge follow-up: Code(s): Z09 - Encounter for follow-up examination after completed treatment for conditions other than malignant neoplasm Category: Medical Plan 08/27/2024-patient's echocardiogram showed a normal LV EF between 55-60% with regional wall motion abnormality in the RCA territory. 08/29/2024-patient underwent a cardiac catheterization with Dr. Valdez through the at [facility] that showed no significant coronary artery disease. Minimal stenosis in the proximal LAD. Continue aspirin therapy. No reported signs of bleeding. Right wrist catheterization site is well healed. Continue statin therapy, with the LDL goal less than 70. We will check labs periodically. Blood pressure within normal range. Ideally, blood pressure less than 130/80. Per recommendation, we will obtain a cardiac MRI to look for further evaluate the myocardial injury. Further treatment based on findings. Advised heart healthy diet, regular exercise, losing weight, and management of vascular risk factors. We will follow up with the patient in 6 months. In the interim, patient will call us with any concerns or change in symptoms. Advised patient to seek ER care in case of exertional chest pain not resolved with rest. This note was generated using voice recognition software. While every effort has been made to ensure accuracy and proper carbon paper coating machine setter, there may be occasional errors that could affect the content or meaning of the described symptoms. Orders: Orders CA echo transthoracic complete 6 Months I21.4 - Non-ST elevation (NSTEMI) myocardial infarction Basic Metabolic Panel 4 Months I21.4 - Non-ST elevation (NSTEMI) myocardial infarction Liver Panel 4 Months I21.4 - Non-ST elevation (NSTEMI) myocardial infarction Basic Metabolic Panel Today I21.4 - Non-ST elevation (NSTEMI) myocardial infarction MR cardiac morph fnct w con Today I21.4 - Non-ST elevation (NSTEMI) myocardial infarction Lipid Panel 4 Months I21.4 - Non-ST elevation (NSTEMI) myocardial infarction Coding Level of Care Code Est Pt Level 4 (47772) Complex EM visit Add On G2211 Diagnoses NSTEMI (non-ST elevated myocardial infarction) I21.4 Status post cardiac catheterization Z98.890 Hospital discharge follow-up Z09 Time Spent (min) 35 Comment Time spent in reviewing the chart, test results, assessment, counseling and documentation.
[2024-10-30 13:14] VITALS: BP 110/70; PULSE 84; BMI 31.4
--- OUTSIDE RECORDS SUMMARY | 2024-10-30 14:21 | XMS_ITS | Encounter Summary ---
Author Organization [employer] Address [address] [facility] [address] [place] [address] Care Team Providers Care Tile And Mottle Supervisor Name Role Phone Ilda Andujar MD Primary Care Provider [phone] Pankaj Lopez MD Unavailable Glenn Baptiste MD Unavailable [phone] Encounter Details Date Type Department Care Team (Late st Contact Info) Description 11/15/2022 Abstract [facility] [address] [place] [address] Ilda Andujar MD [address] [place] [address] Social History Tobacco Use Types Packs/Day Years [...] Encounters Date Type Department Care Team (Late Contact Info) Description 11/18/2024 11:00 AM EDT Office Visit [facility] [address] [place] [address] Bre Van 01/20/2025 10:30 AM EDT Office Visit [facility] [address] [place] [address] Ilda Andujar MD [address] [place] [address] documented as of this encounter Procedures Procedure Name Priority Date/Time Associated Diagnosis Comments HIV-1 ANTIBODY, EIA Routine 01/16/2017 LIPID PANEL, STANDARD Routine 01/16/2017 documented in this encounter Results * HIV-1 antibody, EIA (01/16/2017) Pathologist [facility] External HIV-1 Antibody Negative Blood Venous blood specimen / Unknown Historical Provider LAB BLOOD ORDERABLES Lou l Result * Lipid Panel, Standard (01/16/2017) Pathologist [facility] Triglycerides 62 40 - 160 mg/dL Cholesterol 168 0 - 200 mg/dL HDL Cholesterol 39 35 - 70 mg/dL LDL Cholesterol 111 mg/dL Blood Venous blood specimen / Unknown Historical Provider LAB BLOOD ORDERABLES Lou l Result documented in this encounter Visit Diagnoses Not on filedocumented in this encounter Care Teams Tile And Mottle Supervisor Relationship Specialty Start Date End Date Ilda Andujar MD [address] [place] [address] PCP - General Family Medicine 07/20/17 Pankaj Lopez MD [address] [facility] 3rd [place] [address] Cardiology 08/27/24 Glenn Baptiste MD [address] [place] [address] Hematology and Oncology 10/18/[address] [facility] [place] Psychology 10/18/24 Shani Rodríguez [place], [place] Psychiatry 10/18/24 documented as of this encounter
--- OUTSIDE RECORDS SUMMARY | 2024-10-30 14:21 | XMS_ITS | Encounter Summary ---
Author Organization [employer] Address [address] [facility] [address] 7[address] [place] [address] Care Team Providers Care Measurement Advisor Name Role Phone Ilda Andujar MD Primary Care Provider [phone] Pankaj Lopez MD Unavailable Glenn Baptiste MD Unavailable [phone] Encounter Details Date Type Department Care Team (Late st Contact Info) Description 07/05/2023 Abstract [facility] [address] [place], [place] [phone] Kaycee Ribeiro Social History Tobacco Use Types [...] the past 12 months, has t he [employer], oil or water company threatened to shut [...] Care Team (Late st Contact Info) Description 11/18/2024 11:00 AM EDT Office Visit [facility] [address] [place] [address] Bre Van 01/20/2025 10:30 AM EDT Office Visit [facility] [address] [place] [address] Ilda Andujar MD [address] [place] [address] documented as of this encounter Visit Diagnoses Not on filedocumented in this encounter Additional Health Concerns Assessment Noted Time PHQ-9 Depression Total Score: 3 04/19/20 23 10:58 AM EDT documented as of this encounter Care Teams Measurement Advisor Relationship Specialty Start Date End Date Ilda Andujar MD [address] [place] [address] PCP - General Family Medicine 07/20/17 Pankaj Lopez MD [address] [place] [address] 3rd [place] [address] Cardiology 08/27/24 Glenn Baptiste MD [address] [place] [address] Hematology and Oncology 10/18/24 Tg Bernstein [facility] Psychology 10/18/24 Shani Rodríguez [place], [place] Psychiatry 10/18/24 documented as of this encounter
--- OUTSIDE RECORDS SUMMARY | 2024-10-30 14:21 | XMS_ITS | Encounter Summary ---
Author Organization [employer] Address [address] [facility] [address] 7t [place] [address] Care Team Providers Care Clothes Separator Name Role Phone [place]Ilda montiel MD Primary Care Provider [phone] Pankaj Lopez MD Unavailable Glenn Baptiste MD Unavailable [phone] Reason for Visit * Reason Onset Date Comments rs appt 08/01/2024 Encounter Details Date Type Department Care Team ([facility] st Contact Info) Description 08/01/2024 Telephone [facility] [address] [place] [address] Pretty Aguillonanpreet [address] [place], [place] [phone] rs appt Social History Tobacco Use Types [...] Description 11/18/2024 11:00 AM EDT Office Visit [facility] [address] [place] [address] Bre Van 01/20/2025 10:30 AM EDT Office Visit [facility] [address] [place] [address] Ilda Andujar MD [address] [place] [address] documented as of this encounter Visit Diagnoses Not on filedocumented in this encounter Additional Health Concerns Assessment Noted Time PHQ-9 Depression Total Score: 13 024 3:33 PM EDT documented as of this encounter Care Teams Clothes Separator Relationship Specialty Start Date End Date Ilda Andujar MD [address] [place] [address] PCP - General Family Medicine 07/20/17 Pankaj Lopez MD [address] [place] [address] 3rd [place] [address] Cardiology 08/27/24 Glenn Baptiste MD [address] [place] [address] Hematology and Oncology 10/18/24 Tg Bernstein [facility] Psychology 10/18/24 Shani Rodríguez [place], [place] Psychiatry 10/18/24 documented as of this encounter
--- OUTSIDE RECORDS SUMMARY | 2024-10-30 14:21 | XMS_ITS | Encounter Summary ---
Author Organization [employer] Address [address] [facility] [address] 7t [place] [address] Care Team Providers Care Supervisor Dials Name Role Phone Ilda Andujar MD Primary Care Provider [phone] Pankaj Lopez MD Unavailable Glenn Baptiste MD Unavailable [phone] Encounter Details Date Type Department Care Team (Latest Contact Info) Description 10/18/2024 Travel Social History Tobacco Use Types Packs/Day [...] Answer Date Recorded Patient Health Questionnaire-9 Score 2 10/18/2024 Patient Health Questionnaire-9 Score 2 10/18/2024 Last PHQ-9: Questionnaire Data Not on file 0 10/18/2024 Housing Stability Answer Date Recorded What is your housing situation today? I have leona valencia 10/18/[address] you li ve. Do you have problems with any of the following? None of the above 10/18/2024 Food Insecurity Answer Date Recorded Within the past 12 months, y ou worried that your food would run out before you got money to buy more: Never True 10/18/2024 Within the past 12 months,th e food you bought just didn't last and you didn't have enough money to get more: Never True Transportation Answer Date Recorded In the past 12 months, has l ack of transportation kept you from medical appts, meetings, work or from getting things needed for daily living? No 10/18/2024 Utilities Answer Date Recorded In the past 12 months, has t he electric, gas, oil or water company threatened to shut off services in your home? No 10/18/2024 Depression Answer Date Recorded Patient Health Questionnaire-2 Score 1 10/18/2024 Internet Access Answer Date Recorded Internet Access Q1 Yes 10/18/2024 Internet Access Q2 Not on file 10/18/2024 Sex and Gender Information Value Date Recorded [...] Description 11/18/2024 11:00 AM EDT Office Visit [facility] [address] [place] [address] Bre Van 01/20/2025 10:30 AM EDT Office Visit [facility] [address] [place] [address] Ilda Andujar MD [address] [place] [address] documented as of this encounter Visit Diagnoses Not on filedocumented in this encounter Additional Health Concerns Assessment Noted Time PHQ-9 Depression Total Score: 2 10/19/19 25 9:59 AM EDT documented as of this encounter Care Teams Supervisor Dials Relationship Specialty Start Date End Date Ilda Andujar MD [address] [place] [address] PCP - General Family Medicine 07/20/17 Pankaj Lopez MD [address] [place] [address] 3rd [place] [address] Cardiology 08/27/24 Glenn Baptiste MD [address] [place] [address] Hematology and Oncology 10/18/24 Tg Bernstein [facility] [place] Psychology 10/18/24 Shani Rodríguez [place], [place] Psychiatry 10/18/24 documented as of this encounter
--- OUTSIDE RECORDS SUMMARY | 2024-10-30 14:21 | XMS_ITS | Encounter Summary ---
Author Organization [employer] Address [address] [place] [address] Care Team Providers Care Senior Media Director Name Role Phone Ilda Andujar MD Primary Care Provider [phone] Pankaj Lopez MD Unavailable Glenn Baptiste MD Unavailable [phone] Reason for Visit * Reason Comments Hospital Follow-up admitted 08/27/2024- Dx HTN Encounter Details Date Type Department Care Team (Late st Contact Info) Description 10/18/2024 10:00 AM EDT Office Visit [facility] MED[facility] [address], [place] [phone] Ilda Andujar MD [address], [place] [phone] NSTEMI (non-ST elevated myocardial infarction) (CMS/HCC) (Primary Dx); Gender dysphoria; Post traumatic stress disorder (PTSD); Depressive disorder; Social anxiety disorder; Autistic behavior; Class 1 obesity due to excess calories [...] Sign Reading Time Taken Comments Blood Pressure 131/84 10/18/2024 10:02 AM EDT Pulse 87 10/18/2024 10:02 AM EDT Temperature 36.1 ??C (96.9 ??F) 10/18/2024 1 0:02 AM EDT Respiratory Rate 20 10/18/2024 10:0 2 AM EDT Oxygen Saturation 98% 10/18/2024 10: 02 AM EDT Inhaled Oxygen Concentration - - Weight 91.1 kg (200 lb 12.8 oz) 025 10:02 AM EDT Height 170.2 cm (5' 7 ) 10/18/2024 10:0 2 AM EDT Body Mass Index 31.45 10/18/2024 10:02 AM EDT documented in this encounter Progress Notes * Ilda Andujar MD - 10/18/2024 10:00 AM EDT Dania Lopez is a 29 y.o. adult with past medical history of NSTEMI, Autistic behavior, Mild intermittent asthma, Depression and Gender dysphoria who presents to the office today for hospital follow-up, chronic medical conditions and comprehensive annual evaluation. [facility] (08/26/2024 - 08/27/2024) Patient presented with chest pain radiating to the jaw. Troponin levels were found to be elevated, with a peak of 650 ng/L. Cardiology was consulted and recommended admission. The patient was startedon Lovenox 1 mg/kg as a single dose and then transitioned to IV heparin. In addition to parenteral a nticoagulation, the patient was treated with aspirin, statin therapy, and beta blockers. An echocardiogram revealed regional wall motion abnormalities in the RCA territory. Cardiology recommended transfer to [facility] for cardiac craterization. The patient was accepted and transferred accordingly. [facility] (08/27/2024 - 08/30/2024) Patient was transferred from [facility] with concerns for NSTEMI. Troponin elevated. Cardiology consulted,per drug and alcohol counsellor Dr. Lopez, Patient without any significant risk [...] metoprolol therapy. Found to have wall motion abnormalitiesin the RCA territory on echocardiogram Transferred to [facility]. -in [facility] troponin peaked at 73. EKG without [...] x months (started 08/30/24 -follow up cardiology cardiology for further management, including the possibility of a cardiac MRI. Discharged home. [facility] ED (09/12/2024) Patient presented with SOB that started after wisdom teeth removal. Tachycardic on arrival (130 BPM) and chest x-ray clear. Given IVF, ketorolac, and dexamethasone with resolution of symptoms. Discharged home. Seen by Hematology 10/17/24 who recommend coagulative work and avoiding Estrogen if possible right now and as long as possible in the future. Pt reports she is doing okay. She notes she is mentally about 5/10. Pt is seeing a therapist, named Yeimi. She reports her therapist suggested if she cannot take estrogen she could consider bottom surgery or try make-up. Pt is unsure since she has never thought about that. Will evaluate make-up options and consult with cardiology regarding estrogen prior to evaluating bottom surgery as an option to extensive procedure. She notes she is seeing cardiology on 10/30/24. Social History Tobacco: denied Drugs: none Alcohol: on rare social occassions Sexuality: Denies current sexual activity Suicide/Depression: Current depressive symptoms include: Mood disturbance, characterized by hopelessness and sadness. Review of Systems Constitutional: Negative for fatigue, fever and unexpected weight change. Respiratory: Negative for cough. Cardiovascular: Negative for chest pain. Gastrointestinal: Negative for abdominal pain. Genitourinary: Negative for difficulty urinating. Psychiatric/Behavioral: Positive for behavioral problems. Current Outpatient Medications: albuterol 108 (90 Base) MCG/ACT inhaler, Inhale 2 puffs every 4 (four) hours if needed for wheezing., Disp: 18 g, Rfl: 0 aspirin 81 MG EC tablet, Take 1 tablet (81 mg) by mouth Once per day., Disp: 90 tablet, Rfl: 3 atorvastatin (Lipitor) 40 MG tablet, Take 1 tablet (40 mg) by mouth Once per day., Disp: 90 tablet,Rfl: 3 colchicine 0.6 MG tablet, Take 0.6 mg by mouth 2 times daily., Disp: , Rfl: sertraline (Zoloft) 25 MG tablet, Take 1 tablet by mouth Once per day., Disp: , Rfl: sertraline (Zoloft) 25 MG tablet, Take by mouth Once per day. Per psych Shani Rodríguez, Disp: , Rfl: spironolactone (Aldactone) 50 MG tablet, Take 1 tablet (50 mg) by mouth Once per day., Disp: 90 tablet, Rfl: 3 No Known Allergies Past Medical History: Diagnosis Date Asthma Autistic behavior 11/15/2022 Pt presents as autistic and is having difficulties interacting. Pt would like to be evaluated in hopes they may have social training therapy. -Sent to [facility] for autism screening 11/24/2022. -Pt will see Iqra Mabry with [facility]. -Referal done to [facility] 04/19/2023 for adult autism teting done at [facility]. -Has an appointment at [facility] Current moderate episode of major depressive disorder without prior episode (CMS/HCC) 11/16/2022 Evaluated by behavior health 11/24/2022. -Refered to empowerment project by Krystal. Dandruff 11/16/2022 -selenium sulfide shampoo prn Gender dysphoria 10/16/2023 -Pt uses she/her pronouns -Has been on medication but declines at this time due to difficulties taking medications -Given the number for [employer] for hair removal [phone] on 10/16/2023 - Given a list of voice coaches on 10/16/2023 -pt has therapist -she would like to restart estrogen she has been off since 2019 -start estradiol cypionate 5mg/ml, 0.4 ml q week (2mg) st Mild intermittent asthma 11/15/2022 -well controlled on albuterol prn No past surgical history on file. No family history on file. Objective Visit Vitals BP 131/84 (BP Location: Left arm, Patient Position: Sitting, BP Cuff Size: Adult) Pulse 87 Temp 96.9 ??F (36.1 ??C) (Temporal) Resp 20 Ht 5' 7 (1.702 m) Wt 200 lb 12.8 oz (91.1 kg) SpO2 98% BMI 31.45 kg/m?? Smoking Status Never BSA 2.08 m?? Physical Exam Constitutional: Appearance: Normal appearance. HENT: Right Ear: Tympanic membrane normal. Left Ear: Tympanic membrane normal. Nose: Nose normal. Mouth/Throat: Pharynx: Oropharynx is clear. Eyes: Extraocular Movements: Extraocular movements intact. Pupils: Pupils are equal, round, and reactive to light. Cardiovascular: Rate and Rhythm: Normal rate and regular rhythm. Heart sounds: Normal heart sounds. Pulmonary: Effort: Pulmonary effort is normal. Breath sounds: Normal breath sounds. No wheezing. Abdominal: General: Abdomen is flat. Palpations: Abdomen is soft. Tenderness: There is no abdominal tenderness. Musculoskeletal: General: Normal range of motion. Skin: General: Skin is warm and dry. Neurological: General: No focal deficit present. Mental Status: She is alert. Psychiatric: Mood and Affect: Mood normal. Behavior: Behavior normal. 29 y.o. adult annual evaluation. Problem List Items Addressed This Visit NSTEMI (non-ST elevated myocardial infarction) ([facility]) - Primary NSTEMI 08/27/24, Per drug and alcohol counsellor Dr. Lopez, Patient without any significant risk [...] the RCA territory on echocardiogram Transferred to [facility]. She had been taking Provera and estradiol and spironolactone, as the hormonal therapy. -Question is if that led to the ischemic event. -The other possibility is that of an underlying hypercoagulable state. -in [facility] troponin peaked at 73. EKG without [...] x months (started 08/30/24 -follow up cardiology who had a Non ST-elevation AR, back in August. -seen by hematology 10/17/24 proceed with a hypercoagulable workup. -continue on baby Aspirin. -hematology states would like to avoid estrogen, if at all possible. -She will return to hematology in a couple of months for a follow-up visit. Seen by Hematology 10/17/24 who recommend coagulative work and avoiding Estrogen if possible right now and as long as possible in the future. -has appt. with cardiology 10/31/24 Relevant Medications aspirin 81 MG EC tablet atorvastatin (Lipitor) 40 MG tablet Gender dysphoria Relevant Medications spironolactone (Aldactone) 50 MG tablet Post traumatic stress disorder (PTSD) -[facility] dx pt with social anxiety disorder and PTSD on 12/05/23 -referred to behavioral health 04/24/24 -sees Therapist in [place], named Yeimi. Depressive disorder -[facility] dx pt with social anxiety disorder and PTSD on 12/05/23 -referred to behavioral health 04/24/24 -sees Therapist in [place], sen Jalloh. Relevant Medications sertraline (Zoloft) 25 MG tablet Social anxiety disorder -[facility] dx pt with social anxiety disorder and PTSD on 12/05/23 -referred to behavioral health 04/24/24 -sees Therapist in [place], sen Jalloh. Autistic behavior Pt presents as autistic and is having difficulties interacting. Pt would like to be evaluated in hopes they may have social training therapy. -Sent to [facility] for autism screening 11/24/2022. -Pt will see Iqra Mabry with [facility]. -Referal done to [facility] 04/19/2023 for adult autism teting done at [facility]. -Has an appointment at [facility] on 10/24/2023 at 2PM -ADOS did not meet criteria for Autism spectrum disorder. [facility] dx pt withsocial anxiety disorder and PTSD on 2023. -patient has behaviors consistent with Autisim Class 1 obesity due to excess calories without serious comorbidity with body mass index (BMI) of 31.0 to 31.9 in adult Discussed weight, diet, exercise with patient in relation to health conditions. Used motivational interviewing to illicit change talk and established initial goals with patient. Dietary counseling Dietary Recommendations: Fruits, vegetables, whole grains, protein foods, and fat-free or low-fat dairy products are healthychoices. Eat different types of protein foods in your diet. This can include seafood, lean meats, poultry, beans, peas, lentils, nuts, seeds, soy products, and eggs. Limit foods and beverages higher in added sugars, saturated fat, and sodium. Exercise counseling Exercise Recommendations: At least 150 minutes of moderate-intensity physical activity per week, or an equivalent combinationof moderate- and vigorous-intensity activity Other specified health status -next physical exam due after 10/18/25 -eye care referral to [facility] on 10/16/2023 -dental home is [facility] -health care proxy paper work filed 10/16/23 Annual Evaluation -Normal growth and development. -Anticipatory guidance discussed. -Preventative care / harm reduction discussed. Follow up in about 3 months (around 01/18/2025) for follow-up cardiology. I, Sukhdev Rm, am serving as a scribe to document services personally performed by Dr. Pettit, based on the patient's response to questions by provider and providers statements to me. documented in this encounter Miscellaneous Notes * Assessment & Plan Note - Sukhdev Rm - 10/18/2024 10:27 AM EDTAssociated Problem(s): Autistic behavior Pt presents as autistic and is having difficulties interacting. Pt would like to be evaluated in hopes they may have social training therapy. -Sent to [facility] for autism screening 11/24/2022. -Pt will see Iqra Mabry with behavioral health. -Referal done to behavioral health 04/19/2023 for adult autism teting done at [facility]. -Has an appointment at [facility] on 10/24/2023 at 2PM -ADOS did not meet criteria for Autism spectrum disorder. [facility] dx pt withsocial anxiety disorder and PTSD on 2023. -patient has behaviors consistent with Autisim * Assessment & Plan Note - Sukhdev Rm - 10/18/2024 10:26 AM EDTAssociated Problem(s): Class 1 obesity due to excess calories without serious comorbidity with bodymass index (BMI) of 31.0 to 31.9 in adult Discussed weight, diet, exercise with patient in relation to health conditions. Used motivational interviewing to illicit change talk and established initial goals with patient. * Assessment & Plan Note - Sukhdev Rm - 10/18/2024 10:26 AM EDTAssociated Problem(s): Depressive disorder -[facility] dx pt with social anxiety disorder and PTSD on 12/05/23 -referred to behavioral health 04/24/24 -sees Therapist in [place], named Yeimi. * Assessment & Plan Note - Sukhdev Rm - 10/18/2024 10:25 AM EDTAssociated Problem(s): Other specified health status -next physical exam due after 10/18/25 -eye care referral to [facility] on 10/16/2023 -dental home is [facility] -health care proxy paper work filed 10/16/23 * Assessment & Plan Note - Sukhdev Rm - 10/18/2024 10:25 AM EDTAssociated Problem(s): Exercise counseling Exercise Recommendations: At least 150 minutes of moderate-intensity physical activity per week, or an equivalent combinationof moderate- and vigorous-intensity activity * Assessment & Plan Note - Sukhdev Rm - 10/18/2024 10:25 AM EDTAssociated Problem(s): Dietary counseling Dietary Recommendations: Fruits, vegetables, whole grains, protein foods, and fat-free or low-fat dairy products are healthychoices. Eat different types of protein foods in your diet. This can include seafood, lean meats, poultry, beans, peas, lentils, nuts, seeds, soy products, and eggs. Limit foods and beverages higher in added sugars, saturated fat, and sodium. * Assessment & Plan Note - Sukhdev Rm - 10/18/2024 10:24 AM EDTAssociated Problem(s): NSTEMI (non-ST elevated myocardial infarction) ([facility]) NSTEMI 08/27/24, Per drug and alcohol counsellor Dr. Lopez, Patient without any significant risk [...] the RCA territory on echocardiogram Transferred to [facility]. She had been taking Provera and estradiol and spironolactone, as the hormonal therapy. -Question is if that led to the ischemic event. -The other possibility is that of an underlying hypercoagulable state. -in [facility] troponin peaked at 73. EKG without [...] x months (started 08/30/24 -follow up cardiology who had a Non ST-elevation AR, back in August. -seen by hematology 10/17/24 proceed with a hypercoagulable workup. -continue on baby Aspirin. -hematology states would like to avoid estrogen, if at all possible. -She will return to hematology in a couple of months for a follow-up visit. Seen by Hematology 10/17/24 who recommend coagulative work and avoiding Estrogen if possible right now and as long as possible in the future. -has appt. with cardiology 10/31/24 * Assessment & Plan Note - Sukhdev Rm - 10/18/2024 10:15 AM EDTAssociated Problem(s): Social anxiety disorder -[facility] dx pt with social anxiety disorder and PTSD on 12/05/23 -referred to behavioral health 04/24/24 -sees Therapist in [place], sen Jalloh. * Assessment & Plan Note - Sukhdev Rm - 10/18/2024 10:15 AM EDTAssociated Problem(s): Post traumatic stress disorder (PTSD) -[facility] dx pt with social anxiety disorder and PTSD on 12/05/23 -referred to behavioral health 04/24/24 -sees Therapist in [place], sen Jalloh. documented in this encounter Plan of Treatment Upcoming Encounters Date Type Department Care Team (Late st Contact Info) Description 11/18/2024 11:00 AM EDT Office Visit [facility] DENT[facility] [address] [place] [address] Bre Van 01/20/2025 10:30 AM EDT Office Visit [facility] MED[facility] [address] [place] [address] Ilda Andujar MD [address] [place] [address] documented as of this encounter Visit Diagnoses Diagnosis NSTEMI (non-ST elevated myocardial infarction) (CMS/[facility])- Primary Acute myocardial infarction, subendocardial infarction, episode of care unspecified Gender dysphoria Post traumatic stress disorder (PTSD) Depressive disorder Depressive disorder, not elsewhere classified Social anxiety disorder Social phobia Autistic behavior Class 1 obesity due to excess calories without serious comorbidity with body mass index (BMI) of 31.0 to 31.9 in adult Dietary counseling Dietary surveillance and counseling Exercise counseling Other specified health status documented in this encounter Additional Health Concerns Assessment Noted Time PHQ-9 Depression Total Score: 2 10/19/19 25 9:59 AM EDT documented as of this encounter Care Teams Senior Media Director Relationship Specialty Start Date End Date Ilda Andujar MD [address] [place] [address] PCP - General Family Medicine 07/20/17 Pankaj Lopez MD [address] [place] [address] [address] [place] [address] Cardiology 08/27/24 Glenn Baptiste MD [address] [place] [id number] Hematology and Oncology 10/18/24 [facility] Psychology 10/18/24 Shani Rodríguez [place], [place] Psychiatry 10/18/24 documented as of this encounter
--- OUTSIDE RECORDS SUMMARY | 2024-10-30 14:21 | XMS_ITS | Encounter Summary ---
Author Organization [employer] Address [address] [place] [address] Care Team Providers Care Clinical Evaluator Name Role Phone Ilda Andujar MD Primary Care Provider [phone] Pankaj Lopez MD Unavailable Glenn Baptiste MD Unavailable [phone] Reason for Visit * Reason Comments Cough Sore Throat Encounter Details Date Type Department Care Team (Late st Contact Info) Description 10/28/2024 2:00 PM EDT Office Visit [facility] [address] [place] [address] Fozia Malik ANP [address] [place] [address] Acute cough (Primary Dx); Acute URI Social History Tobacco Use Types Packs/Day Years [...] Sign Reading Time Taken Comments Blood Pressure 127/79 10/28/2024 2:09 PM EDT Pulse 103 10/28/2024 2:09 PM EDT Temperature 36.3 ??C (97.4 ??F) 10/28/2024 2:09 PM ED T Respiratory Rate 17 10/28/2024 2:09 PM EDT Oxygen Saturation 98% 10/28/2024 2:09 PM EDT Inhaled Oxygen Concentration - - Weight 90.6 kg (199 lb 12.8 oz) 10/28/2024 2:09 PM EDT Height - - Body Mass Index 31.29 10/18/2024 10:02 AM EDT documented in this encounter Progress Notes * PARRISH Hogue - 10/28/2024 2:00 PM EDT Subjective Patient ID: Jessica Nicole is a 29 y.o. adult who presents for Cough and Sore Throat. HPI PMH NSTEMI, Autistic behavior, Mild intermittent asthma, Depression and Gender dysphoria Last PCP visit for NSTEMI 10/18/24 Here today for cough that onset after having the flu 2-3 weeks ago. No fever no chills or bodyachesnow. Mom was sick but is also better now. Denies shortness of breath, chest pain, wheezing. He is not hydrating well. Non-smoker Review of Systems Constitutional: Negative for chills, fatigue and fever. HENT: Negative for voice change. Respiratory: Positive for cough. Negative for shortness of breath and wheezing. Gastrointestinal: Negative for abdominal pain. Musculoskeletal: Negative for back pain. Objective BP 127/79 (BP Location: Left arm, Patient Position: Sitting, BP Cuff Size: Adult) [id number] Temp 97.4 ??F (36.3 ??C) (Temporal) Resp 17 Wt 199 lb 12.8 oz (90.6 kg) SpO2 98% BMI 31.29 kg/m?? Physical Exam Vitals reviewed. Constitutional: General: She is not in acute distress. Appearance: Normal appearance. She is not ill-appearing. HENT: Head: Normocephalic and atraumatic. Eyes: General: No scleral icterus. Extraocular Movements: Extraocular movements intact. Pupils: Pupils are equal, round, and reactive to light. Cardiovascular: Rate and Rhythm: Normal rate and regular rhythm. Pulmonary: Effort: Pulmonary effort is normal. No accessory muscle usage or respiratory distress. Breath sounds: Normal breath sounds. Comments: Nonproductive cough Neurological: Mental Status: She is alert and oriented to person, place, and time. Psychiatric: Mood and Affect: Mood normal. Behavior: Behavior normal. Assessment/Plan Diagnoses and all orders for this visit: Cough, Acute URI Lungs CTAB. rapid testing for COVID, flu, strep was negative. Suspect patient has residual cough s/p flu a few weeks ago. Reviewed with patient the anticipated duration of coughs and to please hydrate well, drink tea with honey and let us know if her cough does not continue to improve. Cont to use cough drops as needed. - POCT Rapid COVID Ag - POCT rapid strep A manually resulted - Influenza A (ID NOW Rapid Molecular) - Influenza B (ID NOW Rapid Molecular) documented in this encounter Plan of Treatment Upcoming Encounters Date Type Department Care Team (Late st Contact Info) Description 11/18/2024 11:00 AM EDT Office Visit [facility] [address] [place] [address] Bre Van 01/20/2025 10:30 AM EDT Office Visit [facility] [address] [place] [address] Ilda Andujar MD [address] [place], [place] [phone] documented as of this encounter Procedures Procedure Name Priority Date/Time Associated Diagnosis Comments POCT INFLUENZA B (ID NOW RAPID MOLECULAR) Routine 10/28/2024 2:25 PM EDT Acute URI POCT INFLUENZA A (ID NOW RAPID MOLECULAR) Routine 10/28/2024 2:25 PM EDT Acute URI POCT RAPID COVID ANTIGEN Routine 10/28/2024 2:25 PM EDT Acute URI POCT RAPID STREP A Routine 10/28/2024 2: 25 PM EDT Acute URI documented in this encounter Results * Influenza B (ID NOW Rapid Molecular) (10/28/2024 2:25 PM EDT) Pathologist [facility] [place] Influenza B Negative Negative, Indeterminate [facility] Swab 10/28/2024 2:25 PM EDT Fozia [facility] POINT OF CARE TEST ENTER/EDIT OR DERABLES Final Result [facility] [address] [place] [phone] * Influenza A (ID NOW Rapid Molecular) (10/28/2024 2:25 PM EDT) [facility] Influenza A Negative Negative, Indeterminate [facility] Swab 10/28/2024 2:25 PM EDT Fozia Malik ANP POINT OF CARE TEST ENTER/EDIT OR DERABLES Final Result Performing Organization Address [facility] Co de Phone Number [facility] [address] [place] [phone] * POCT rapid strep A manually resulted (10/28/2024 2:25 PM EDT) Rapid Strep A Screen Negative Negative, None Detected [facility] Swab 10/28/2024 2:25 PM EDT Fozia Malik ANP POINT OF CARE TEST ENTER/EDIT OR DERABLES Final Result Performing Organization Address [facility] Co de Phone Number [facility] [address] [place] [phone] * POCT Rapid COVID Ag (10/28/2024 2:25 PM EDT) Rapid COVID Ag Negative [facility] Swab 10/28/2024 2:25 PM EDT Fozia Malik ANP POINT OF CARE TEST ENTER/EDIT OR DERABLES Final Result Performing Organization Address [facility] de Phone Number [facility] [address] [place] [phone] documented in this encounter Visit Diagnoses Diagnosis Acute cough- Primary Acute URI Acute upper respiratory infections of unspecified site documented in this encounter Additional Health Concerns Assessment Noted Time PHQ-9 Depression Total Score: 2 10/19/19 25 9:59 AM EDT documented as of this encounter Care Teams Clinical Evaluator Relationship Specialty Start Date End Date Ilda Andujar MD [address] [place] [phone] PCP - General Family Medicine 07/20/17 Pankaj Lopez MD [address] [place] [address] [address] [place] [address] Cardiology 08/27/24 Glenn Baptiste MD [address] [place] [phone] Hematology and Oncology 10/18/24 Tg Bernstein [facility] [place] Psychology 10/18/24 Shani Rodríguez [place], [place] Psychiatry 10/18/24 documented as of this encounter
--- OUTSIDE RECORDS SUMMARY | 2024-10-30 14:21 | XMS_ITS | Clinical Summary ---
Author Organization [email or web address] Address [address] [place] [address] Care Team Providers Care Transactional Attorney Name Role Phone Ilda Andujar MD Primary Care Provider [phone] Pankaj Lopez MD Unavailable Glenn Baptiste MD Unavailable [phone] Allergies No known active allergies Medications * This document contains information received from the source organization and may not represent a complete record from that organization. albuterol 108 (90 Base) MCG/ACT inhalerIndicati ons:Mild intermittent asthma without complication Inhale 2 puffs every 4 (four) hours if needed for wheezing. 18 g 06/25/20 24 025 Active colchicine 0.6 MG tabletIndicatio ns:NSTEMI (non-ST elevated myocardial infarction) (CMS/HCC) Take 0.6 mg by mouth 2 times daily. 08/30/19 25 Active sertraline (Zoloft) 25 MG tablet Take 1 tablet by mouth Once per day. 09/04/19 25 Active spironolactone (Aldactone) 50 MG tabletIndicatio ns:Gender dysphoria Take 1 tablet (50 mg) by mouth Once per day. 90 tablet 3 10/19/19 25 026 Active aspirin 81 MG EC tabletIndicatio ns:NSTEMI (non-ST elevated myocardial infarction) (CMS/HCC) Take 1 tablet (81 mg) by mouth Once per day. 90 tablet 3 10/19/19 25 Active atorvastatin (Lipitor) 40 MG tabletIndicatio ns:NSTEMI (non-ST elevated myocardial infarction) (CMS/HCC) Take 1 tablet (40 mg) by mouth Once per day. 90 tablet 3 10/19/19 25 Active sertraline (Zoloft) 25 MG tabletIndicatio ns:Depressive disorder Take by mouth Once per day. Per psych Shani Rodríguez Active spironolactone (Aldactone) 50 MG tabletIndicatio ns:Gender dysphoria Take 1 tablet (50 mg) by mouth Once per day. 30 tablet 11 06/07/20 24 025 Discontinued(Re order (will not trigger notification to Pharmacy)) aspirin 81 MG EC tabletIndicatio ns:NSTEMI (non-ST elevated myocardial infarction) (CMS/HCC) Take 81 mg by mouth Once per day. 08/27/19 25 025 Discontinued(Re order (will not trigger notification to Pharmacy)) atorvastatin (Lipitor) 40 MG tabletIndicatio ns:NSTEMI (non-ST elevated myocardial infarction) (CMS/HCC) Take 40 mg by mouth Once per day. 08/27/19 25 025 Discontinued(Re order (will not trigger notification to Pharmacy)) chlorhexidine (Peridex) 0.12 % solution Use 15 mL in the mouth or throat if needed (for mouthwash 15 ml for 30 seconds, swish and spit) for up to 14 days. 473 mL 09/16/19 25 025 Active Problems Problem Noted Date Diagnosed Date Depressive disorder 10/18/2024 Overview (10/18/2024): -Drive dx pt with social anxiety disorder and PTSD on 12/05/23 -referred to behavioral health 04/24/24 -sees Therapist in [place], sen Jalloh. Assessment & Plan (10/18/2024 10:26 AM EDT): -Drive dx pt with social anxiety disorder and PTSD on 12/05/23 -referred to behavioral health 04/24/24 -sees Therapist in [place], sen Jalloh. Class 1 obesity due to exces s calories without serious comorbidity with body mass index (BMI) of 31.0 to 31.9 in adult 09/09/2024 Assessment & Plan (10/18/2024 10:26 AM EDT): Discussed weight, diet, exercise with patient in relation to health conditions. Used motivational interviewing to illicit change talk and established initial goals with patient. Exercise counseling 09/09/2024 Assessment & Plan (10/18/2024 10:25 AM EDT): Exercise Recommendations: At least 150 minutes of moderate-intensity physical activity per week, or an equivalent combination of moderate- and vigorous-intensity activity Dietary counseling 09/09/2024 Assessment & Plan (10/18/2024 10:25 AM EDT): Dietary Recommendations: Fruits, vegetables, whole grains, protein foods, and fat-free or low-fat dairy products are healthy choices. Eat different types of protein foods in your diet. This can include seafood, lean meats, poultry, beans, peas, lentils, nuts, seeds, soy products, and eggs. Limit foods and beverages higher in added sugars, saturated fat, and sodium. HTN (hypertension) 09/09/2024 Hyperlipidemia 09/09/2024 Otitis externa 09/09/2024 NSTEMI (non-ST elevated myocardial infarction) 0 08/27/2024 Overview (10/18/2024): NSTEMI 08/27/24, Per globe cleaner Dr. Lopez, Patient without any significant risk [...] the RCA territory on echocardiogram Transferred to [facility]. She had been taking Provera and estradiol and spironolactone, as the hormonal therapy. -Question is if that led to the ischemic event. -The other possibility is that of an underlying hypercoagulable state. -in [facility] troponin peaked at 73. EKG without [...] up cardiology who had a Non ST-elevation NE, back in August. -seen by hematology 10/17/24 [...] the future. -has appt. with cardiology 10/31/24 Assessment & Plan (10/18/2024 10:24 AM EDT): NSTEMI 08/27/24, Per globe cleaner Dr. Lopez, Patient without any significant risk [...] the RCA territory on echocardiogram Transferred to [facility]. She had been taking Provera and estradiol and spironolactone, as the hormonal therapy. -Question is if that led to the ischemic event. -The other possibility is that of an underlying hypercoagulable state. -in [facility] troponin peaked at 73. EKG without [...] up cardiology who had a Non ST-elevation NE, back in August. -seen by hematology 10/17/24 [...] the future. -has appt. with cardiology 10/31/24 Assessment & Plan (09/09/2024 2:22 PM EST): NSTEMI 08/27/24, Per globe cleaner Dr. Lopez, Patient without any significant risk [...] the RCA territory on echocardiogram Transferred to [facility]. -in [facility] troponin peaked at 73. EKG without [...] Post traumatic stress disorder (PTSD) 04/24/2024 Overview (10/18/2024): -[facility] dx pt with social anxiety disorder and PTSD on 12/05/23 -referred to behavioral health 04/24/24 -sees Therapist in [place], named Yeimi. Assessment & Plan (10/18/2024 10:15 AM EDT): -[facility] [employer] dx pt with social anxiety disorder and PTSD on 12/05/23 -referred to behavioral health 04/24/24 -sees Therapist in [place], named Yeimi. Assessment & Plan (04/24/2024 3:39 PM EDT): -[employer] [facility] dx pt with social anxiety disorder and PTSD on 12/05/23 -referred to behavioral health 04/24/24 Social anxiety disorder 04/24/2024 Overview (10/18/2024): -[employer] dx pt with social anxiety disorder and PTSD on 12/05/23 -referred to behavioral health 04/24/24 -sees Therapist in [place], named Yeimi. Assessment & Plan (10/18/2024 10:15 AM EDT): -[facility] dx pt with social anxiety disorder and PTSD on 12/05/23 -referred to behavioral health 04/24/24 -sees Therapist in [place], named Yeimi. Assessment & Plan (05/01/2024 2:32 PM EDT): [...] her medical chart. He was referred to [facility] in the past for autism evaluation. Pt [...] protective factors. Provided information for CB and [facility] help line. clinician will place referrals for Psychiatry services and OP individual therapy. Pt is aware of importance of connecting with services. Provided coping mechanisms to incorporate into daily routine. Assessment & Plan (04/24/2024 3:39 PM EDT): -[facility] dx pt with social anxiety disorder and PTSD on 12/05/23 -referred to behavioral health 04/24/24 Pain 04/24/2024 Gender dysphoria 10/16/2023 Overview (10/18/2024): -Pt uses she/her pronouns -Has been on medication but declines at this time due to difficulties taking medications -Given the number for [facility] for hair removal [phone] on 10/16/2023 - Given a list of [...] estradiol patches for safer side effect profile. -seen by hematology 10/17/24 proceed with a hypercoagulable workup. -continue on baby Aspirin. -hematology states would like to avoid estrogen, if at all possible. -She will return to hematology in a couple of months for a follow-up visit. Seen by Hematology 10/17/24 who recommend coagulative work and avoiding Estrogen if possible right now and as long as possible in the future. Assessment & Plan (09/09/2024 2:23 PM EST): -Pt uses she/her pronouns -Has been on medication but declines at this time due to difficulties taking medications -Given the number for [facility] for hair removal [phone] on 10/16/2023 - Given a list of [...] [facility] for hair [facility] [phone] on 10/16/2023 - Given a list of [...] [facility] for hair [facility] [phone] on 10/16/2023 - Given a list of voice coaches on 10/16/2023 Muscle cramping 04/19/2023 Overview (04/19/2023): Magnesium given 04/19/2023. Assessment & Plan (04/19/2023 11:19 AM EDT): Magnesium given 04/19/2023. Other specified health status 04/17/2023 Overview (10/18/2024): -next physical exam due after 10/18/25 -eye care referral to [facility] on 10/16/2023 -dental home is [facility] Dental -health care proxy paper work filed 10/16/23 Assessment & Plan (10/18/2024 10:25 AM EDT): -next physical exam due after 10/18/25 -eye care referral to [facility] on 10/16/2023 -dental home is [facility] Dental -health care proxy paper work filed 10/16/23 Assessment & Plan (10/16/2023 10:50 AM EDT): -next physical exam due after 10/15/2024 -eye care referral to [facility] on 10/16/2023, pt wants to discuss getting new frames -dental home is [facility] Dental - Health care proxy paperwork provided [...] episode 11/16/2022 Overview (04/19/2023): Evaluated by behavior health 11/24/2022. -Refered to empowerment project by [facility]. Assessment & Plan (05/01/2024 10:26 AM EDT): During [facility] Consult Roshelly presenting with depressed mood, Tearful, hopelessness, irritable [...] her medical chart. He was referred to [facility] in the past for autism evaluation. Pt [...] protective factors. Provided information for CB and [facility] help line. clinician will place referrals for Psychiatry services and OP individual therapy. Pt is aware of importance of connecting with services. Provided coping mechanisms to incorporate into daily routine. Assessment & Plan (10/16/2023 10:37 AM EDT): Evaluated by behavior [facility] 11/24/2022. -Refered to empowerment project by [facility]. Assessment & Plan (04/19/2023 10:56 AM EDT): Evaluated by behavior [facility] 11/24/2022. -Refered to empowerment project by [facility]. Autistic behavior 11/15/2022 Overview (06/07/2024): Pt presents as autistic and is having difficulties interacting. Pt would like to be evaluated in hopes they may have social training therapy. -Sent to [facility] for autism screening 11/24/2022. -Pt will see Iqra Mabry with [facility] health. -Referal done to behavioral health 04/19/2023 for adult autism teting done at [facility]. -Has an appointment at [facility] on 10/24/2023 at 2PM -ADOS did not meet criteria for Autism spectrum disorder. [facility] dx pt with social anxiety disorder and PTSD on 2023. -patient has behaviors consistent with Autisim Assessment & Plan (10/18/2024 10:27 AM EDT): Pt presents as autistic and is having difficulties interacting. Pt would like to be evaluated in hopes they may have social training therapy. -Sent to [facility] for autism screening 11/24/2022. -Pt will see Iqra Mabry with behavioral health. -Referal done to behavioral health 04/19/2023 for adult autism teting done at [facility]. -Has an appointment at [facility] on 10/24/2023 at 2PM -ADOS did not meet criteria for Autism spectrum disorder. [facility] dx pt with social anxiety disorder and PTSD on 2023. -patient has behaviors consistent with Autisim Assessment & Plan (04/24/2024 3:38 PM EDT): Pt presents as autistic and is having difficulties interacting. Pt would like to be evaluated in hopes they may have social training therapy. -Sent to [facility] for autism screening 11/24/2022. -Pt will see Iqra Mabry with behavioral health. -Referal done to behavioral health 04/19/2023 for adult autism teting done at [facility]. -Has an appointment at [facility] on 10/24/2023 at 2PM -[facility] dx pt with social anxiety disorder and PTSD on 12/05/23 Assessment & Plan (10/16/2023 10:21 AM EDT): Pt presents as autistic and is having difficulties interacting. Pt would like to be evaluated in hopes they may have social training therapy. -Sent to [facility] for autism screening 11/24/2022. -Pt will see Iqra Mabry with behavioral health. -Referal done to behavioral health 04/19/2023 for adult autism teting done at [facility]. -Has an appointment at [facility] on 10/24/2023 at 2PM Assessment & Plan (04/19/2023 11:17 AM EDT): Pt presents as autistic and is having difficulties interacting. Pt would like to be evaluated in hopes they may have social training therapy. -Sent to [facility] for autism screening 11/24/2022. -Pt will see Iqra Mabry with behavioral health. -Referal done to behavioral health 04/19/2023 for adult autism teting done at [facility] [employer]. Assessment & Plan (11/16/2022 11:50 AM EDT): [...] Encounters Date Type Department Care Team Description 10/28/2024 2:00 PM EDT Office Visit [facility] [address] [place] [address] Fozia Malik ANP Acute cough (Primary Dx); Acute URI 10/18/2024 10:00 AM EDT Office Visit [facility] MEDIC[facility] [address] [place] [address] Ilda Andujar MD NSTEMI (non-ST elevated myocardial infarction) (CMS/HCC) (Primary Dx); Gender dysphoria; Post traumatic stress disorder (PTSD); Depressive disorder; Social anxiety disorder; Autistic behavior; Class 1 obesity due to excess calories without serious comorbidity with body mass index (BMI) of 31.0 to 31.9 in adult; Dietary counseling; Exercise counseling; Other specified health status 10/18/2024 Population Health Risk Score [facility] () Department [address] [phone] Provider, Population Health Generic 10/18/2024 Travel 09/18/2024 1:00 PM EST Office Visit [facility] ADULT [facility] [address] [place] [address] David Solis DMD 09/18/2024 Telephone [facility] [address] [place] [address] Ilda Andujar MD Appointment Request 09/16/2024 11:30 AM EST Office Visit [facility] ADULT [facility]ENT[facility] [address] [place] [address] Alondra Sims, DDS History of third molar tooth extraction, unspecified edentulism class (Primary Dx) 09/16/[address] [address] Kandis Cazares MA chartprep 09/13/2024 Patient Outreach [address] [address] Ilda Andujar MD Transition Of Care (Tcm) 09/12/2024 Orders Only GENERIC EXTERNAL DATA DEPARTMENT Provider, Generic External Data 09/11/2024 10:30 AM EST Office Visit [facility] ADULT DENTAL [address] [place], [place] [phone] David Solis DMD History of third molar tooth extraction, unspecified edentulism class (Primary Dx) 09/09/2024 11:00 AM EST Office Visit [address] [address] Ilda Andujar MD NSTEMI (non-ST elevated myocardial infarction) ([facility]) (Primary Dx); Gender dysphoria; Autistic behavior; Mild intermittent asthma without complication; Class 1 obesity due to excess calories without serious comorbidity with body mass index (BMI) of 31.0 to 31.9 in adult; Dietary counseling; Exercise counseling; Other specified health status 09/09/[address] [address] Ilda Andujar MD Appointment Request 09/09/2024 Travel 09/09/[address] [address] Ilda Andujar MD Chart Prep 09/02/2024 Patient Outreach [address] [address] Ilda Andujar MD Transition Of Care (Tcm) (HDF scheduled) 08/28/2024 Patient Outreach [facility] [address] [place] [phone] Ilda Andujar MD Transition Of Care (Tcm) (HDF unscheduled) 08/26/2024 Orders Only [facility] External Provider, [facility] 08/14/2024 10:30 AM EST Office Visit [facility] ADULT DENTAL [address] [place] [address] David Solis DMD History of third molar tooth extraction, unspecified edentulism class (Primary Dx) 08/09/2024 11:00 AM EST Office Visit [facility] ADULT DENTAL [address] [place] [address] Jenise Aguillon 08/08/2024 1:30 PM EST Clinical Support [address] [address] Jany Wilson RN Gender dysphoria 08/06/2024 12:00 PM EST Office Visit [facility] ADULT DENT[facility] [address] [place] [address] Khalil, Kimi Dental calculus (Primary Dx); Dental plaque 08/01/2024 Telephone [facility] ADULT DENTAL [address] [place] [address] Jenise Aguillon rs appt from Last 3 Months Immunizations Name Administration [...] 12.8 oz) 10/28/2024 2:09 PM EDT Height 170.2 cm (5' 7 ) 10/18/2024 10:0 2 AM EDT Body Mass Index 31.29 10/18/2024 10:02 AM EDT Plan of Treatment Upcoming Encounters Date Type Department Care Team (Late st Contact Info) Description 11/18/2024 11:00 AM EDT Office Visit [facility] ADULT DENTAL [address] [place], [place] [phone] Bre Van 01/20/2025 10:30 AM EDT Office Visit [facility] MED[facility] [address] [place], [place] [phone] Ilda Andujar MD [address] [place], [place] [phone] Health Maintenance Due Date Last Done Comments Dental X-Ray: Bitewings 1995 Dental X-Ray: Full Mouth 1995 Dental Oral Exam 11/18/2023 05/18/2023 Dental Prophylaxis 02/04/2025 08/06/2024, 0 01/16/2024, 06/01/2023 Alcohol/Substance Use Screening 06/07/2025 06/07/2024 Family Planning (PISQ) 09/09/2025 09/09/2024 Depression Screening 10/18/2025 10/18/2024, 10/19/19 25 SDOH Screening 10/18/2025 10/18/2024 Tobacco Screening 10/28/2025 10/28/2024 DTaP/Tdap/Td Vaccines (2 - Td or Tdap) [...] 10/28/2024 2: 25 PM EDT Acute URI POCT RAPID COVID ANTIGEN Routine 10/28/2024 2:25 PM EDT Acute URI RE-EVAL - POST-OP OFFICE VISIT Routine 09/18/2024 1:00 PM EST CASE PRESENTATION, DETAILED AND EXTENSIVE TREATMENT PLANNING Routine 09/16/2024 11:30 AM EST History of third molar tooth extraction, unspecified edentulism class PALLIATIVE (EMERGENCY) TREATMENT OF DENTAL PAIN - MINOR PROCEDURE Routine 09/16/2024 11:30 AM EST History of third molar tooth extraction, unspecified edentulism class HIGH SENSITIVITY TROPONIN I Routine 09/12/2024 2:41 PM EST MAGNESIUM Routine 09/12/2024 2:41 PM EST BASIC METABOLIC PANEL Routine 09/12/2024 2:41 PM EST HEPATIC FUNCTION PANEL Routine 2:41 PM EST APTT Routine 09/12/2024 2:41 PM EST PROTHROMBIN TIME-INR Routine 09/12/2024 2:41 PM EST CBC WITH AUTO DIFFERENTIAL Routine 09/12/2024 2:41 PM EST SARS COV2/INFLUENZA A/B AND RSV RNA QL NAAT Routine 09/12/2024 2:41 PM EST XR CHEST 1 VIEW Routine 09/12/2024 2:07 PM EST 32 REMOVAL OF IMPACTED TOOTH - COMPLETELY BONY Routine 09/11/2024 10:30 AM EST 16 REMOVAL OF IMPACTED TOOTH - COMPLETELY BONY Routine 09/11/2024 10:30 AM EST 17 REMOVAL OF IMPACTED TOOTH - COMPLETELY BONY [...] 7:26 PM EST HEPATIC FUNCTION PANEL Routine 7:26 PM EST CBC WITH AUTO DIFFERENTIAL Routine 08/26/2024 7:26 PM EST SARS COV2/INFLUENZA A/B AND RSV RNA QL NAAT Routine 08/26/2024 7:26 PM EST STREP A NUCLEIC ACID Routine 08/26/2024 7:26 PM EST 1 REMOVAL OF IMPACTED TOOTH - COMPLETELY BONY Routine 08/14/2024 10:30 AM EST 2 EXTRACTION, ERUPTED TOOTH OR EXPOSED ROOT (ELEVATION/FORCEPS REMOVAL) Routine 08/14/2024 10:30 AM EST PALLIATIVE (EMERGENCY) TREATMENT OF DENTAL PAIN - MINOR PROCEDURE Routine 08/09/2024 11:00 AM EST CONSULTATION - DIAGNOSTIC SERVICE PROVIDED BY DENTIST OR PHYSICIAN OTHER THAN REQUESTING DENTIST OR PHYSICIAN Routine 08/09/2024 11:00 AM EST PROPHYLAXIS - ADULT Routine 08/06/2024 1 2:00 PM EST Dental calculus Dental plaque ORAL HYGIENE INSTRUCTIONS Routine 08/06/2024 12:00 PM EST Dental calculus Dental plaque CASE PRESENTATION, DETAILED AND EXTENSIVE TREATMENT PLANNING Routine 08/06/2024 12:00 PM EST HEPATITIS C AB W/REFL TO HCV RNA, [...] Recently Relevant to Health Maintenance Results * Influenza B (ID NOW Rapid Molecular) (10/28/2024 2:25 PM EDT) Influenza B Negative Negative, Indeterminate [facility] Swab 10/28/2024 2:25 PM EDT us Fozia Malik ANP POINT OF CARE TEST ENTER/EDIT OR DERABLES Final Result Performing Organization Address [facility]/ZIP Co de Phone Number [facility] [address] [place] [phone] * Influenza A (ID NOW Rapid Molecular) (10/28/2024 2:25 PM EDT) Influenza A Negative Negative, Indeterminate [facility] Swab 10/28/2024 2:25 PM EDT us Fozia Malik ANP POINT OF CARE TEST ENTER/EDIT OR DERABLES Final Result Performing Organization Address [facility]/ZIP Co de Phone Number [facility] [address] [place] [phone] * POCT Rapid COVID Ag (10/28/2024 2:25 PM EDT) Rapid COVID Ag Negative [facility] Swab 10/28/2024 2:25 PM EDT us Fozia Malik ANP POINT OF CARE TEST ENTER/EDIT OR DERABLES Final Result Performing Organization Address [facility]/ZIP Co de Phone Number [facility] [address] [place] [address] [phone] * POCT rapid strep A manually resulted (10/28/2024 2:25 PM EDT) [facility] Rapid Strep A Screen Negative Negative, None Detected [facility] Swab 10/28/2024 2:25 PM EDT Fozia Malik ANP POINT OF CARE TEST ENTER/EDIT OR DERABLES Final Result Performing Organization Address [facility] Co de Phone Number [facility] [address] [place] [phone] * High Sensitivity Troponin I (09/12/2024 2:41 PM EST) Only the most recent of3 resultswithin the time period is included. [facility] TROPONIN I HIGH SENSITIVITY <2.7 <3.5 - 17.0 ng/L [facility] Comment:The [facility] high sens itivity Troponin-I results should beused in conjunction with other diagnostic information suchas ECG, clinical observations and information, and patientsymptoms to aid in the diagnosis of NE. 09/12/2024 2:41 PM EST 09/12/2024 2:45 PM EST Generic External Data Provider LAB BLOOD ORDERAB LES Final Result Performing Organization Address [facility] Co de Phone Number [facility] [address] [place] [phone] * SARS-CoV-2 RNA, Influenza A/B, and RSV RNA, Ql NAAT (09/12/2024 2:41 PM EST) Only the most recent of2 resultswithin the time period is included. [facility] Influenza A PCR NEGATIVE Negative [facility] Influenza B PCR NEGATIVE Negative [facility] Resp Syncy Virus RNA Qual PCR NEGATIVE Negative [facility] SARS COV2 PCR NEGATIVE Negative [facility] Comment:All test results mus t be [...] use by authorized laboratories.Testing performed on the [employer] GeneXpert utilizingreal-time RT-PCR.All SARS CoV2 and positive influenza A/B results arereported to [facility]. 09/12/2024 2:41 PM EST 09/12/2024 2:45 PM EST us Generic External Data Provider LAB MICROBIOLOGY - GENERAL ORDERABLES Final Result [facility] [address] [place] [address] [phone] * (ABNORMAL) CBC auto differential (09/12/2024 2:41 PM EST) Only the most recent of2 resultswithin the time period is included. White Blood Count 11.6(H) 4.8 - 10.8 X10*3/uL [facility] Red Blood Count 4.89 4.20 - 5.50 X10*6/uL [facility] Hemoglobin 13.6 12.0 - 16.0 g/dl [facility] Hematocrit 39.5 37.0 - 47.0 % [facility] Mean Corpuscular Volume 80.8 80.0 - 98.0 fL [facility] Mean Corpuscular Hemoglobin 27.8 27.0 - 33.0 pg [facility] Mean Corpuscular HGB Conc 34.4 31.0 - 35.0 g/dl [facility] Red Cell Distribution Width 12.9 11.0 - 16.0 % [facility] Platelet Count 290 160 - 400 X10*3/uL [facility] Mean Platelet Volume 9.0(L) 9.4 - 12.3 fL [facility] Neutrophils Percent Auto 84.5(H) 45 - 73 % [facility] Imm Gran Pct Auto 0.4 0.0 - 0.4 % [facility] Lymphocytes Percent Auto 9.4(L) 20 - 40 % [facility] Monocytes Percent Auto 4.8 2 - 11 % [facility] Eosinophils Percent Auto 0.7 0 - 4 % [facility] Basophils Percent Auto 0.2 0 - 2 % [facility] NRBC Pct Auto 0.0 0.0 - 0.2 /100WBC [facility] Neutrophils Absolute Auto 9.8(H) 2.0 - 8.3 x10*3/uL [facility] Imm Gran Abs Auto 0.05(H) 0.00 - 0.03 X10*3/uL [facility] Lymphocytes Absolute Auto 1.1(L) 1.2 - 4.9 X10*3/uL [facility] Monocytes Absolute Auto 0.6 0.1 - 1.2 X10*3/uL [facility] Eosinophils Absolute Auto 0.1 0.0 - 0.4 X10*3/uL [facility] Basophils Absolute Auto 0.0 0.0 - 0.2 X10*3/uL [facility] NRBC Abs Auto 0.000 0.0 - 0.012 X10*3/uL [facility] 09/12/2024 2:41 PM EST 09/12/2024 2:45 PM EST us Generic External Data Provider LAB BLOOD ORDERAB LES Final Result Performing Organization Address City/State/[facility] Co de Phone Number [facility] [address] [place] [phone] * (ABNORMAL) Partial Thromboplastin Time, Activated (APTT) (09/12/2024 2:41 PM EST) Partial Thromboplastin Time 24.8(L) 26.0 - 36.8 SEC [facility] Comment:For information rega rding the monitoring of direct thrombininhibitors, please refer to Pharmacy. 09/12/2024 2:41 PM EST 09/12/2024 2:45 PM EST us Generic External Data Provider LAB BLOOD ORDERAB LES Final Result Performing Organization Address [facility] Co de Phone Number [facility] [address] [place] [phone] * (ABNORMAL) Prothrombin Time-INR (09/12/2024 2:41 PM EST) Prothrombin Time 19.2(H) 10.9 - 12.4 SEC [facility] INTERNATIONAL NORM RATIO 1.6(H) 0.9 - 1.1 [facility] Comment:INTERNATIONAL NORMAL IZED RATIO (INR) REFERENCE RANGES Reference RangeFor patients not on anticoagulant therapy: 0.9 - 1.1INR ranges for oral anticoagulanttherapy:For prevention and treatment of venous thrombosis and pulmonary embolism: 2.0 - 3.0For acute myocardial infarction with aspirin therapy: 2.0 - 3.0For acute myocardial infarction without aspirin therapy: 3.0 - 4.0For patients with mechanical prosthetic heart valves: 2.5 - 3.5 09/12/2024 2:41 PM EST 09/12/2024 2:45 PM EST us Generic External Data Provider LAB BLOOD ORDERAB LES Final Result Performing Organization Address [facility] de Phone Number [facility] [address] [place] [phone] * Magnesium (09/12/2024 2:41 PM EST) Only the most recent of2 resultswithin the time period is included. Magnesium 1.7 1.6 - 2.6 mg/dL [facility] 09/12/2024 2:41 PM EST 09/12/2024 2:45 PM EST Generic External Data Provider LAB BLOOD ORDERAB LES Final Result Performing Organization Address City/[facility]/ZIP Co de Phone Number [facility] [address] [place] [phone] * (ABNORMAL) Hepatic Function Panel (09/12/2024 2:41 PM EST) Only the most recent of2 resultswithin the time period is included. Bilirubin, Total 1.3(H) 0.0 - 1.0 mg/dL [facility] Bilirubin, Direct 0.5 0.0 - 0.5 mg/dL [facility] Aspartate Amino Transferase 17 5 - 31 U/L [facility] Alanine Aminotransferase 38(H) 0 - 31 U/L [facility] Total Protein 7.9 6.5 - 8.0 g/dL [facility] Albumin Level 4.4 3.5 - 5.0 g/dL [facility] Alkaline Phosphatase 85 39 - 117 U/L [facility] 09/12/2024 2:41 PM EST 09/12/2024 2:45 PM EST us Generic External Data Provider LAB BLOOD ORDERAB LES Final Result [facility] [address] [place] [phone] [phone] * (ABNORMAL) Basic Metabolic Panel (09/12/2024 2:41 PM EST) Only the most recent of2 resultswithin the time period is included. Sodium 134(L) 135 - 145 mmol/L [facility] Potassium 3.4 3.3 - 5.1 mmol/L [facility] Chloride 105 96 - 108 mmol/L [facility] Carbon Dioxide 20(L) 22 - 29 mmol/L [facility] Anion Gap 12 12 - 20 [facility] Urea Nitrogen (BUN) 9 9 - 16 mg/dL [facility] Creatinine, Serum 0.78 0.5 - 1.4 mg/dL [facility] Creatinine Clr Calc Pharmacy 119.9 [facility] Comment:Provided height and weight: 170.18 cm,86.183 kg.eGFR (calculated from the MDRD study equation) and eCrCl(calculated from the Cockcroft-Gault equation) are based ondifferent parameters and may not yield comparable results.If eCrCl result is absurd, please check patient'sheight/weight. Estimated Glomerular Filt Rate >60 [facility] Comment:Chronic Kidney Disea se: Estimated GFR < 60 mL/min/1.31x5Uydncx Kidney Disease: Estimated GFR < 15 mL/min/1.73m2 Glucose 136(H) 60 - 115 mg/dL [facility] Calcium 9.4 8.4 - 10.2 mg/dL [facility] 09/12/2024 2:41 PM EST 09/12/2024 2:45 PM EST us Generic External Data Provider LAB BLOOD ORDERAB LES Final Result Performing Organization Address City/State/[facility] Co de Phone Number [facility] [address] [place] [phone] * XR Chest 1 View (09/12/2024 2:07 PM EST) Anatomical Region Laterality Modality Chest Radiographic Amna ging 09/12/2024 2:07 PM EST Narrative 09/12/2024 2:22 PM EST ? [facility] ?[address] ?[place] [address] ?XRay Report ? Signed ? Patient: Nicole,Roshelly ?MR#: [id number] ?? 362 ? : 1995 ?Acct:[id number] ? Age/Sex: 29 / F ?ADM Date: 09/12/24 ? Loc: HO.ED ? Attending Dr: ? Ordering Physician: Criss Adame ?? Date of Service: 09/12/24 ?? Procedure(s): XR chest 1V ?? Accession Number(s): [id number] ? cc: Vannesa Roca MD; Criss Adame [...] DD/ 1407 ? TD/TT: 09/12/24 1411 ? Direct Chill Caster: ? Procedure Note Donotgarrettinterpreter, Image - 09/12/2024 [place] [address] XRay Report Signed Patient: Jessica NicoleMR#: [id number] 362 : 1995Acct:[id number] Age/Sex: M Date: 09/12/24 Loc: HO.ED Attending Dr: Ordering Physician: Criss Adame Date of Service: 09/12/24 Procedure(s): XR chest 1V Accession Number(s): [id number] cc: Vannesa Roca MD; Criss Adame EXAMINATION: XR CHEST CLINICAL INFORMATION: sob COMPARISON: August 26, 2024. TECHNIQUE: Frontal view of the chest was obtained. FINDINGS: No consolidation, pleural effusion or pneumothorax. Cardiomediastinal silhouette is normal in size. Osseous structures are intact. XR/XR chest 1V IMPRESSION: No acute airspace disease. Electronically signed by: Mehdi Cheatham MD 09/12/2024 02:19 PM EST Dictated By: Mehdi Brewsetr MD Signed By: <Electronically signed by Mehdi Wilson MDin OV> 09/12/24 1419 DD/ 1407 TD/TT: 09/12/24 1411 Direct Chill Caster: [facility] External Provider IMG XR PROCEDURES Final Result * CTA Chest PE Protocal (08/26/2024 11:04 PM EST) Anatomical Region Laterality Modality Body, Chest Computed Tomogra phy 08/26/2024 11:0 4 PM EST Narrative 08/26/2024 11:06 PM EST ? [facility] ?[address] ?[place] [address] ? [address] Scan Report ? Signed ? Patient: Nicole,Maria Lly ?MR#: [id number] ?? 362 ? : 1995 ?Acct:[id number] ? Age/Sex: 29 / F ?ADM Date: 08/26/24 ? Loc: HO.ED ? Attending Dr: ? Ordering Physician: Vickie Soares DO ?? Date of Service: 08/26/24 ?? Procedure(s): CT angio chest PE protocol ?? Accession Number(s): [id number] ? cc: Vannesa Roca MD; Vickie Soares DO ? Report Number: ?? [id number]: Total DLP = ??285.00 mGy-cm ? CLINICAL [...] ? DD/ 03 ? TD/TT: 08/26/242303 ? Direct Chill Caster: ? Procedure Note Luc, Gena - 08/26/[address] [place] [address] CT Scan Report Signed Patient: Terri Nicole#: [id number] 362 : 1995Acct:[id number] Age/Sex: 29 / FADM Date: 08/26/24 Loc: HO.ED Attending Dr: Ordering Physician: Vickie Soares DO Date of Service: 08/26/24 Procedure(s): CT angio chest PE protocol Accession Number(s): [id number] cc: Vannesa Roca MD; Vickie Soares DO Report Number: [id number]: Total DLP = 285.00 mGy-cm CLINICAL HISTORY: [...] in OV> 08/26/242304 DD/ 03 TD/TT: 08/26/242303 Direct Chill Caster: [facility] External Provider IMG CT PROCEDURES Final Result * D Dimer High Sensitivity (08/26/2024 9:17 PM EST) D Dimer High Sensitivity 165 NG/ML [facility] Comment:D-DIMER HS REFERENCE RANGENote: Our [...] ORDERAB LES Final Result Performing Organization Address [facility] Phone Number [facility] [address] [place] [phone] * B Type Natriuretic Peptide (BNP) (08/26/2024 9:17 PM EST) B Type Natriuretic Peptide 11 <100 pg/mL [facility] Comment:For those patients w ho are being treated with Natrecor(nesiritide, recombinant BNP), BNP testing should beperformed at least two hours post treatment in order toensure that only endogenous levels of BNP are detected. 08/26/2024 9:17 PM EST 08/26/2024 9:23 PM EST us Generic External Data Provider LAB BLOOD ORDERAB LES Final Result Performing Organization Address [facility] Phone Number [facility] [address] [place] [phone] * Lactic Acid (08/26/2024 9:17 PM EST) Pathologist [facility] Lactic Acid 1.0 0.5 - 2.0 mmol/L [facility] 08/26/2024 9:17 PM EST 08/26/2024 9:23 PM EST Generic External Data Provider LAB BLOOD ORDERAB LES Final Result Performing Organization Address [facility] de Phone Number [facility] [address] [place] [phone] * XR Chest 2 Views (08/26/2024 7:27 PM EST) Anatomical Region Laterality Modality Chest Radiographic Amna ging 08/26/2024 7:27 PM EST Narrative 08/26/2024 7:29 PM EST ? [place] [facility] ?[address] ?[place] [address] ?XRay Report ? Signed ? Patient: Nicole,Roshelly ?MR#: [id number] ?? 362 ? : 1995 ?Acct:[id number] ? Age/Sex: 29 / F ?ADM Date: 08/26/24 ? Loc: HO.ED ? Attending Dr: ? Ordering Physician: Nataly Richard ?? Date of Service: 08/26/24 ?? Procedure(s): XR chest 2V ?? Accession Number(s): [id number] ? cc: Vannesa Roca MD; Nataly Richard [...] Zeb Murphy MD in OV> ? 08/26/24 1928 ? DD/ 26 ? TD/TT: 08/26/241926 ? Direct Chill Caster: ? Procedure Note Donblackgarrettremater, Image - 08/26/2024 [place] [address] XRay Report Signed Patient: Jessica NicoleMR#: [id number] 362 : 1995Acct:[id number] Age/Sex: 29 / FADM Date: 08/26/24 Loc: HO.ED Attending Dr: Ordering Physician: Nataly Richard Date of Service: 08/26/24 Procedure(s): XR chest 2V Accession Number(s): [id number] cc: Vannesa Roca MD; Nataly Richard CLINICAL [...] in OV> 08/26/241927 DD/ 26 TD/TT: 08/26/241926 Direct Chill Caster: [facility] External Provider IMG XR PROCEDURES Final Result * Strep A Nucleic Acid (08/26/2024 7:26 PM EST) IDNOW SERIAL# [id number] [facility] Strep A Nucleic Acid Negative Negative [facility] Comment:All test results [...] GENERAL ORDERABLES Final Result Performing Organization Address [facility] Co de Phone Number [facility] [address] [place] [phone] * (ABNORMAL) Sed Rate by Modified Alexaren (08/26/2024 7:26 PM EST) Pathologist [facility] Erythrocyte Sedimentation Rate 22(H) 0 - 20 MM/HR [facility] Comment:Patients with polycy themia and many hemoglobin abnormalitiesmay have depressed sed rates whereas patients with anemiamay have elevated sed rates. 08/26/2024 7:26 PM EST 08/26/2024 9:33 PM EST Generic External Data Provider LAB BLOOD ORDERAB LES Final Result Performing Organization Address [facility] Co de Phone Number [facility] [address] [place] [phone] * (ABNORMAL) C-reactive Protein (08/26/2024 7:26 PM EST) Pathologist [facility] C Reactive Protein 1.38(H) < or = 0.50 mg/dL [facility] 08/26/2024 7:26 PM EST 08/26/2024 7:31 PM EST Generic External Data Provider LAB BLOOD ORDERAB LES Final Result Performing Organization Address [facility]/ZIP Co de Phone Number [facility] [address] [place] [phone] * hCG, Total, Quantitative (08/26/2024 7:26 PM EST) HCG Quantitative <2 mIU/mL [facility] Comment:Weeks post LMP Appro ximate hCG(Last Menstrual Period) Range (mIU/ml)3 - 4 weeks 9 - 1304 - 5 weeks 75 - 2,6005 - 6 weeks 850 - 20,8006 - 7 weeks 4000 - 100,2007 - 12 weeks 11,500 - 289,67780 - 16 weeks 18,300 - 137,87699 - 29 weeks (2nd trimester) 1,400 - 53,08998 - 41 weeks (3rd trimester) 940 - [...] ORDERAB LES Final Result Performing Organization Address City/[facility]/ZIP Co de Phone Number [facility] [address] [place] [phone] * Hepatitis C Antibody with Reflex to HCV, RNA, Quantitative, Real-Time PCR (10/31/2023 10:10 AM EDT) Hepatitis C Antibody Nonreactive Nonreactive [facility] Comment:Antibodies to HCV no t detected; does not exclude early acuteHCV infection. Blood Venous blood specimen / Unknown 10/31/2023 10:10 AM EDT 10/31/2023 11:53 AM EDT Ilda Andujar MD LAB BLOOD ORDERABLES Final Result Performing Organization Address [facility]/ZIP Co de Phone Number [facility] [address] [place] [phone] * (ABNORMAL) Lipid Panel, Standard (10/31/2023 10:10 AM EDT) Triglycerides 89 <150 mg/dL [facility] Comment:Desirable Triglyceri de: less than 150 mg/dLBorderline High Triglyceride 150-199 mg/dLHigh Triglyceride: 200-499 mg/dLVery High Triglyceride: greater than or equal to 5OO mg/dL Cholesterol 163 <200 mg/dL [facility] Comment:Desirable Cholestero l: less than 200 mg/dLBorderline High Cholesterol: 200-239 mg/dLHigh Cholesterol: greater than 239 mg/dL LDL Cholesterol Calculated 104(H) <100 mg/dL [facility] Comment:Desirable LDL: less than 100 mg/dLNear Optimal/Above Optimal LDL: 110- 129 mg/dLBorderline High LDL: 130-159 mg/dLHigh LDL: 160-189 mg/dLVery High LDL: greater than or equal to 190 mg/dL HDL Cholesterol 42 >40 mg/dL [facility] Comment:Desirable HDL: great er than 40 mg/dL Note: This HDL assay may give artificially low results in patients with liver disease. Blood Venous blood specimen / Unknown 10/31/2023 10:10 AM EDT 10/31/2023 11:53 AM EDT Ilda Andujar MD LAB BLOOD ORDERABLES Final Result Performing Organization Address [facility]/ZIP Co de Phone Number [facility] [address] [place] [phone] [phone] * HIV-1 antibody, EIA (01/16/2017) External HIV-1 Antibody Negative Blood Venous blood specimen / Unknown us Historical Provider LAB BLOOD ORDERABLES Lou tellez Result from Last 3 Months or Most Recently Relevant to Health Maintenance Insurance [facility] C3 [facility] MEDICAID STAND ADULT Advance Directives Documents on File Type Date Recorded Patient Mri Manager Expl anation Advance Directives and Living Will 04/25/2024 11:16 AM Health Care Proxy Care Teams Transactional Attorney Relationship Specialty Start Date End Date [place], MD Ilda [address] [place] [address] PCP - General Family Medicine 07/20/17 Pankaj Lopez MD [address] [place] [address] Drive 3[address] [place] [address] Cardiology 08/27/24 Glenn Baptiste MD [address] [place] [address] Hematology and Oncology 10/18/24 Tg Bernstein [facility] Psychology 10/18/24 Shani Rodríguez [place], [place] Psychiatry 10/18/24
--- OUTSIDE RECORDS SUMMARY | 2024-10-30 14:21 | XMS_ITS | Encounter Summary ---
Author Organization [employer] Address [address] [facility] 7t [place] [address] Care Team Providers Care Senior Energy Analyst Name Role Phone [place] MD Primary Care Provider [phone] Pankaj Lopez MD Unavailable Glenn Baptiste MD Unavailable [phone] Encounter Details Date Type Department Care Team ([facility] st Contact Info) Description 10/18/2024 Population Health Risk Score [facility] (C3) Department [address] [facility] [address] [place] [phone] Provider, Population Health Generic Social History Tobacco Use Types Packs/Day Years [...] Description 11/18/2024 11:00 AM EDT Office Visit [facility] [address] [place] [phone] Bre Van 01/20/2025 10:30 AM EDT Office Visit [facility] [address] [place] [phone] Ilda Andujar MD [address] [place] [address] documented as of this encounter Visit Diagnoses Not on filedocumented in this encounter Additional Health Concerns Assessment Noted Time PHQ-9 Depression Total Score: 2 10/19/19 25 9:59 AM EDT documented as of this encounter Care Teams Senior Energy Analyst Relationship Specialty Start Date End Date Ilda Andujar MD [address] [place] [address] PCP - General Family Medicine 07/20/17 Pankaj Lopez MD [address] [place] [address] 3rd [place] [address] Cardiology 08/27/24 Glenn Baptiste MD [address] [place] [address] Hematology and Oncology 10/18/24 Tg Bernstein [facility] [place] Psychology 10/18/24 Shani Rodríguez [place], [place] Psychiatry 10/18/24 documented as of this encounter
== END 2024-10-30 13:58 | disposition home or self-care (01) ==
LOC: HO.HCS 11:52
PROVIDERS: PCP Family Medicine
DX: I21.4 Non-ST elevation (NSTEMI) myocardial infarction (principal); Z98.890 Other specified postprocedural states; Z09 Encounter for follow-up examination after completed treatment for conditions other than malignant neoplasm
CPT/HCPCS: 99214

== ENCOUNTER → 2024-10-30 11:52 | Outpatient (BNVA) | payer MEDICAID, SELFPAY | PROVIDERS: PCP Family Medicine | DX: Z09 Encounter for follow-up examination after completed treatment for conditions other than malignant neoplasm (principal); I25.2 Old myocardial infarction; Z98.890 Other specified postprocedural states | CPT/HCPCS: 99212 ==

== ENCOUNTER 2024-11-14 12:46 | Outpatient (REF) | payer MEDICAID, SELFPAY ==
[2024-11-14 13:44] LABS: Anion Gap 11 (12-20); Blood Urea Nitrogen 12 mg/dL (9-16); Calcium 9.3 mg/dL (8.4-10.2); Carbon Dioxide 26 mmol/L (22-29); Chloride 108 mmol/L (96-108); Estimated Glomerular Filt Rate > 60; Glucose Random 120 mg/dL (60-115); Potassium 4.3 mmol/L (3.3-5.1); Sodium 141 mmol/L (135-145)
--- OUTSIDE RECORDS SUMMARY | 2024-11-14 15:18 | XMS_ITS | Encounter Summary ---
Author Organization [employer] Address [address] [facility] [address] [place] [address] Care Team Providers Care Instructional Material Director Name Role Phone Ilda Andujar MD Primary Care Provider [phone] Pankaj Lopez MD Unavailable Glenn Baptiste MD Unavailable [phone] Encounter Details Date Type Department Care Team (Late st Contact Info) Description 11/15/2022 Abstract [facility] [address] [place] [address] Ilda Andujar MD [address] [place] [address] Social History Tobacco Use Types Packs/Day Years [...] Description 11/18/2024 11:00 AM EDT Office Visit [facility] [address] [place] [address] Bre Van 01/20/2025 10:30 AM EDT Office Visit [facility] [address] [place] [address] Ilda Andujar MD [address] [place] [address] documented as of this encounter Procedures Procedure Name Priority Date/Time Associated Diagnosis Comments HIV-1 ANTIBODY, EIA Routine 01/16/2017 LIPID PANEL, STANDARD Routine 01/16/2017 documented in this encounter Results * HIV-1 antibody, EIA (01/16/2017) Pathologist [facility] External HIV-1 Antibody Negative Blood Venous blood specimen / Unknown Historical Provider LAB BLOOD ORDERABLES Lou l Result * Lipid Panel, Standard (01/16/2017) Pathologist [facility] Triglycerides 62 40 - 160 mg/dL Cholesterol 168 0 - 200 mg/dL HDL Cholesterol 39 35 - 70 mg/dL LDL Cholesterol 111 mg/dL Blood Venous blood specimen / Unknown Historical Provider LAB BLOOD ORDERABLES Lou l Result documented in this encounter Visit Diagnoses Not on filedocumented in this encounter Care Teams Instructional Material Director Relationship Specialty Start Date End Date Ilda Andujar MD [address] [place] [address] PCP - General Family Medicine 07/20/17 Pankaj Lopez MD [address] [facility] 3rd [place] [address] Cardiology 08/27/24 Glenn Baptiste MD [address] [place] [address] Hematology and Oncology 10/18/24 Tg Bernstein [facility] [place] Psychology 10/18/24 Shani Rodríguez [place], [place] Psychiatry 10/18/24 documented as of this encounter
--- OUTSIDE RECORDS SUMMARY | 2024-11-14 15:18 | XMS_ITS | Encounter Summary ---
Author Organization [employer] Address [address] [facility] [address] [place] [address] Care Team Providers Care Color Television Console Monitor Name Role Phone [place]lda montiel MD Primary Care Provider [phone] Pankaj Lopez MD Unavailable Glenn Baptiste MD Unavailable [phone] Reason for Visit * Reason Onset Date Comments rs appt 08/01/2024 Encounter Details Date Type Department Care Team ([facility] st Contact Info) Description 08/01/2024 Telephone [facility] [address] [place] [address] Pretty Aguillonanpreet [address] [place], [place] [phone] rs appt Social History Tobacco Use Types [...] Description 11/18/2024 11:00 AM EDT Office Visit [facility] ADULT D[facility]AL [address] [place] [address] Bre Van 01/20/2025 10:30 AM EDT Office Visit [facility] MEDICINE [address] [place] [address] Ilda Andujar MD [address] [place] [address] documented as of this encounter Visit Diagnoses Not on filedocumented in this encounter Additional Health Concerns Assessment Noted Time PHQ-9 Depression Total Score: 13 024 3:33 PM EDT documented as of this encounter Care Teams Color Television Console Monitor Relationship Specialty Start Date End Date Ilda Andujar MD [address] [place] [address] PCP - General Family Medicine 07/20/17 Pankaj Lopez MD [address] [place] [address] 3rd [place] [address] Cardiology 08/27/24 Glenn Baptiste MD [address] [place] [address] Hematology and Oncology 10/18/24 Tg Bernstein [facility] Psychology 10/18/24 Shani Rodríguez [place], [place] Psychiatry 10/18/24 documented as of this encounter
--- OUTSIDE RECORDS SUMMARY | 2024-11-14 15:18 | XMS_ITS | Encounter Summary ---
Author Organization [facility] [employer] Address [address] [place] [address] Care Team Providers Care Vp Public Relations Name Role Phone Ilda Andujar MD Primary Care Provider [phone] Pankaj Lopez MD Unavailable Glenn Baptiste MD Unavailable [phone] Encounter Details Date Type Department Care Team (Late st Contact Info) Description 11/14/2024 Orders Only GENERIC EXTERNAL DATA DEPARTMENT Provider, Generic External Data Social History Tobacco Use Types Packs/Day Years [...] Description 11/18/2024 11:00 AM EDT Office Visit [facility] [address] [place] [address] Bre Van 01/20/2025 10:30 AM EDT Office Visit [facility] [address] [place] [address] Ilda Andujar MD [address] [place] [address] documented as of this encounter Procedures Procedure Name Priority Date/Time Associated Diagnosis Comments BASIC METABOLIC PANEL Routine 11/14/2024 12:49 PM EDT documented in this encounter Results * (ABNORMAL) Basic Metabolic Panel (11/14/2024 12:49 PM EDT) Sodium 141 135 - 145 mmol/L [facility] Potassium 4.3 3.3 - 5.1 mmol/L [facility] Chloride 108 96 - 108 mmol/L [facility] Carbon Dioxide 26 22 - 29 mmol/L [facility] Anion Gap 11(L) 12 - 20 [facility] Urea Nitrogen (BUN) 12 9 - 16 mg/dL [facility] Creatinine, Serum 0.80 0.5 - 1.4 mg/dL [facility] Estimated Glomerular Filt Rate >60 [facility] Comment:Chronic Kidney Disea se: Estimated GFR < 60 mL/min/[id number] Kidney Disease: Estimated GFR < 15 mL/min/1.73m2 Glucose 120(H) 60 - 115 mg/dL [facility] Calcium 9.3 8.4 - 10.2 mg/dL [facility] 11/14/2024 12:4 9 PM EDT 11/14/2024 12:54 PM EDT us Generic External Data Provider LAB BLOOD ORDERAB LES Final Result [facility] [address] [place] [address] [phone] documented in this encounter Visit Diagnoses Not on filedocumented in this encounter Additional Health Concerns Assessment Noted Time PHQ-9 Depression Total Score: 2 10/19/19 25 9:59 AM EDT documented as of this encounter Care Teams Vp Public Relations Relationship Specialty Start Date End Date Ilda Andujar MD [address] [place] [address] PCP - General Family Medicine 07/20/17 Pankaj Lopez MD [address] [place] [address] [address] [place] [address] Cardiology 08/27/24 Glenn Baptiste MD [address] [place] [phone] Hematology and Oncology 10/18/24 Tg Bernstein [facility] Psychology 10/18/24 Shani Rodríguez [place], [place] Psychiatry 10/18/24 documented as of this encounter
--- OUTSIDE RECORDS SUMMARY | 2024-11-14 15:18 | XMS_ITS | Clinical Summary ---
Author Organization [employer] Address [address] [place] [address] Care Team Providers Care Memorial Marker Designer Name Role Phone Ilda Andujar MD Primary Care Provider [phone] Pankaj Lopez MD Unavailable Glenn Baptiste MD Unavailable [phone] Allergies No known active allergies Medications * This document contains information received from the source organization and may not represent a complete record from that organization. colchicine 0.6 MG tabletIndication s:NSTEMI (non-ST elevated myocardial infarction) (CMS/HCC) Take 0.6 mg by mouth 2 times daily. 08/30/19 25 Active sertraline (Zoloft) 25 MG tablet Take 1 tablet by mouth Once per day. 09/04/19 25 Active spironolactone (Aldactone) 50 MG tabletIndication s:Gender dysphoria Take 1 tablet (50 mg) by mouth Once per day. 90 tablet 3 10/19/19 25 026 Active aspirin 81 MG EC tabletIndication s:NSTEMI (non-ST elevated myocardial infarction) (CMS/HCC) Take 1 tablet (81 mg) by mouth Once per day. 90 tablet 3 10/19/19 25 Active atorvastatin (Lipitor) 40 MG tabletIndication s:NSTEMI (non-ST elevated myocardial infarction) (CMS/HCC) Take 1 tablet (40 mg) by mouth Once per day. 90 tablet 3 10/19/19 25 Active sertraline (Zoloft) 25 MG tabletIndication s:Depressive disorder Take by mouth Once per day. Per psych Shani Rodríguez Active albuterol 108 (90 Base) MCG/ACT inhalerIndicatio ns:Mild intermittent asthma without complication Inhale 2 puffs every 4 (four) hours if needed for wheezing. 18 g 11/01/19 25 026 Active spironolactone (Aldactone) 50 MG tabletIndication s:Gender dysphoria Take 1 tablet (50 mg) by mouth Once per day. 30 tablet 11 06/07/20 24 025 Discontinued(Re order (will not trigger notification to Pharmacy)) albuterol 108 (90 Base) MCG/ACT inhalerIndicatio ns:Mild intermittent asthma without complication Inhale 2 puffs every 4 (four) hours if needed for wheezing. 18 g 06/25/20 24 025 Discontinued(Re order (will not trigger notification to Pharmacy)) aspirin 81 MG EC tabletIndication s:NSTEMI (non-ST elevated myocardial infarction) (CMS/HCC) Take 81 mg by mouth Once per day. 08/27/19 025 Discontinued(Re order (will not trigger notification to Pharmacy)) atorvastatin (Lipitor) 40 MG tabletIndication s:NSTEMI (non-ST elevated myocardial infarction) (CMS/HCC) Take 40 mg by mouth Once per day. 08/27/19 025 Discontinued(Re order (will not trigger notification to Pharmacy)) Active Problems Problem Noted Date Diagnosed Date Depressive disorder 10/18/2024 Overview (10/18/2024): -[email or web address] dx pt with social anxiety disorder and PTSD on 12/05/23 -referred to behavioral health 04/24/24 -sees Therapist in [place], sen Jalloh. Assessment & Plan (10/18/2024 10:26 AM EDT): -[email or web address] dx pt with social anxiety disorder and PTSD on 12/05/23 -referred to behavioral health 04/24/24 -sees Therapist in [place], sen Jalloh. Class 1 obesity due to [...] (non-ST elevated myocardial infarction) 0 08/27/2024 Overview (10/31/2024): NSTEMI 08/27/24, Per aerospace project engineer Dr. Lopez, Patient without any significant risk factors currently undergoing gender transition with hormonal therapy presents with acute onset chest pain with elevated troponins consistent with myocardial injury consistent with NSTEMI. Possible etiologies include SCAD, plaque rupture and erosion much less likely although possible. Other possibility includes myocarditis given her recent ear infection although this was more than a month ago. She was treated as an NSTEMI with IVheparin, aspirins, statins and metoprolol therapy. Found to have wall motion abnormalities in the RCA territory on echocardiogram Transferred to [facility]. -in [facility] troponin peaked at 73. EKG without [...] colchicine 0.6mg bid for x months (started 08/30/24) -hematology states would like to avoid estrogen, if at all possible. -She will return to hematology in a couple of months for a follow-up visit. Seen by Hematology 10/17/24 who recommend coagulative work and avoiding Estrogen if possible right now and as long as possible in the future. -has appt. with cardiology 10/31/24 -08/27/2024-patient's echocardiogram showed a normal LV EF between 55-60% with regional wall motion abnormality in the RCA territory. -seen by cardiology 10/31/24 Per recommendation, cardiac MRI ordered to look for further evaluate the myocardial injury. Further treatment based on findings. -She had been taking Provera and estradiol and spironolactone, as the hormonal therapy. -Question is if that led to the ischemic event. The other possibility is that of an underlying hypercoagulable state. -seen by hematology 10/17/24 proceed with a hypercoagulable workup. -continue on baby Aspirin. Assessment & Plan (10/18/2024 10:24 AM EDT): NSTEMI 08/27/24, Per aerospace project engineer Dr. Lopez, Patient without any significant risk [...] the RCA territory on echocardiogram Transferred to [facility]. She had been taking Provera and estradiol and spironolactone, as the hormonal therapy. -Question is if that led to the ischemic event. -The other possibility is that of an underlying hypercoagulable state. -in [facility] troponin peaked at 73. EKG without [...] up cardiology who had a Non ST-elevation AK, back in August. -seen by hematology 10/17/24 [...] (09/09/2024 2:22 PM EST): NSTEMI 08/27/24, Per aerospace project engineer Dr. Lopez, Patient without any significant risk [...] the RCA territory on echocardiogram Transferred to [facility]. -in [facility] troponin peaked at 73. EKG without [...] traumatic stress disorder (PTSD) 04/24/2024 Overview (10/18/2024): -[facility] dx pt with social anxiety disorder and PTSD on 12/05/23 -referred to behavioral health 04/24/24 -sees Therapist in [place], named Yeimi. Assessment & Plan (10/18/2024 10:15 AM EDT): -[facility] dx pt with social anxiety disorder and PTSD on 12/05/23 -referred to behavioral health 04/24/24 -sees Therapist in [place], named Yeimi. Assessment & Plan (04/24/2024 3:39 PM EDT): -[facility] dx pt with social anxiety disorder and PTSD on 12/05/23 -referred to behavioral health 04/24/24 Social anxiety disorder 04/24/2024 Overview (10/18/2024): -[facility] dx pt with social anxiety disorder and PTSD on 12/05/23 -referred to behavioral health 04/24/24 -sees Therapist in [place], named Yeimi. Assessment & Plan (10/18/2024 10:15 AM EDT): -[facility] dx pt with social anxiety disorder and PTSD on 12/05/23 -referred to behavioral health 04/24/24 -sees Therapist in [place], named Yeimi. Assessment & Plan (05/01/2024 2:32 [...] her medical chart. He was referred [facility] in the past for autism evaluation. Pt reports he is waiting for results. Difficulty focusing and keeping up with appointments is main barrier to access MH services. Pt reports due to lack of concentration he keeps missing calls and lacking engagement. Financial concern is also a significant barrier. Pt lost some SSI benefits. Referral for CM will be placed to assist pt with resources and urgent SDOH needs. clinician engaged patient with active/reflective listening. Reviewed and assessed for risk, current stressors and protective factors. Provided information for CB and [facility] help line. clinician will place referrals for Psychiatry services and OP individual therapy. Pt is aware of importance of connecting with services. Provided coping mechanisms to incorporate into daily routine. Assessment & Plan (04/24/2024 3:39 PM EDT): -[facility] dx pt with social anxiety disorder and PTSD on 12/05/23 -referred to behavioral health 04/24/24 Pain 04/24/2024 Gender dysphoria 10/16/2023 Overview (10/18/2024): -Pt uses she/her pronouns -Has been on medication but declines at this time due to difficulties taking medications -Given the number for [facility] [phone] on 10/16/2023 - Given a list of [...] [facility] [phone] on 10/16/2023 - Given a list of [...] [facility] [phone] on 10/16/2023 - Given a list of [...] [facility] [phone] on 10/16/2023 - Given a list of voice coaches on 10/16/2023 Muscle cramping 04/19/2023 Overview (04/19/2023): Magnesium given 04/19/2023. Assessment & Plan (04/19/2023 11:19 AM EDT): Magnesium given 04/19/2023. Other specified health status 04/17/2023 Overview (10/18/2024): -next physical exam due after 10/18/25 -eye care referral to [facility] on 10/16/2023 -dental home is [facility] -health care proxy paper work filed 10/16/23 Assessment & Plan (10/18/2024 10:25 AM EDT): -next physical exam due after 10/18/25 -eye care referral to [facility] on 10/16/2023 -dental home is [facility] Dental -health care proxy paper work filed 10/16/23 Assessment & Plan (10/16/2023 10:50 AM EDT): -next physical exam due after 10/15/2024 -eye care referral to [facility] on 10/16/2023, pt wants to discuss getting new frames -dental home is [facility] Dental - Health care proxy paperwork [...] health 11/24/2022. -Refered to empowerment project by [facility]. Assessment & Plan (05/01/2024 10:26 AM EDT): [...] her medical chart. He was referred to [facility] in the past for autism evaluation. Pt [...] protective factors. Provided information for CB and [facility] help line. clinician will place referrals for Psychiatry services and OP individual therapy. Pt is aware of importance of connecting with services. Provided coping mechanisms to incorporate into daily routine. Assessment & Plan (10/16/2023 10:37 AM EDT): Evaluated by behavior [facility] 11/24/2022. -Refered to empowerment project by [facility]. Assessment & Plan (04/19/2023 10:56 AM EDT): Evaluated by behavior [facility] 11/24/2022. -Refered to empowerment project by [facility]. Autistic behavior 11/15/2022 Overview (06/07/2024): Pt presents as autistic and is having difficulties interacting. Pt would like to be evaluated in hopes they may have social training therapy. -Sent to behavioral [facility] for autism screening 11/24/2022. -Pt will see Iqra Mabry with [facility]. -Referal done to [facility] 04/19/2023 for adult autism teting done at [facility]. -Has an appointment at [facility] on 10/24/2023 at 2PM -[facility] did not meet criteria for Autism spectrum disorder. [facility] dx pt with social anxiety disorder and PTSD on 2023. -patient has behaviors consistent with Autisim Assessment & Plan (10/18/2024 10:27 AM EDT): Pt presents as autistic and is having difficulties interacting. Pt would like to be evaluated in hopes they may have social training therapy. -Sent to [facility] for autism screening 11/24/2022. -Pt will see Iqra Mabry with behavioral health. -Referal done to [facility] 04/19/2023 for adult autism teting done at [facility]. -Has an appointment at [facility] on 10/24/2023 at 2PM -[facility] did not meet criteria for Autism spectrum disorder. [facility] dx pt with social anxiety disorder and PTSD on 2023. -patient has behaviors consistent with Autisim Assessment & Plan (04/24/2024 3:38 PM EDT): Pt presents as autistic and is having difficulties interacting. Pt would like to be evaluated in hopes they may have social training therapy. -Sent to [facility] for autism screening 11/24/2022. -Pt will see Iqra Mabry with behavioral health. -Referal done to [facility] 04/19/2023 for adult autism teting done at [facility]. -Has an appointment at [facility] on 10/24/2023 at 2PM -[facility] dx pt with social anxiety disorder and PTSD on 12/05/23 Assessment & Plan (10/16/2023 10:21 AM EDT): Pt presents as autistic and is having difficulties interacting. Pt would like to be evaluated in hopes they may have social training therapy. -Sent to [facility] for autism screening 11/24/2022. -Pt will see Iqra Mabry with behavioral health. -Referal done to [facility] 04/19/2023 for adult autism teting done at [facility]. -Has an appointment at [place] [facility] on 10/24/2023 at 2PM Assessment & Plan (04/19/2023 11:17 AM EDT): Pt presents as autistic and is having difficulties interacting. Pt would like to be evaluated in hopes they may have social training therapy. -Sent to [facility] for autism screening 11/24/2022. -Pt will see Iqra Mabry with behavioral health. -Referal done to behavioral health 04/19/2023 for adult autism teting done at [facility]. Assessment & Plan (11/16/2022 11:50 AM EDT): [...] Encounters Date Type Department Care Team Description 11/14/2024 Orders Only GENERIC EXTERNAL DATA DEPARTMENT Provider, Generic External Data 10/31/2024 Refill [facility] [address] [place] [phone] Ilda Andujar MD Mild intermittent asthma without complication 10/28/2024 2:00 PM EDT Office Visit [facility] [address] [place] [phone] Fozia Malik ANP Acute cough (Primary Dx); Acute URI 10/18/2024 10:00 AM EDT Office Visit [facility] [address] [place] [phone] Ilda Andujar MD NSTEMI (non-ST elevated myocardial infarction) (CMS/HCC) (Primary Dx); Gender dysphoria; Post traumatic stress disorder (PTSD); Depressive disorder; Social anxiety disorder; Autistic behavior; Class 1 obesity due to excess calories without serious comorbidity with body mass index (BMI) of 31.0 to 31.9 in adult; Dietary counseling; Exercise counseling; Other specified health status 10/18/2024 Population Health Risk Score [facility] ([facility]) Department [address] [place] [id number] Provider, Population Health Generic 10/18/2024 Travel 09/18/2024 1:00 PM EST Office Visit [facility] [address] [place] [address] YoshivargheseMeryDavid, DMD 09/18/[address] [address] Ilda Andujar MD Appointment Request 09/16/2024 11:30 AM EST Office Visit [facility] [address] [place] [address] Alondra Sims, DDS History of third molar tooth extraction, unspecified edentulism class (Primary Dx) 09/16/[address] [address] Kandis Cazares MA chartprep 09/13/2024 Patient Outreach [address] [address] Ilda Andujar MD Transition Of Care (Tcm) 09/12/2024 Orders Only GENERIC EXTERNAL DATA DEPARTMENT Provider, Generic External Data 09/11/2024 10:30 AM EST Office Visit [facility] [address] [place] [address] Irma David, DMD History of third molar tooth extraction, unspecified edentulism class (Primary Dx) 09/09/2024 11:00 AM EST Office Visit [address] [address] Ilda Andujar MD NSTEMI (non-ST elevated myocardial infarction) ([facility]) (Primary Dx); Gender dysphoria; Autistic behavior; Mild intermittent asthma without complication; Class 1 obesity due to excess calories without serious comorbidity with body mass index (BMI) of 31.0 to 31.9 in adult; Dietary counseling; Exercise counseling; Other specified health status 09/09/[address] [address] Ilda Andujar MD Appointment Request 09/09/2024 Travel 09/09/2024 Telephone [facility] [address] [place] [phone] Ilda Andujar MD Chart Prep 09/02/2024 Patient Outreach [facility] [address] [place] [address] Ilda Andujar MD Transition Of Care (Tcm) (HDF scheduled) 08/28/2024 Patient Outreach [address] [address] Ilda Andujar MD Transition Of Care (Tcm) (HDF unscheduled) 08/26/2024 Orders Only [facility] External Provider, [facility] from Last 3 Months Immunizations Name Administration [...] your housing situation today? I have leona sing 10/18/[address] you li [...] Description 11/18/2024 11:00 AM EDT Office Visit [facility] [address] [place] [address] Bre Van 01/20/2025 10:30 AM EDT Office Visit [facility] [address] [place] [address] Ilda Andujar MD [address] [place] [address] Health Maintenance Due Date Last Done Comments [...] METABOLIC PANEL Routine 11/14/2024 12:49 PM EDT POCT INFLUENZA B (ID NOW RAPID MOLECULAR) [...] 7:26 PM EST C-REACTIVE PROTEIN Routine 08/26/2024 7 :26 PM EST HIGH SENSITIVITY TROPONIN I Routine 08/26/2024 7:26 PM EST MAGNESIUM Routine 08/26/2024 7:26 PM EST BASIC METABOLIC PANEL Routine 08/26/2024 7:26 PM EST HEPATIC FUNCTION PANEL Routine 7:26 PM EST CBC WITH AUTO DIFFERENTIAL Routine 08/26/2024 7:26 PM EST SARS COV2/INFLUENZA A/B AND RSV RNA QL NAAT Routine 08/26/2024 7:26 PM EST STREP A NUCLEIC ACID Routine 08/26/2024 7:26 PM EST PROPHYLAXIS - ADULT Routine 08/06/2024 1 2:00 PM EST Dental calculus Dental plaque HEPATITIS C AB W/REFL TO HCV RNA, [...] Recently Relevant to Health Maintenance Results * (ABNORMAL) Basic Metabolic Panel (11/14/2024 12:49 PM EDT) Only the most recent of3 resultswithin the time period is included. Sodium 141 135 - 145 mmol/L [facility] Potassium 4.3 3.3 - 5.1 mmol/L [facility] Chloride 108 96 - 108 mmol/L [facility] Carbon Dioxide 26 22 - 29 mmol/L [facility] Anion Gap 11(L) 12 - 20 [facility] Urea Nitrogen (BUN) 12 9 - 16 mg/dL [facility] Creatinine, Serum 0.80 0.5 - 1.4 mg/dL [facility] Estimated Glomerular Filt Rate >60 [facility] Comment:Chronic Kidney Disea se: Estimated GFR < 60 mL/min/[id number] Kidney Disease: Estimated GFR < 15 mL/min/1.73m2 Glucose 120(H) 60 - 115 mg/dL [facility] Calcium 9.3 8.4 - 10.2 mg/dL [facility] 11/14/2024 12:4 9 PM EDT 11/14/2024 12:54 PM EDT Generic External Data Provider LAB BLOOD ORDERAB LES Final Result Performing Organization Address [facility] Co de Phone Number [facility] [address] [place] [phone] * Influenza B (ID NOW Rapid Molecular) (10/28/2024 2:25 PM EDT) [facility] Influenza B Negative Negative, Indeterminate [facility] Swab 10/28/2024 2:25 PM EDT us [facility] SENIOR POINT OF CARE TEST ENTER/EDIT OR DERABLES Final Result Performing Organization Address [facility] de Phone Number [facility] [address] [place] [phone] * Influenza A (ID NOW Rapid Molecular) (10/28/2024 2:25 PM EDT) [facility] Influenza A Negative Negative, Indeterminate [facility] Swab 10/28/2024 2:25 PM EDT [facility] SENIOR POINT OF CARE TEST ENTER/EDIT OR DERABLES Final Result Performing Organization Address [facility] de Phone Number [facility] [address] [place] [phone] * POCT Rapid COVID Ag (10/28/2024 2:25 PM EDT) Rapid COVID Ag Negative [facility] Swab 10/28/2024 2:25 PM EDT Fozia Malik ANP POINT OF CARE TEST ENTER/EDIT OR DERABLES Final Result Performing Organization Address [facility] de Phone Number [facility] [address] [place] [phone] * POCT rapid strep A manually resulted (10/28/2024 2:25 PM EDT) [facility] Rapid Strep A Screen Negative Negative, None Detected [facility] Swab 10/28/2024 2:25 PM EDT Fozia Malik ANP POINT OF CARE TEST ENTER/EDIT OR DERABLES Final Result Performing Organization Address [facility] Number [facility] [address] [place] [phone] * High Sensitivity Troponin I (09/12/2024 2:41 PM EST) Only the most recent of3 resultswithin the time period is included. [facility] TROPONIN I HIGH SENSITIVITY <2.7 <3.5 - 17.0 ng/L [facility] Comment:The [place] high sens itivity Troponin-I results should beused in conjunction with other diagnostic information suchas ECG, clinical observations and information, and patientsymptoms to aid in the diagnosis of AK. 09/12/2024 2:41 PM EST 09/12/2024 2:45 PM EST Generic External Data Provider LAB BLOOD ORDERAB LES Final Result Performing Organization Address [facility] de Phone Number [facility] [address] [place] [phone] * SARS-CoV-2 RNA, Influenza A/B, and RSV RNA, Ql NAAT (09/12/2024 2:41 PM EST) Only the most recent of2 resultswithin the time period is included. Pathologist [facility] Influenza A PCR NEGATIVE Negative [facility] Influenza B PCR NEGATIVE Negative [facility] Resp Syncy Virus RNA Qual PCR NEGATIVE Negative [facility] SARS COV2 PCR NEGATIVE Negative [facility] Comment:All test results mus t [...] use by authorized laboratories.Testing performed on the [employer] GeneXpert utilizingreal-time RT-PCR.All SARS CoV2 and positive influenza A/B results arereported to [facility]. 09/12/2024 2:41 PM EST 09/12/2024 2:45 PM EST us Generic External Data Provider LAB MICROBIOLOGY - GENERAL ORDERABLES Final Result [facility] [address] [place] [phone] * (ABNORMAL) CBC auto differential (09/12/2024 2:41 PM EST) Only the most recent of2 resultswithin the time period is included. [facility] White Blood Count 11.6(H) 4.8 - 10.8 X10*3/uL [facility] Red Blood Count 4.89 4.20 - 5.50 X10*6/uL [facility] Hemoglobin 13.6 12.0 - 16.0 g/dl [facility] Hematocrit 39.5 37.0 - 47.0 % [facility] Mean Corpuscular Volume 80.8 80.0 - 98.0 fL [facility] Mean Corpuscular Hemoglobin 27.8 27.0 - 33.0 pg [facility] Mean Corpuscular HGB Conc 34.4 31.0 - 35.0 g/dl [facility] Red Cell Distribution Width 12.9 11.0 - 16.0 % [facility] Platelet Count 290 160 - 400 X10*3/uL [facility] Mean Platelet Volume 9.0(L) 9.4 - 12.3 fL [facility] Neutrophils Percent Auto 84.5(H) 45 - 73 % [facility] Imm Gran Pct Auto 0.4 0.0 - 0.4 % [facility] Lymphocytes Percent Auto 9.4(L) 20 - 40 % [facility] Monocytes Percent Auto 4.8 2 - 11 % [facility] Eosinophils Percent Auto 0.7 0 - 4 % [facility] Basophils Percent Auto 0.2 0 - 2 % [facility] NRBC Pct Auto 0.0 0.0 - 0.2 /100WBC [facility] Neutrophils Absolute Auto 9.8(H) 2.0 - 8.3 x10*3/uL [facility] Imm Gran Abs Auto 0.05(H) 0.00 - 0.03 X10*3/uL [facility] Lymphocytes Absolute Auto 1.1(L) 1.2 - 4.9 X10*3/uL [facility] Monocytes Absolute Auto 0.6 0.1 - 1.2 X10*3/uL [facility] Eosinophils Absolute Auto 0.1 0.0 - 0.4 X10*3/uL [facility] Basophils Absolute Auto 0.0 0.0 - 0.2 X10*3/uL [facility] NRBC Abs Auto 0.000 0.0 - 0.012 X10*3/uL [facility] 09/12/2024 2:41 PM EST 09/12/2024 2:45 PM EST us Generic External Data Provider LAB BLOOD ORDERAB LES Final Result [facility] [address] [place] [phone] [phone] * (ABNORMAL) Partial Thromboplastin Time, Activated (APTT) (09/12/2024 2:41 PM EST) [facility] Partial Thromboplastin Time 24.8(L) 26.0 - 36.8 SEC [facility] Comment:For information rega rding the monitoring of direct thrombininhibitors, please refer to Pharmacy. 09/12/2024 2:41 PM EST 09/12/2024 2:45 PM EST Generic External Data Provider LAB BLOOD ORDERAB LES Final Result [facility] [address] [place] [phone] * (ABNORMAL) Prothrombin Time-INR (09/12/2024 2:41 PM EST) [facility] Prothrombin Time 19.2(H) 10.9 - 12.4 SEC [facility] INTERNATIONAL NORM RATIO 1.6(H) 0.9 - 1.1 [facility] Comment:INTERNATIONAL NORMAL IZED RATIO (INR) [...] ORDERAB LES Final Result Performing Organization Address [facility]/ZIP Co de Phone Number [facility] [address] [place] [address] [phone] * Magnesium (09/12/2024 2:41 PM EST) Only the most recent of2 resultswithin the time period is included. Pathologist [facility] Magnesium 1.7 1.6 - 2.6 mg/dL [facility] 09/12/2024 2:41 PM EST 09/12/2024 2:45 PM EST Generic External Data Provider LAB BLOOD ORDERAB LES Final Result Performing Organization Address [facility] de Phone Number [facility] [address] [place] [phone] * (ABNORMAL) Hepatic Function Panel (09/12/2024 2:41 PM EST) Only the most recent of2 resultswithin the time period is included. [facility] Bilirubin, Total 1.3(H) 0.0 - 1.0 mg/dL [facility] Bilirubin, Direct 0.5 0.0 - 0.5 mg/dL [facility] Aspartate Amino Transferase 17 5 - 31 U/L [facility] Alanine Aminotransferase 38(H) 0 - 31 U/L [facility] Total Protein 7.9 6.5 - 8.0 g/dL [facility] Albumin Level 4.4 3.5 - 5.0 g/dL [facility] Alkaline Phosphatase 85 39 - 117 U/L [facility] 09/12/2024 2:41 PM EST 09/12/2024 2:45 PM EST Generic External Data Provider LAB BLOOD ORDERAB LES Final Result Performing Organization Address [facility] de Phone Number [facility] [address] [place] [phone] * XR Chest 1 View (09/12/2024 2:07 PM EST) Anatomical Region Laterality Modality Chest Radiographic Amna ging 09/12/2024 2:07 PM EST Narrative 09/12/2024 2:22 PM EST ? [facility] ?[address] ?[place] [address] ?XRay Report ? Signed ? Patient: Nicole,Roshelly ?MR#: [id number] ?? 362 ? : 1995 ?Acct:[id number] ? Age/Sex: 29 / F ?ADM Date: 09/12/24 ? Loc: HO.ED ? Attending Dr: ? Ordering Physician: Criss Adame ?? Date of Service: 09/12/24 ?? Procedure(s): XR chest 1V ?? Accession Number(s): [id number] ? cc: Vannesa Roca MD; Criss Adame [...] DD/ 1407 ? TD/TT: 09/12/24 1411 ? Nutritional Chemist: ? Procedure Note Pedroblackgarrettcruzito, Image - 09/12/2024 [place] [address] XRay Report Signed Patient: Jessica NicoleMR#: [id number] 362 : 1995Acct:[id number] Age/Sex: 29 / FADM Date: 09/12/24 Loc: HO.ED Attending Dr: Ordering Physician: Criss Adame Date of Service: 09/12/24 Procedure(s): XR chest 1V Accession Number(s): [id number] cc: Vannesa Roca MD; Criss Adame EXAMINATION: XR CHEST CLINICAL INFORMATION: sob COMPARISON: August 26, 2024. TECHNIQUE: Frontal view of the chest was obtained. FINDINGS: No consolidation, pleural effusion or pneumothorax. Cardiomediastinal silhouette is normal in size. Osseous structures are intact. XR/XR chest 1V IMPRESSION: No acute airspace disease. Electronically signed by: Mehdi hCeatham MD 09/12/2024 02:19 PM EST RP Dictated By: Mehdi Brewster MD Signed By: <Electronically signed by Mehdi Wilson MDin OV> 09/12/24 1419 DD/ 1407 TD/TT: 09/12/24 1411 Nutritional Chemist: [facility] External Provider IMG XR PROCEDURES Final Result * CTA Chest PE Protocal (08/26/2024 11:04 PM EST) Anatomical Region Laterality Modality Body, Chest Computed Tomogra phy 08/26/2024 11:0 4 PM EST Narrative 08/26/2024 11:06 PM EST ? [facility] ?[address] ?[place] [address] ? CT Scan Report ? Signed ? Patient: Jessica Nicole ?MR#: [id number] ?? 362 ? : 1995 ?Acct:[id number] ? Age/Sex: 29 / F ?ADM Date: 08/26/24 ? Loc: HO.ED ? Attending Dr: ? Ordering Physician: Vickie Soares DO ?? Date of Service: 08/26/24 ?? Procedure(s): CT angio chest PE protocol ?? Accession Number(s): [id number] ? cc: Vannesa Roca MD; Vickie Soares DO ? Report Number: ?? [id number]: Total DLP = ??285.00 mGy-cm ? CLINICAL [...] in OV> ? 08/26/24 2305 ? DD/ 03 ? TD/TT: 08/26/242303 ? Nutritional Chemist: ? Procedure Note Donotuseinterpreter, Image - 08/26/[address] [address] Scan Report Signed Patient: Jessica NicoleMR#: [id number] 362 : 1995Acct:[id number] Age/Sex: 29 / FADM Date: 08/26/24 Loc: HO.ED Attending Dr: Ordering Physician: Vickie Soares DO Date of Service: 08/26/24 Procedure(s): CT angio chest PE protocol Accession Number(s): [id number] cc: Vannesa Roca MD; Vickie Soares DO Report Number: [id number]: Total DLP = 285.00 mGy-cm CLINICAL HISTORY: [...] in OV> 08/26/242304 DD/ 03 TD/TT: 08/26/242303 Nutritional Chemist: [facility] External Provider IMG CT PROCEDURES Final Result * D Dimer High Sensitivity (08/26/2024 9:17 PM EST) Pathologist [facility] D Dimer High Sensitivity 165 NG/ML [facility] Comment:D-DIMER HS REFERENCE RANGENote: Our [...] ORDERAB LES Final Result Performing Organization Address [facility] Co de Phone Number [facility] [address] [place] [phone] * B Type Natriuretic Peptide (BNP) (08/26/2024 9:17 PM EST) Pathologist [facility] B Type Natriuretic Peptide 11 <100 pg/mL [facility] Comment:For those patients w ho are being treated with Natrecor(nesiritide, recombinant BNP), BNP testing should beperformed at least two hours post treatment in order toensure that only endogenous levels of BNP are detected. 08/26/2024 9:17 PM EST 08/26/2024 9:23 PM EST Generic External Data Provider LAB BLOOD ORDERAB LES Final Result Performing Organization Address [facility] Co de Phone Number [facility] [address] [place] [phone] * Lactic Acid (08/26/2024 9:17 PM EST) [facility] Lactic Acid 1.0 0.5 - 2.0 mmol/L [facility] 08/26/2024 9:17 PM EST 08/26/2024 9:23 PM EST us Generic External Data Provider LAB BLOOD ORDERAB LES Final Result [facility] [address] [place] [address] [phone] * XR Chest 2 Views (08/26/2024 7:27 PM EST) Anatomical Region Laterality Modality Chest Radiographic Amna ging 08/26/2024 7:27 PM EST Narrative 08/26/2024 7:29 PM EST ? [facility] ?[address] ?[place] [address] ?XRay Report ? Signed ? Patient: Nicole,Rosjose carlosly ?MR#: [id number] ?? 362 ? : 1995 ?Acct:[id number] ? Age/Sex: 29 / F ?ADM Date: 08/26/24 ? Loc: HO.ED ? Attending Dr: ? Ordering Physician: Nataly Richard ?? Date of Service: 08/26/24 ?? Procedure(s): XR chest 2V ?? Accession Number(s): [id number] ? cc: Vannesa Roca MD; Nataly Richard [...] ? DD/ 26 ? TD/TT: 08/26/241926 ? Nutritional Chemist: ? Procedure Note Gena Calle - 08/26/[address] [address] XRay Report Signed Patient: Jessica Nicole#: [id number] 362 : 1995Acct:[id number] Age/Sex: 29 / FADM Date: 08/26/24 Loc: HO.ED Attending Dr: Ordering Physician: Nataly Richard Date of Service: 08/26/24 Procedure(s): XR chest 2V Accession Number(s): [id number] cc: Vannesa Roca MD; Nataly Richard CLINICAL [...] in OV> 08/26/241927 DD/ 26 TD/TT: 08/26/241926 Nutritional Chemist: [facility] External Provider IMG XR PROCEDURES Final Result * Strep A Nucleic Acid (08/26/2024 7:26 PM EST) [employer]NOW SERIAL# [id number] [facility] Strep A Nucleic Acid Negative Negative [facility] Comment:All test results mus t [...] LAB MICROBIOLOGY - GENERAL ORDERABLES Final Result [facility] [address] [place] [phone] * (ABNORMAL) Sed Rate by Modified Alexaren (08/26/2024 7:26 PM EST) Erythrocyte Sedimentation Rate 22(H) 0 - 20 MM/HR [facility] Comment:Patients with polycy themia and many hemoglobin abnormalitiesmay have depressed sed rates whereas patients with anemiamay have elevated sed rates. 08/26/2024 7:26 PM EST 08/26/2024 9:33 PM EST Generic External Data Provider LAB BLOOD ORDERAB LES Final Result Performing Organization Address [facility] Co de Phone Number [facility] [address] [place] [phone] * (ABNORMAL) C-reactive Protein (08/26/2024 7:26 PM EST) C Reactive Protein 1.38(H) < or = 0.50 mg/dL [facility] 08/26/2024 7:26 PM EST 08/26/2024 7:31 PM EST Generic External Data Provider LAB BLOOD ORDERAB LES Final Result Performing Organization Address [facility] Co de Phone Number [facility] [address] [place] [phone] * hCG, Total, Quantitative (08/26/2024 7:26 PM EST) HCG Quantitative <2 mIU/mL [facility] Comment:Weeks post LMP Appro ximate hCG(Last Menstrual Period) Range (mIU/ml)3 - 4 weeks 9 - 1304 - 5 weeks 75 - 2,6005 - 6 weeks 850 - 20,8006 - 7 weeks 4000 - 100,2007 - 12 weeks 11,500 - 289,57821 - 16 weeks 18,300 - 137,84173 - 29 weeks (2nd trimester) 1,400 - 53,68046 - 41 weeks (3rd trimester) 940 - [...] ORDERAB LES Final Result Performing Organization Address [facility]/ZIP Co de Phone Number [facility] [address] [place] [phone] * Hepatitis C Antibody with Reflex to HCV, RNA, Quantitative, Real-Time PCR (10/31/2023 10:10 AM EDT) Hepatitis C Antibody Nonreactive Nonreactive [facility] Comment:Antibodies to HCV no t detected; does not exclude early acuteHCV infection. Blood Venous blood specimen / Unknown 10/31/2023 10:10 AM EDT 10/31/2023 11:53 AM EDT Ilda Andujar MD LAB BLOOD ORDERABLES Final Result Performing Organization Address City/[facility]/ZIP Co de Phone Number [facility] [address] [place] [address] [phone] * (ABNORMAL) Lipid Panel, Standard (10/31/2023 10:10 AM EDT) Triglycerides 89 <150 mg/dL [facility] Comment:Desirable Triglyceri de: less than 150 mg/dLBorderline High Triglyceride 150-199 mg/dLHigh Triglyceride: 200-499 mg/dLVery High Triglyceride: greater than or equal to 5OO mg/dL Cholesterol 163 <200 mg/dL [facility] Comment:Desirable Cholestero l: less than 200 mg/dLBorderline High Cholesterol: 200-239 mg/dLHigh Cholesterol: greater than 239 mg/dL LDL Cholesterol Calculated 104(H) <100 mg/dL [facility] Comment:Desirable LDL: less than 100 mg/dLNear Optimal/Above Optimal LDL: 110- 129 mg/dLBorderline High LDL: 130-159 mg/dLHigh LDL: 160-189 mg/dLVery High LDL: greater than or equal to 190 mg/dL HDL Cholesterol 42 >40 mg/dL [facility] Comment:Desirable HDL: great er than 40 mg/dL Note: This HDL assay may give artificially low results in patients with liver disease. Blood Venous blood specimen / Unknown 10/31/2023 10:10 AM EDT 10/31/2023 11:53 AM EDT us Ilda Andujar MD LAB BLOOD ORDERABLES Final Result [facility] [address] [place] [address] [phone] * HIV-1 antibody, EIA (01/16/2017) External HIV-1 Antibody Negative Blood Venous blood specimen / Unknown us Historical Provider LAB BLOOD ORDERABLES Lou l Result from Last 3 Months or Most Recently Relevant to Health Maintenance Insurance [facility] C[facility] ST[place] AD[place] Advance Directives Documents on File Type Date Recorded Patient Epic Professional Expl anation Advance Directives and Living Will 04/25/2024 11:16 AM Health Care Proxy Care Teams Memorial Marker Designer Relationship Specialty Start Date End Date Perris, MD Ilda [address] [place] [address] PCP - General Family Medicine 07/20/17 Pankaj Lopez MD [address] [place] [address] [address] [place] [address] Cardiology 08/27/24 Glenn Baptiste MD [address] [place] [phone] Hematology and Oncology 10/18/24 Tg Bernstein [facility] [place] Psychology 10/18/24 Shani Rodríguez [place], [place] Psychiatry 10/18/24
--- OUTSIDE RECORDS SUMMARY | 2024-11-14 15:18 | XMS_ITS | Encounter Summary ---
Author Organization [employer] Address [address] [place] [address] Care Team Providers Care Maintenance Welder Name Role Phone Ilda Andujar MD Primary Care Provider [phone] Pankaj Lopez MD Unavailable Glenn Baptiste MD Unavailable [phone] Encounter Details Date Type Department Care Team (Late st Contact Info) Description 07/05/2023 Abstract [facility] [address] [place], [place] [phone] Kaycee Ribeiro Social History Tobacco Use Types [...] the past 12 months, has t he [employer], oil or water company threatened to shut [...] Description 11/18/2024 11:00 AM EDT Office Visit [facility] [address] [place] [address] Bre Van 01/20/2025 10:30 AM EDT Office Visit [facility] [address] [place] [address] Ilda Andujar MD [address] [place] [address] documented as of this encounter Visit Diagnoses Not on filedocumented in this encounter Additional Health Concerns Assessment Noted Time PHQ-9 Depression Total Score: 3 04/19/20 23 10:58 AM EDT documented as of this encounter Care Teams Maintenance Welder Relationship Specialty Start Date End Date Ilda Andujar MD [address] [place] [address] PCP - General Family Medicine 07/20/17 Pankaj Lopez MD [address] [place] [address] 3rd [place] [address] Cardiology 08/27/24 Glenn Baptiste MD [address] [place] [phone] Hematology and Oncology 10/18/24 Tg Bernstein [facility] Psychology 10/18/24 Shani Rodríguez [place], [place] Psychiatry 10/18/24 documented as of this encounter
== END 2024-11-14 12:47 | disposition home or self-care (01) ==
LOC: HO.LAB 12:46
PROVIDERS: PCP Family Medicine
DX: I21.4 Non-ST elevation (NSTEMI) myocardial infarction (principal)
CPT/HCPCS: 36415; 80048

== ENCOUNTER 2025-04-23 14:51 | Outpatient (AMB) | payer MEDICAID, SELFPAY ==
--- NOTE | 2025-04-23 14:54 | MHC.OFFVIS ---
Vital Signs 04/23/25 14:55 Height 5 ft 7 in Weight 206 lb 12.697 oz BMI 32.4 BP 118/62 Blood Pressure Location Lt brachial Position Sitting Pulse 109 H Pulse Source Monitor Intake Visit Reasons: 6m follow up/cardiac MRI Hair Salon Manager Required: No Accompanied by: Self / Same As Patient Allergies No Known Allergies Allergy (Verified 04/23/25 15:01) Medication List - Last Reconciled 04/23/25 by Jarad Soria NP acetaminophen 325 mg PO DAILY PRN albuterol sulfate 90 mcg/actuation (Ventolin HFA) 2 puffs inhalation Q4H PRN aspirin 81 mg PO DAILY atorvastatin 40 mg PO DAILY HPI Comments Details: This is a 30-year-old trans male patient coming in for a follow-up visit. Patient was hospitalized back in August for acute chest pain with elevated troponins with echo showing regional wall motion abnormality in the RCA territory for which patient was transferred to [facility] for cardiac catheterization that showed minimal LAD disease. Given no clear explanation for his echo finding with elevated cardiac enzymes, patient underwent a cardiac MRI. Today, patient is here to review the results for this and is otherwise reporting feeling well overall without any exertional chest pain, shortness of breath, dizziness, orthopnea, PND, leg edema, presyncope or syncope. Patient does note that sometimes he can feel his heart racing but does acknowledge that he drinks caffeinated beverages such as energy drinks. Patient is otherwise active and walks a lot. Reports compliance with his medications. [facility] Medical History Kzow-tp-vuxjih transgender person Surgical History History of cardiac cath Family History Other No pertinent family history Social History Household Members: Other Household Members Other:: mother Housing: Apartment Do you presently have visiting nurse or other home services: No Alcohol intake: current Alcohol intake frequency: holidays/special occasions only Patient Tobacco Use Status: Never used Tobacco service: No Review of Systems Const Denies daytime sleepiness, Denies difficulty sleeping, Denies snoring, Denies stops breathing during sleep and Denies weakness Card Denies chest pain, Denies rapid heart rate, Denies irregular heart rhythm, Denies claudication, Denies leg edema, Denies lightheadedness, Reports palpitations, Denies dyspnea, Reports dyspnea on exertion, Denies orthopnea, Denies paroxysmal nocturnal dyspnea and Denies slow heart rate Resp Denies cough, Denies dyspnea, Reports dyspnea on exertion and Denies snoring GI Reports no additional complaints, Denies hematochezia, Denies change in stool character and Denies dyspepsia Musc Denies abnormal gait, Denies muscle weakness and Denies numbness Neuro Denies abnormal gait, Denies numbness and Denies weakness Endo Reports palpitations Physical Exam Vital Signs: Last Vital Signs Pulse 109 H 04/23/25 14:55 BP 118/62 04/23/25 14:55 BMI result Body Mass Index 32.4 Const General: cooperative, healthy appearing, comfortable and no acute distress Orientation/consciousness: patient oriented x3 HEENT Head: Yes normal to inspection Neck Neck: Yes normal visual inspection, Yes trachea midline and Yes supple Chest Chest palpation & inspection: normal inspection of the chest Resp Effort & Inspection: normal respiratory effort Auscultation: clear to auscultation bilaterally, no crackles, no rales, no rhonchi and no wheezes Cardio Jugular venous distension: no JVD Palpation: normal PMI Rate: tachycardic Rhythm: regular rhythm Heart sounds: S1 normal heart sound present, S2 normal heart sound present, no click, no gallops, no murmurs and no rubs Peripheral pulses: Peripheral pulses 2+ throughout GI Inspection: Yes normal to inspection Palpation (GI): Soft to palpation Auscultation: normal bowel sounds Skin General skin exam: no rashes or lesions noted Neuro General: patient oriented x3 Extrem General: Yes normal to inspection, No no pedal edema and No calf tenderness Psych Appearance: grossly normal Mental Status: mental status grossly normal Speech and movement: Normal speech and movement present Office Procedures EKG Details: EKG today showed sinus tachycardia, right bundle branch block, nonspecific STT wave abnormality, [place], [place]. [id number], Complete Assessment & Plan Assessment & Plan (1) NSTEMI (non-ST elevated myocardial infarction): Code(s): I21.4 - Non-ST elevation (NSTEMI) myocardial infarction Category: Medical (2) Status post cardiac catheterization: Code(s): Z98.890 - Other specified postprocedural states Category: Surgical (3) Sinus tachycardia: Code(s): R00.0 - Tachycardia, unspecified Category: Medical Plan 08/27/2024-patient's echocardiogram showed a normal LV EF between 55-60% with regional wall motion abnormality in the RCA territory. 08/29/2024-patient underwent a cardiac catheterization with Dr. Smith at [facility] that showed no significant coronary artery disease. Minimal stenosis in the proximal LAD. 12/02/2024-patient underwent a cardiac MRI a myocardial cleft otherwise normal study. Continue aspirin therapy and statin therapy, with the LDL goal less than 70. Recent labs showing stable electrolytes and kidney function. Heart rate today is elevated. Patient has the monster drink with them currently. Emphasized on the need to avoid caffeinated beverages completely. Patient verbalizes understanding. Blood pressure within normal range. Ideally, blood pressure less than 130/80. Emphasized on needed to complete the ordered echocardiogram to reassess the wall motion abnormality. Advised heart healthy diet, regular exercise, losing weight, adequate hydration, completely avoiding caffeinated beverages or any stimulants, and management of vascular risk factors. We will follow up with the patient in 4 months. In the interim, patient will call us with any concerns or change in symptoms. Advised patient to seek ER care in case of exertional chest pain not resolved with rest. This note was generated using voice recognition software. While every effort has been made to ensure accuracy and proper electronics teacher, there may be occasional errors that could affect the content or meaning of the described symptoms. Orders: Orders AMB EKG-In Office Today I21.4 - Non-ST elevation (NSTEMI) myocardial infarction Coding Level of Care Code Est Pt Level 4 (42554) Complex EM visit Add On G2211 Diagnoses NSTEMI (non-ST elevated myocardial infarction) I21.4 Status post cardiac catheterization Z98.890 Sinus tachycardia R00.0 CPT Codes EKG - CPT: 96051-Wrcswhvtozrlvjhrx, Complete ([id number]) Time Spent (min) 32 Comment Time spent in reviewing the chart, test results, assessment, counseling and documentation.
[2025-04-23 14:55] VITALS: BP 118/62; PULSE 109; BMI 32.4
--- OUTSIDE RECORDS SUMMARY | 2025-04-23 18:26 | XMS_ITS | Encounter Summary ---
Author Organization [employer] Address [address] [place] [address] Care Team Providers Care Nut Cracker Name Role Phone Ilda Andujar MD Primary Care Provider [phone] Pankaj Lopez MD Unavailable Glenn Baptiste MD Unavailable [phone] Encounter Details Date Type Department Care Team (Late st Contact Info) Description 07/05/2023 Abstract [facility] [address] [place], [place] [phone] Kaycee Ribeiro Social History Tobacco Use Types [...] t he electric, gas, oil or water [employer] threatened to shut off services in your [...] as of this encounter Plan of Treatment Not on file documented as of this encounter Visit Diagnoses Not on filedocumented in this encounter Additional Health Concerns Assessment Noted Time PHQ-9 Depression Total Score: 3 04/19/20 23 10:58 AM EDT documented as of this encounter Care Teams Nut Cracker Relationship Specialty Start Date End Date Ilda Andujar MD [address] [place] [address] PCP - General Family Medicine 07/20/17 Pankaj Lopez MD [address] [place] [address] [address] [place] [address] Cardiology 08/27/24 Glenn Baptiste MD [address] [place] [address] Hematology and Oncology 10/18/24 Tg Bernstein [facility] Psychology 10/18/24 Shani Rodríguez [place], [place] Psychiatry 10/18/24 documented as of this encounter
--- OUTSIDE RECORDS SUMMARY | 2025-04-23 18:26 | XMS_ITS | Clinical Summary ---
Author Organization [employer] Address [address] [facility] [facility] [address] [place] [address] Care Team Providers Care Snuff Blender Name Role Phone Ilda Andujar MD Primary Care Provider [phone] Pankaj Lopez MD Unavailable Glenn Baptiste MD Unavailable [phone] Allergies No known active allergies Medications * This document contains information received from the source organization and may not represent a complete record from that organization. sertraline (Zoloft) 25 MG tabletIndications :Depressive disorder Take by mouth Once per day. Per psych Shani Rodríguez Active albuterol 108 (90 Base) MCG/ACT inhalerIndication s:Mild intermittent asthma without complication Inhale 2 puffs every 4 (four) hours if needed for wheezing. 18 g 5 11/01/19 26 Active atorvastatin (Lipitor) 40 MG tabletIndications :NSTEMI (non-ST elevated myocardial infarction) (CMS/HCC) Take 1 tablet (40 mg) by mouth Once per day. 90 tablet 3 5 Active aspirin 81 MG EC tabletIndications :NSTEMI (non-ST elevated myocardial infarction) (CMS/HCC) Take 1 tablet (81 mg) by mouth Once per day. 90 tablet 3 5 Active spironolactone (Aldactone) 50 MG tabletIndications :Gender dysphoria Take 1 tablet (50 mg) by mouth Once per day. 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 Comprehensive hypercoagulable workup, including testing for Factor V Leiden mutation, prothrombin gene mutation, antiphospholipid antibodies, protein C and S levels, antithrombin 3 levels, and lupus anticoagulant, was obtained. Hypercoagulability workup revealed a heterozygous prothrombin [id number] mutation, a moderate risk inherited thrombophilia associated with an increased risk of initial and recurrent venous thromboembolism. The presence of heterozygous prothrombin gene mutation, while not high-risk on its own, increases risk for blood clotting while on estrogen therapy. -note from hematology 03/14/25 reprots she can go back to the estrogen now that her coronary workup is nonrevealing. She has heterozygous prothrombin mutation, however the risk is less compared to homozygous. -stay on the baby aspirin for protection. Dr. Baptiste. Assessment & Plan (01/20/2025 3:28 PM EDT): Seen by Hematology 10/17/24 who recommend coagulative work and avoiding Estrogen if possible right now and as long as possible in the future. Comprehensive hypercoagulable workup, including testing for Factor V Leiden mutation, prothrombin gene mutation, antiphospholipid antibodies, protein C and S levels, antithrombin 3 levels, and lupus anticoagulant, was obtained. Hypercoagulability workup revealed a heterozygous prothrombin [id number] mutation, a moderate risk inherited thrombophilia associated with an increased risk of initial and recurrent venous thromboembolism. The presence of heterozygous prothrombin gene mutation, while not high-risk on its own, increases risk for blood clotting while on estrogen therapy. PLAN: She will continue on baby Aspirin. Would like to avoid estrogen, if at all possible. She agrees and will follow up with her PCP and flumer to further discuss it. She will return in 3 months for a follow-up visit with Dr. Baptiste. Depressive disorder 10/18/2024 Overview (10/18/2024): -[facility] dx pt with social anxiety disorder and PTSD on 12/05/23 -referred to behavioral health 04/24/24 -sees Therapist in [place], named Yeimi. Assessment & Plan (10/18/2024 10:26 AM EDT): -[facility] dx pt with social anxiety disorder and PTSD on 12/05/23 -referred to behavioral health 04/24/24 -sees Therapist in [place], named Yeimi. Class 1 obesity due to exces s calories without serious comorbidity with body mass index (BMI) of 31.0 to 31.9 in adult 09/09/2024 Assessment & Plan (10/18/2024 10:26 AM EDT): Discussed weight, diet, exercise with patient in relation to health conditions. Used motivational interviewing to illicit change talk and established initial goals with patient. HTN (hypertension) 09/09/2024 Hyperlipidemia 09/09/2024 Overview (01/20/2025): Lab Results Component Value Date CHOL 163 10/31/2023 CHOL 168 01/16/2017 TRIG 89 10/31/2023 TRIG 62 01/16/2017 HDL 42 10/31/2023 HDL 39 01/16/2017 LDLCHOLCAL 104 (H) 10/31/2023 LDL 111 01/16/2017 -continue lifestyle modification NSTEMI (non-ST elevated myocardial infarction) 0 08/27/2024 Overview (03/17/2025): NSTEMI 08/27/24, Per flumer Dr. Lopez, Patient without any significant risk [...] the RCA territory on echocardiogram Transferred to [facility]. -in [facility] troponin peaked at 73. EKG without ST [...] by hematology 10/17/24 proceed with a hypercoagulable workup that revealed a heterozygous prothrombin [id number] mutation, a moderate risk inherited thrombophilia associated with an increased risk of initial and recurrent venous thromboembolism. The presence of heterozygous prothrombin gene mutation, while not high-risk on its own, increases risk for blood clotting while on estrogen therapy. She is no longer on estrogen. -Cardiac MRI done on 11-29-24. Impression: left ventricle normal, left ventricular systolic function is normal with an EF of 55% with normal wall motion. Right ventricle is normal, no valvular dysfunction noted, no evidence of myocardial edema or inflammation, and no MRI evidence of infarction, myocarditis, or hypertrophic cardiomyopathy. -note from hematology 03/14/25 reprots she can go back to the estrogen now that her coronary workup is nonrevealing. She has heterozygous prothrombin mutation, however the risk is less compared to homozygous. -stay on the baby aspirin for protection. Assessment & Plan (01/20/2025 3:28 PM EDT): NSTEMI 08/27/24, Per flumer Dr. John, Patient without any significant risk factors currently [...] the RCA territory on echocardiogram Transferred to [facility]. -in [facility] troponin peaked at 73. EKG without ST [...] by hematology 10/17/24 proceed with a hypercoagulable workup that revealed a heterozygous prothrombin [id number] mutation, a moderate risk inherited thrombophilia associated with an increased risk of initial and recurrent venous thromboembolism. The presence of heterozygous prothrombin gene mutation, while not high-risk on its own, increases risk for blood clotting while on estrogen therapy. She is no longer on estrogen. -Cardiac MRI done on 11-29-24. Impression: left ventricle normal, left ventricular systolic function is normal with an EF of 55% with normal wall motion. Right ventricle is normal, no valvular dysfunction noted, no evidence of myocardial edema or inflammation, and no MRI evidence of infarction, myocarditis, or hypertrophic cardiomyopathy. Assessment & Plan (10/18/2024 10:24 AM EDT): NSTEMI 08/27/24, Per flumer Dr. Lopez, Patient without any significant risk [...] the RCA territory on echocardiogram Transferred to [facility]. She had been taking Provera and estradiol and spironolactone, as the hormonal therapy. -Question is if that led to the ischemic event. -The other possibility is that of an underlying hypercoagulable state. -in [facility] troponin peaked at 73. EKG without ST [...] up cardiology who had a Non ST-elevation CT, back in August. -seen by hematology 10/17/24 [...] in the future. -has appt. with cardiology 3/27/25 Assessment & Plan (09/09/2024 2:22 PM EST): NSTEMI 08/27/24, Per flumer Dr. Lopez, Patient without any significant risk [...] the RCA territory on echocardiogram Transferred to [facility]. -in [facility] troponin peaked at 73. EKG without ST [...] traumatic stress disorder (PTSD) 04/24/2024 Overview (10/18/2024): -[facility] dx pt with social anxiety disorder and PTSD on 12/05/23 -referred to behavioral health 04/24/24 -sees Therapist in [place], sen Jalloh. Assessment & Plan (10/18/2024 10:15 AM EDT): -[facility] dx pt with social anxiety disorder and PTSD on 12/05/23 -referred to behavioral health 04/24/24 -sees Therapist in [place], sen Jalloh. Assessment & Plan (04/24/2024 3:39 PM EDT): -[facility] dx pt with social anxiety disorder and PTSD on 12/05/23 -referred to behavioral health 04/24/24 Social anxiety disorder 04/24/2024 Overview (10/18/2024): -[facility] dx pt with social anxiety disorder and PTSD on 12/05/23 -referred to behavioral health 04/24/24 -sees Therapist in [place], named Yeimi. Assessment & Plan (10/18/2024 10:15 AM EDT): -[facility] dx pt with social anxiety disorder and PTSD on 12/05/23 -referred to behavioral health 04/24/24 -sees Therapist in [place], named Yeimi. Assessment & Plan (05/01/2024 2:32 [...] her medical chart. He was referred to [facility] in the past for autism evaluation. Pt [...] protective factors. Provided information for CB and [facility] help line. clinician will place referrals for Psychiatry services and OP individual therapy. Pt is aware of importance of connecting with services. Provided coping mechanisms to incorporate into daily routine. Assessment & Plan (04/24/2024 3:39 PM EDT): -[facility] dx pt with social anxiety disorder and PTSD on 12/05/23 -referred to behavioral health 04/24/24 Pain 04/24/2024 Gender dysphoria 10/16/2023 Overview (03/17/2025): Jessica meets DSM-5 criteria for gender dysphoria. They have expressed a persistent and well-documented experience of incongruence between their gender identity and assigned sex at . -Pt uses she/her pronouns -Given the number for [employer] [facility] [phone] on 10/16/2023 -Given a list of voice coaches on 10/16/2023 -pt has therapist -start estradiol cypionate 5mg/ml, 0.4 ml q week (2mg) restarted on 06/07/24 however pt had NSTEMI, and estrogen stopped for further work up. -seen by hematology 10/17/24 and hypercoagulable work revealed workup revealed a heterozygous prothrombin [id number] mutation, a moderate risk inherited thrombophilia associated with an increased risk of initial and recurrent venous thromboembolism. The presence of heterozygous prothrombin gene mutation, while not high-risk on its own, increases risk for blood clotting while on estrogen therapy. -note from hematology 03/14/25 reprots she can go back to the estrogen now that her coronary workup is nonrevealing. She has heterozygous prothrombin mutation, however the risk is less compared to homozygous. -stay on the baby aspirin for protection. Assessment & Plan (01/20/2025 3:28 PM EDT): Jessica meets DSM-5 criteria for gender dysphoria. They have expressed a persistent and well-documented experience of incongruence between their gender identity and assigned sex at . -Pt uses she/her pronouns -Given the number for [employer] [facility] [phone] on 10/16/2023 -Given a list of voice coaches on 10/16/2023 -pt has therapist -start estradiol cypionate 5mg/ml, 0.4 ml q week (2mg) restarted on 06/07/24 however pt had NSTEMI, and estrogen stopped for further work up. -seen by hematology 10/17/24 and hypercoagulable work revealed workup revealed a heterozygous prothrombin [id number] mutation, a moderate risk inherited thrombophilia associated with an increased risk of initial and recurrent venous thromboembolism. The presence of heterozygous prothrombin gene mutation, while not high-risk on its own, increases risk for blood clotting while on estrogen therapy. -hematology states would like to avoid estrogen, if at all possible. She will remain off estrogen. -continue on baby Aspirin. Assessment & Plan (09/09/2024 2:23 PM EST): -Pt uses she/her pronouns -Has been on medication but declines at this time due to difficulties taking medications -Given the number for [employer] [facility] [phone] on 10/16/2023 - Given a list of [...] [employer] [facility] [phone] on 10/16/2023 - Given a list of [...] [employer] [facility] [phone] on 10/16/2023 - Given a list of voice coaches on 10/16/2023 Other specified health status 04/17/2023 Overview (10/18/2024): -next physical exam due after 10/18/25 -eye care referral to [facility] on 10/16/2023 -dental home is [facility] -health care proxy paper work filed 10/16/23 Assessment & Plan (10/18/2024 10:25 AM EDT): -next physical exam due after 10/18/25 -eye care referral to [facility] on 10/16/2023 -dental home is [facility] -health care proxy paper work filed 10/16/23 Assessment & Plan (10/16/2023 10:50 AM EDT): -next physical exam due after 10/15/2024 -eye care referral to [facility] on 10/16/2023, pt wants to discuss getting new frames -dental home is [facility] - Health care proxy paperwork provided [...] her medical chart. He was referred to [facility] in the past for autism evaluation. Pt [...] protective factors. Provided information for [facility] and [facility] help line. clinician will place referrals for Psychiatry services and OP individual therapy. Pt is aware of importance of connecting with services. Provided coping mechanisms to incorporate into daily routine. Assessment & Plan (10/16/2023 10:37 AM EDT): Evaluated by behavior [facility] 11/24/2022. -Refered to empowerment project by [facility]. Assessment & Plan (04/19/2023 10:56 AM EDT): Evaluated by behavior health 11/24/2022. -Refered to empowerment project by [facility]. Autistic behavior 11/15/2022 Overview (06/07/2024): Pt presents as autistic and is having difficulties interacting. Pt would like to be evaluated in hopes they may have social training therapy. -Sent to [facility] for autism screening 11/24/2022. -Pt will see Iqra Mabry with [facility]. -Referal done to [facility] 04/19/2023 for adult autism teting done at [facility]. -Has an appointment at [facility] on 10/24/2023 at 2PM -[facility] did not meet criteria for Autism spectrum disorder. [facility] dx pt with social anxiety disorder and PTSD on 2023. -patient has behaviors consistent with Autisim Assessment & Plan (10/18/2024 10:27 AM EDT): Pt presents as autistic and is having difficulties interacting. Pt would like to be evaluated in hopes they may have social training therapy. -Sent to [facility] for autism screening 11/24/2022. -Pt will see Iqra Mabry with behavioral health. -Referal done to behavioral health 04/19/2023 for adult autism teting done at [facility]. -Has an appointment at [facility] on 10/24/2023 at 2PM -[facility] did not meet criteria for Autism spectrum disorder. [facility] dx pt with social anxiety disorder and PTSD on 2023. -patient has behaviors consistent with Autisim Assessment & Plan (04/24/2024 3:38 PM EDT): Pt presents as autistic and is having difficulties interacting. Pt would like to be evaluated in hopes they may have social training therapy. -Sent to [facility] for autism screening 11/24/2022. -Pt will see Iqra Mabry with behavioral health. -Referal done to behavioral health 04/19/2023 for adult autism teting done at [facility]. -Has an appointment at [facility] on 10/24/2023 at 2PM -[facility] dx pt with social anxiety disorder and PTSD on 12/05/23 Assessment & Plan (10/16/2023 10:21 AM EDT): Pt presents as autistic and is having difficulties interacting. Pt would like to be evaluated in hopes they may have social training therapy. -Sent to [facility] for autism screening 11/24/2022. -Pt will see Iqra Mabry with behavioral health. -Referal done to behavioral health 04/19/2023 for adult autism teting done at [facility]. -Has an appointment at [facility] on 10/24/2023 at 2PM Assessment & Plan (04/19/2023 11:17 AM EDT): Pt presents as autistic and is having difficulties interacting. Pt would like to be evaluated in hopes they may have social training therapy. -Sent to [facility] for autism screening 11/24/2022. -Pt will see Iqra Marby with behavioral health. -Referal done to behavioral health 04/19/2023 for adult autism teting done at [facility]. Assessment & Plan (11/16/2022 11:50 AM EDT): [...] Problem Noted Date Diagnosed Date Resolved Date Exercise counseling 09/09/2024 12/28/19 Assessment & Plan (10/18/2024 10:25 AM EDT): [...] in added sugars, saturated fat, and sodium. Otitis externa 09/09/2024 12/27/2024 Muscle cramping 04/19/2023 12/27/2024 Overview (04/19/2023): Magnesium given 04/19/2023. Assessment & Plan (04/19/2023 11:19 AM EDT): Magnesium given 04/19/2023. Ear discomfort, bilateral 04/19/2023 Encounters Date Type Department Care Team Description 02/06/2025 11:00 AM EDT Office Visit [facility] [address] [place] [address] Dorina Moss from Last 3 Months Immunizations Immunization Administration Dates Next Due Hep B, adult [...] Sign Reading Time Taken Comments Blood Pressure 126/76 02/06/2025 11:06 AM EDT Pulse 88 02/06/2025 11:06 AM EDT Temperature 37.2 C (98.9 F) 01/20/2025 11:02 AM EDT Respiratory Rate 20 01/20/2025 11:02 AM EDT Oxygen Saturation 97% 01/20/2025 11:02 AM EDT Inhaled Oxygen Concentration - - Weight 92.3 kg (203 lb 6.4 oz) 01/20/2025 11:02 AM EDT Height 170.2 cm (5' 7 ) 01/20/2025 11:02 AM EDT Body Mass Index 31.86 01/20/2025 11:02 AM EDT Plan of Treatment Health Maintenance Due Date Last Done Comments Dental X-Ray: Full Mouth 1995 HPV Vaccines (1 - 3-dose series) 2010 Dental Prophylaxis 02/04/2025 08/06/2024, 0 01/16/2024, 06/01/2023 Influenza Vaccine (#1) 2025 , 04/19/2023, 05/24/2022, Additional history exists Dental Oral Exam 05/21/2025 11/18/2024, 05/18/2023 Alcohol/Substance Use Screening 06/07/2025 06/07/2024 Family Planning (PISQ) 09/09/2025 09/09/2024 Depression Screening 10/18/2025 10/18/2024, 10/19/19 25 SDOH Screening 10/18/2025 10/18/2024 Dental X-Ray: Bitewings 11/19/2025 11/18/2024 Disability Screening 01/20/2026 01/20/2025 Tobacco Screening 02/06/2026 02/06/2025 DTaP/Tdap/Td Vaccines (2 - Td or Tdap) 07/02/2027 06/22/2017 Postponed from 06/22/2027 (Other Medical Reasons) Lipid Panel 10/30/2028 10/31/2023, 01/16/2017 Zoster Vaccines (1 of 2) 2045 RSV Patients and Patients Aged 60 years or older (1 - 1-dose 75+ series) 2070 HIV Screening Completed 01/16/2017 Hepatitis B Vaccines Completed 10/20/2023, 05/19/2023, 04/19/2023 Hepatitis C Screening Completed 10/31/2023 Pneumococcal Vaccine: Pediatrics (0 to 5 Years) and At-Risk Patients (6 to 49) Years Completed 04/24/2024 COVID-19 Vaccine Completed 06/07/2024, , 03/01/2021, Additional history exists HIB Vaccines Aged Out No longer eligi ble based on patient's age to complete this topic Hepatitis A Vaccines Aged Out No long er eligible based on patient's age to complete this topic IPV Vaccines Aged Out No longer eligi ble based on patient's age to complete this topic Meningococcal B Vaccine Aged Out No l onger eligible based on patient's age to complete [...] Procedure Name Priority Date/Time Associated Diagnosis Comments CASE PRESENTATION, DETAILED AND EXTENSIVE TREATMENT PLANNING Routine 02/06/2025 11:00 AM EDT UL PERIODONTAL SCALING AND ROOT PLANING - 4 OR MORE TEETH PER QUADRANT Routine 02/06/2025 11:00 AM EDT LL PERIODONTAL SCALING AND ROOT PLANING - 4 OR MORE TEETH PER QUADRANT Routine 02/06/2025 11:00 AM EDT BITEWINGS - 4 RADIOGRAPHIC IMAGES Routine 11/18/2024 11:00 AM EDT PERIODIC ORAL EVALUATION - ESTABLISHED PATIENT Routine 11/18/2024 11:00 AM EDT Dental caries Encounter for dental examination Dental calculus Dental plaque PROPHYLAXIS - ADULT Routine 08/06/2024 1 2:00 PM EST Dental calculus Dental plaque HEPATITIS C AB W/REFL TO HCV RNA, QN, PCR Routine 10/31/2023 10:10 AM EDT Encounter for hepatitis C screening test for low risk patient LIPID PANEL, STANDARD Routine 10/31/2023 10:10 AM EDT Gender dysphoria HIV-1 ANTIBODY, EIA Routine 01/16/2017 from Last 3 Months or Most Recently Relevant to Health Maintenance Results * Hepatitis C Antibody with Reflex to HCV, RNA, Quantitative, Real-Time PCR (10/31/2023 10:10 AM EDT) Pathologist [facility] Hepatitis C Antibody Nonreactive Nonreactive [facility] Comment:Antibodies to HCV no t detected; does not exclude early acuteHCV infection. Blood Venous blood specimen / Unknown 10/31/2023 10:10 AM EDT 10/31/2023 11:53 AM EDT us Ilda Andujar MD LAB BLOOD ORDERABLES Final Result [facility] [address] [place] [phone] * (ABNORMAL) Lipid Panel, Standard (10/31/2023 10:10 AM EDT) Triglycerides 89 <150 mg/dL [facility] Comment:Desirable Triglyceri de: less than 150 mg/dLBorderline High Triglyceride 150-199 mg/dLHigh Triglyceride: 200-499 mg/dLVery High Triglyceride: greater than or equal to 5OO mg/dL Cholesterol 163 <200 mg/dL [facility] Comment:Desirable Cholestero l: less than 200 mg/dLBorderline High Cholesterol: 200-239 mg/dLHigh Cholesterol: greater than 239 mg/dL LDL Cholesterol Calculated 104(H) <100 mg/dL [facility] Comment:Desirable LDL: less than 100 mg/dLNear Optimal/Above Optimal LDL: 110- 129 mg/dLBorderline High LDL: 130-159 mg/dLHigh LDL: 160-189 mg/dLVery High LDL: greater than or equal to 190 mg/dL HDL Cholesterol 42 >40 mg/dL [facility] Comment:Desirable HDL: great er than 40 mg/dL Note: This HDL assay may give artificially low results in patients with liver disease. 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
--- OUTSIDE RECORDS SUMMARY | 2025-04-23 18:26 | XMS_ITS | Encounter Summary ---
Author Organization [employer] Address [address] [facility] [place] [address] Care Team Providers Care Clin Nurse Name Role Phone Ilda Andujar MD Primary Care Provider [phone] Pankaj Lopez MD Unavailable Glenn Baptiste MD Unavailable [phone] Reason for Visit * Reason Onset Date Comments rs appt 08/01/2024 Encounter Details Date Type Department Care Team (Late st Contact Info) Description 08/01/2024 Telephone C [facility] [address] [place] [address] Jenise Aguillon rs appt Social History Tobacco Use Types [...] documented as of this encounter Care Teams Clin Nurse Relationship Specialty Start Date End Date Ilda Andujar MD [address] [place] [address] PCP - General Family Medicine 07/20/17 Pankaj Lopez MD [address] [facility] [address] [place] [address] Cardiology 08/27/24 Glenn Baptiste MD [address] [place] [id number] Hematology and Oncology 10/18/24 Tg Bernstein [facility] in [place] Psychology 10/18/24 Shani Rodríguez [place], [place] Psychiatry 10/18/24 documented as of this encounter
--- OUTSIDE RECORDS SUMMARY | 2025-04-23 18:26 | XMS_ITS | Encounter Summary ---
Author Organization [employer] Address [address] [facility] [address] [place] [address] Care Team Providers Care Associate Professor Of Automation Name Role Phone Ilda Andujar MD Primary Care Provider [phone] Pankaj Lopez MD Unavailable Glenn Baptiste MD Unavailable [phone] Encounter Details Date Type Department Care Team (Late st Contact Info) Description 11/15/2022 Abstract [facility] MEDIC[facility] [address] [place], [place] [id number] Ilda Andujar MD [address] [place], [place] [phone] Social History Tobacco Use Types Packs/Day Years [...] on file documented as of this encounter Procedures Procedure [...] on filedocumented in this encounter Care Teams Associate Professor Of Automation Relationship Specialty Start Date End Date Ilda Andujar MD [address] [place] [address] PCP - General Family Medicine 07/20/17 Pankaj Lopez MD [address] [place] [address] [address] [place] [address] Cardiology 08/27/24 Glenn Baptiste MD [address] [place] [phone] Hematology and Oncology 10/18/24 Tg Bernstein [facility] in [place] Psychology 10/18/24 Shani Rodríguez [place], [place] Psychiatry 10/18/24 documented as of this encounter
== END 2025-04-23 15:41 | disposition home or self-care (01) ==
LOC: HO.HCS 14:51
PROVIDERS: PCP Family Medicine
DX: I21.4 Non-ST elevation (NSTEMI) myocardial infarction (principal); Z98.890 Other specified postprocedural states; R00.0 Tachycardia, unspecified
CPT/HCPCS: 93010; 99214

== ENCOUNTER → 2025-04-23 14:51 | Outpatient (BNVA) | payer MEDICAID, SELFPAY | PROVIDERS: PCP Family Medicine | DX: I25.2 Old myocardial infarction (principal); R00.0 Tachycardia, unspecified; Z98.890 Other specified postprocedural states; I45.10 Unspecified right bundle-branch block; R94.31 Abnormal electrocardiogram [ECG] [EKG] | CPT/HCPCS: 93005; 99212 ==